=== PATIENT | female | born 1945 | race African-American/Black ===

== ENCOUNTER → 2016-03-05 | Outpatient (CLI) | payer OTHER, MEDICAID ==
[~2016-03-05] MED LIST: ASPI81TA27 PO; CLOP75TA28 PO; GABA300C PO; GLIM4TAB42 PO; HYDR25TA4 PO; INSUINJ32 SC; LOS50T PO; MAGN400T5 PO; METF-316 PO; METO50TA7 PO; OMEP20CA5 PO; SIMV-8 PO; TRAM50TA2 PO
[2016-03-05 08:44] LABS: Urine Bilirubin Negative (Negative); Urine Blood TRACE /uL (Negative); Urine Color Yellow (Yellow); Urine Ketone Negative (Negative); Urine Nitrite Negative (Negative); Urine Urobilinogen Normal (Negative); Urine pH 5.5 (5.0-8.0)
[2016-03-05 08:45] LABS: Urine Glucose 3+ mg/dL (Normal)
[2016-03-05 08:53] LABS: INR 1.06 (0.9-1.15); Partial Thromboplastin Time 26.4 sec (22.64-33.71); Prothrombin Time 10.9 sec (9.37-12.3)
[2016-03-05 09:17] LABS: Albumin 3.5 g/dL (3.4-5.0); BUN/Creatinine Ratio 21.9; Bilirubin, Total 0.4 mg/dL (0.2-1.0); Calcium 9.5 mg/dL (8.5-10.1); Potassium 3.8 mmol/L (3.5-5.1); Total Protein 7.6 g/dL (6.4-8.2)
[2016-03-05 09:36] LABS: Basophils # (auto) 0.2 uL; Basophils % (auto) 3.9 % (0.0-2.0); DEFINITIVE VIEW TRANSMISSION; Eosinophils # (auto) 0.1 uL; Eosinophils % (auto) 1.5 % (0.0-7.0); Hematocrit 44.9 % (36.0-46.0); Hemoglobin 14.2 g/dL (12.2-16.2); Lymphocytes # (auto) 2.2 uL; Lymphocytes % (auto) 44.3 % (10.0-50.0); Mean Corpuscular Hgb Conc. 31.7 g/dL (32.0-36.0); Mean Corpuscular Volume 91.6 fL (80.0-100.0); Mean Platelet Volume 10.2 fL (7.4-10.4); Monocytes # (auto) 0.3 uL; Neutrophils # (auto) 2.1 uL; Neutrophils % (auto) 43.3 % (37.0-80.0); Platelet Count (auto) 294 10^3/uL (140-450); Red Cell Distribution Width 13.8 % (11.6-16.0); SUSPECT VIEW TRANSMISSION; White Blood Cell 4.9 10^3/uL (4.4-10.8)
== END | disposition home or self-care (01) ==
LOC: LAB 07:24
PROVIDERS: ATTEND Internal Medicine
DX: Z01.812 Encounter for preprocedural laboratory examination (principal)
CPT/HCPCS: 36415; 80053; 81003; 85025; 85610; 85730

== ENCOUNTER 2016-06-01 07:53 | Day surgery (SDC) | payer OTHER, MEDICAID ==
[2016-05-29 08:58] LABS: Basophils # (auto) 0 uL; Basophils % (auto) 0.4 % (0.0-2.0); Eosinophils # (auto) 0.1 uL; Eosinophils % (auto) 1.3 % (0.0-7.0); Hematocrit 43.7 % (36.0-46.0); Hemoglobin 14.2 g/dL (12.2-16.2); Lymphocytes # (auto) 2.2 uL; Lymphocytes % (auto) 38.3 % (10.0-50.0); Mean Corpuscular Hemoglobin 29.6 pg (28.0-32.0); Mean Corpuscular Hgb Conc. 32.5 g/dL (32.0-36.0); Mean Platelet Volume 10.6 fL (7.4-10.4); Monocytes # (auto) 0.4 uL; Monocytes % (auto) 6.2 % (0.0-12.0); Neutrophils % (auto) 53.8 % (37.0-80.0); Platelet Count (auto) 320 10^3/uL (140-450); Red Cell Distribution Width 14.4 % (11.6-16.0); White Blood Cell 5.6 10^3/uL (4.4-10.8)
[2016-05-29 09:11] LABS: INR 0.99 (0.9-1.15); Partial Thromboplastin Time 27.5 sec (22.64-33.71); Prothrombin Time 10.7 sec (9.37-12.3)
[~2016-06-01] VITALS: Ht 170.2 cm; Wt 111.6 kg
[~2016-06-01 07:53] MED LIST changes: -GLIM4TAB42 PO; -MAGN400T5 PO; -METF-316 PO; +METF-372 PO; -OMEP20CA5 PO; +OMEP20CA74 PO
[2016-06-01] MEDS ORDERED: NALOXONE HCL 0.4 MG/ML VIAL ONE (08:12)
[2016-06-01] MEDS ORDERED: FLUMAZENIL 0.1 MG/ML INJ 10ML MDV IV ONE (08:12)
[2016-06-01] MEDS ORDERED: SODIUM CHLORIDE LOCK 10 ML ONE (08:12)
[2016-06-01] MEDS ORDERED: diphenhdrAMINE HCL 50 MG/1 ML VL ONE (08:13)
[2016-06-01] MEDS: fentaNYL CITRATE 100 MCG/2 ML VL ONE ×2 (08:58→09:02)
[2016-06-01] MEDS: MIDAZOLAM HCL 5 MG/ML-1ML VIAL ONE ×2 (08:58→09:02)
[2016-06-01] MEDS ORDERED: LABETALOL HCL 5 MG/ML 4ML SYRINGE IV ONE ×2 (09:48→10:00)
[2016-06-01 10:14] VITALS: BP 144/85
== END 2016-06-01 10:14 | disposition home or self-care (01) ==
LOC: GI 07:53
PROVIDERS: ATTEND Internal Medicine Gastroenterology
DX: Z12.11 Encounter for screening for malignant neoplasm of colon (principal); K64.8 Other hemorrhoids; K57.30 Diverticulosis of large intestine without perforation or abscess without bleeding; K63.89 Other specified diseases of intestine; Z86.010 Personal history of colon polyps; J44.9 Chronic obstructive pulmonary disease, unspecified; J43.9 Emphysema, unspecified; E66.9 Obesity, unspecified; Z98.51 Tubal ligation status; E11.9 Type 2 diabetes mellitus without complications; Z87.891 Personal history of nicotine dependence; Z90.49 Acquired absence of other specified parts of digestive tract
CPT/HCPCS: 36415; 45378; 82962; 85025; 85610; 85730; J1200; J2250; J3010; J3490; J7030

== ENCOUNTER → 2016-08-10 | Outpatient (CLI) | payer OTHER, MEDICAID ==
[2016-08-10 09:43] LABS: Urine Bilirubin Negative (Negative); Urine Blood TRACE /uL (Negative); Urine Color Yellow (Yellow); Urine Ketone Negative (Negative); Urine Nitrite Negative (Negative); Urine Urobilinogen Normal (Negative); Urine pH 5.5 (5.0-8.0)
[2016-08-10 09:47] LABS: Urine Glucose 4+ mg/dL (Normal)
[2016-08-10 09:53] LABS: Basophils # (auto) 0 uL; Basophils % (auto) 0.5 % (0.0-2.0); CONDITION Y; Eosinophils # (auto) 0.1 uL; Eosinophils % (auto) 1.2 % (0.0-7.0); Hematocrit 39.4 % (36.0-46.0); Hemoglobin 13.3 g/dL (12.2-16.2); Lymphocytes # (auto) 2.2 uL; Mean Corpuscular Hemoglobin 30.3 pg (28.0-32.0); Mean Corpuscular Hgb Conc. 33.7 g/dL (32.0-36.0); Mean Corpuscular Volume 89.8 fL (80.0-100.0); Mean Platelet Volume 10.7 fL (7.4-10.4); Monocytes # (auto) 0.3 uL; Monocytes % (auto) 4.8 % (0.0-12.0); Neutrophils # (auto) 3.1 uL; Neutrophils % (auto) 54.5 % (37.0-80.0); Platelet Count (auto) 333 10^3/uL (140-450); Red Cell Distribution Width 14.6 % (11.6-16.0); White Blood Cell 5.7 10^3/uL (4.4-10.8)
[2016-08-10 09:58] LABS: INR 0.99 (0.9-1.15); Partial Thromboplastin Time 26.9 sec (22.64-33.71); Prothrombin Time 10.8 sec (9.37-12.3)
[2016-08-10 10:07] LABS: Albumin 3.2 g/dL (3.4-5.0); BUN/Creatinine Ratio 21.2; Bilirubin, Total 0.3 mg/dL (0.2-1.0); Calcium 9.2 mg/dL (8.5-10.1); Potassium 3.8 mmol/L (3.5-5.1); Total Protein 7.1 g/dL (6.4-8.2)
== END | disposition home or self-care (01) ==
LOC: LAB 07:45
PROVIDERS: ATTEND Specialist
DX: H25.12 Age-related nuclear cataract, left eye (principal); Z01.812 Encounter for preprocedural laboratory examination; Z79.01 Long term (current) use of anticoagulants; D68.318 Other hemorrhagic disorder due to intrinsic circulating anticoagulants, antibodies, or inhibitors; E11.9 Type 2 diabetes mellitus without complications; E78.5 Hyperlipidemia, unspecified; E11.69 Type 2 diabetes mellitus with other specified complication
CPT/HCPCS: 36415; 80053; 80061; 81003; 82043; 82306; 83036; 84443; 85025; 85610; 85730

== ENCOUNTER → 2016-12-01 | Outpatient (CLI) | payer OTHER, MEDICAID | END | disposition home or self-care (01) | LOC: XYW 08:39 | PROVIDERS: ATTEND Internal Medicine Cardiovascular Disease | DX: I49.9 Cardiac arrhythmia, unspecified (principal); J44.9 Chronic obstructive pulmonary disease, unspecified | CPT/HCPCS: 93306 ==

== ENCOUNTER → 2017-03-08 | Outpatient (CLI) | payer OTHER, MEDICAID ==
[2017-03-08 08:54] LABS: Basophils # (auto) 0.1 uL; Basophils % (auto) 1.2 % (0.0-2.0); Eosinophils # (auto) 0 uL; Hematocrit 39.5 % (36.0-46.0); Lymphocytes # (auto) 1.9 uL; Lymphocytes % (auto) 40.5 % (10.0-50.0); Mean Corpuscular Hemoglobin 29.3 pg (28.0-32.0); Mean Corpuscular Hgb Conc. 32.9 g/dL (32.0-36.0); Monocytes # (auto) 0.5 uL; Monocytes % (auto) 10.3 % (0.0-12.0); Neutrophils # (auto) 2.3 uL; Nucleated Red Blood Cells % 0.1 %; Platelet Count (auto) 339 10^3/uL (140-450); Red Blood Cells 4.44 10^6/uL (4.0-5.20); Red Cell Distribution Width 14.3 % (11.8-14.3); White Blood Cell 4.8 10^3/uL (4.4-10.8)
[2017-03-08 09:00] LABS: Urine Bacteria MANY /hpf (None Seen); Urine Blood Negative /uL (Negative); Urine Mucus FEW (None Seen); Urine Specific Gravity 1.014 (1.001-1.035); Urine WBC 130 /hpf (0 - 5); Urine WBC Clumps PRESENT /hpf (None Seen)
[2017-03-08 09:22] LABS: Albumin 3.4 g/dL (3.4-5.0); BUN/Creatinine Ratio 18.1; Bilirubin, Total 0.3 mg/dL (0.2-1.0); Calcium 9.4 mg/dL (8.5-10.1); Potassium 3.8 mmol/L (3.5-5.1); Total Protein 7.6 g/dL (6.4-8.2)
== END | disposition home or self-care (01) ==
LOC: LAB 08:08
PROVIDERS: ATTEND Physician Assistant
DX: I10 Essential (primary) hypertension (principal); E78.2 Mixed hyperlipidemia; E11.40 Type 2 diabetes mellitus with diabetic neuropathy, unspecified; E88.9 Metabolic disorder, unspecified
CPT/HCPCS: 36415; 80053; 80061; 81001; 83036; 85025

== ENCOUNTER → 2017-04-13 | Outpatient (CLI) | payer OTHER, MEDICAID ==
[2017-04-13 10:43] LABS: Basophils # (auto) 0 uL; Basophils % (auto) 0.5 % (0.0-2.0); Eosinophils # (auto) 0 uL; Eosinophils % (auto) 0.7 % (0.0-7.0); Hemoglobin 13.4 g/dL (12.2-16.2); Lymphocytes # (auto) 1.8 uL; Lymphocytes % (auto) 31.4 % (10.0-50.0); Mean Corpuscular Hemoglobin 29.1 pg (28.0-32.0); Mean Corpuscular Hgb Conc. 32.6 g/dL (32.0-36.0); Mean Corpuscular Volume 89.4 fL (80.0-100.0); Monocytes # (auto) 0.5 uL; Monocytes % (auto) 9.6 % (0.0-12.0); Neutrophils # (auto) 3.3 uL; Neutrophils % (auto) 57.8 % (37.0-80.0); Nucleated Red Blood Cells % 0.1 %; Platelet Count (auto) 328 10^3/uL (140-450); Red Blood Cells 4.59 10^6/uL (4.0-5.20); Red Cell Distribution Width 14.2 % (11.8-14.3); White Blood Cell 5.7 10^3/uL (4.4-10.8)
[2017-04-13 11:08] LABS: Folate (Folic Acid) 16.15 ng/mL (5.38-24)
== END | disposition home or self-care (01) ==
LOC: LAB 10:23
DX: D64.9 Anemia, unspecified (principal); I10 Essential (primary) hypertension; E11.9 Type 2 diabetes mellitus without complications; J44.9 Chronic obstructive pulmonary disease, unspecified
CPT/HCPCS: 36415; 82607; 82746; 85025

== ENCOUNTER → 2017-06-01 | Outpatient (CLI) | payer OTHER, MEDICAID | END | disposition home or self-care (01) | LOC: LAB 12:49 | PROVIDERS: ATTEND Physician Assistant | DX: I12.9 Hypertensive chronic kidney disease with stage 1 through stage 4 chronic kidney disease, or unspecified chronic kidney disease (principal); E11.22 Type 2 diabetes mellitus with diabetic chronic kidney disease; E11.40 Type 2 diabetes mellitus with diabetic neuropathy, unspecified; N18.3 Chronic kidney disease, stage 3 (moderate); E53.8 Deficiency of other specified B group vitamins; E78.2 Mixed hyperlipidemia; R53.83 Other fatigue; R42 Dizziness and giddiness | CPT/HCPCS: 36415; 82607; 84443 ==

== ENCOUNTER → 2017-12-13 | Outpatient (CLI) | payer OTHER, MEDICARE, MEDICAID ==
[~2017-12-13] MED LIST changes: +MET5XLT PO; -METO50TA7 PO
[2017-12-13 08:51] LABS: Eosinophils # (auto) 0.1 uL; Hemoglobin 11.9 g/dL (12.2-16.2); Red Cell Distribution Width 15.8 % (11.8-14.3)
[2017-12-13 08:53] LABS: Basophils # (auto) 0 uL; Eosinophils % (auto) 1.6 % (0.0-7.0); Hematocrit 37.2 % (36.0-46.0); Lymphocytes # (auto) 1.7 uL; Mean Corpuscular Hemoglobin 25.9 pg (28.0-32.0); Monocytes # (auto) 0.5 uL; Monocytes % (auto) 10.4 % (0.0-12.0); Neutrophils # (auto) 2.5 uL; Platelet Count (auto) 398 10^3/uL (140-450); Red Blood Cells 4.59 10^6/uL (4.0-5.20); White Blood Cell 4.8 10^3/uL (4.4-10.8)
[2017-12-13 09:03] LABS: Urine Bacteria MANY /hpf (None Seen); Urine Blood TRACE /uL (Negative); Urine Mucus FEW (None Seen); Urine Specific Gravity 1.023 (1.001-1.035); Urine WBC 108 /hpf (0 - 5); Urine WBC Clumps PRESENT /hpf (None Seen)
[2017-12-13 09:15] LABS: Albumin 3.6 g/dL (3.4-5.0); BUN/Creatinine Ratio 16.6; Calcium 9.5 mg/dL (8.5-10.1); Potassium 3.9 mmol/L (3.5-5.1)
[2017-12-13 09:21] LABS: Bilirubin, Total 0.4 mg/dL (0.2-1.0); Total Protein 8.1 g/dL (6.4-8.2)
== END | disposition home or self-care (01) ==
LOC: LAB 08:28
PROVIDERS: ATTEND Physician Assistant
DX: I12.9 Hypertensive chronic kidney disease with stage 1 through stage 4 chronic kidney disease, or unspecified chronic kidney disease (principal); E10.22 Type 1 diabetes mellitus with diabetic chronic kidney disease; N18.3 Chronic kidney disease, stage 3 (moderate); E10.69 Type 1 diabetes mellitus with other specified complication; E78.2 Mixed hyperlipidemia
CPT/HCPCS: 36415; 80053; 80061; 81001; 83036; 85025

== ENCOUNTER 2017-12-24 22:09 | Emergency (ER) | payer OTHER, MEDICARE, MEDICAID ==
[~2017-12-24] VITALS: Ht 170.2 cm; Wt 104.8 kg
[2017-12-24 23:55] LABS: Basophils # (auto) 0.1 uL; Eosinophils # (auto) 0.3 uL; Hemoglobin 11.6 g/dL (12.2-16.2); Lymphocytes # (auto) 0.8 uL; Mean Corpuscular Volume 81.1 fL (80.0-100.0); White Blood Cell 7.2 10^3/uL (4.4-10.8)
[2017-12-24 23:57] LABS: Eosinophils % (auto) 4.2 % (0.0-7.0); Hematocrit 36.4 % (36.0-46.0); Lymphocytes % (auto) 11.3 % (10.0-50.0); Mean Corpuscular Hemoglobin 25.9 pg (28.0-32.0); Mean Corpuscular Hgb Conc. 31.9 g/dL (32.0-36.0); Monocytes # (auto) 0.4 uL; Monocytes % (auto) 6.1 % (0.0-12.0); Neutrophils # (auto) 5.5 uL; Neutrophils % (auto) 77.4 % (37.0-80.0); Nucleated Red Blood Cells % 0.2 %; Platelet Count (auto) 343 10^3/uL (140-450); Red Blood Cells 4.49 10^6/uL (4.0-5.20); Red Cell Distribution Width 15.7 % (11.8-14.3)
[2017-12-25 00:09] LABS: Albumin 3.5 g/dL (3.4-5.0); BUN/Creatinine Ratio 9.5; Calcium 8.8 mg/dL (8.5-10.1); Potassium 3.8 mmol/L (3.5-5.1)
[2017-12-25 00:11] LABS: Bilirubin, Total 0.5 mg/dL (0.2-1.0); Total Protein 7.8 g/dL (6.4-8.2)
[2017-12-25 03:39] VITALS: BP 118/69
[2017-12-25] MEDS ORDERED: KETOROLAC TROMETH 60MG/2ML VIAL IM ONE (05:00)
[2017-12-25] MEDS ORDERED: KETOROLAC TROMETH 30 MG/ML 1ML VIAL IV ONE (05:15)
== END 2017-12-25 05:27 | disposition home or self-care (01) ==
LOC: ER 22:25
DX: S70.02XA Contusion of left hip, initial encounter (principal); K59.00 Constipation, unspecified; M54.5 Low back pain; J44.9 Chronic obstructive pulmonary disease, unspecified; E11.9 Type 2 diabetes mellitus without complications; I10 Essential (primary) hypertension; I25.2 Old myocardial infarction; Z88.6 Allergy status to analgesic agent; W19.XXXA Unspecified fall, initial encounter; Y93.89 Activity, other specified; Y92.89 Other specified places as the place of occurrence of the external cause; Y99.8 Other external cause status
CPT/HCPCS: 36415; 73552; 74176; 80053; 85025; 93005; 96374; 99285; J1885

== ENCOUNTER → 2018-06-13 | Outpatient (CLI) | payer OTHER, MEDICARE, MEDICAID ==
[2018-06-13 12:01] LABS: Basophils # (auto) 0.1 uL; Eosinophils # (auto) 0.1 uL; Hematocrit 33.7 % (36.0-46.0); Hemoglobin 10.4 g/dL (12.2-16.2); Lymphocytes # (auto) 2.5 uL; Lymphocytes % (auto) 42.9 % (10.0-50.0); Mean Corpuscular Hemoglobin 23.4 pg (28.0-32.0); Mean Corpuscular Volume 75.5 fL (80.0-100.0); Monocytes # (auto) 0.5 uL; Monocytes % (auto) 8.3 % (0.0-12.0); Neutrophils # (auto) 2.7 uL; Neutrophils % (auto) 45.8 % (37.0-80.0); Nucleated Red Blood Cells % 0.1 %; Platelet Count (auto) 416 10^3/uL (140-450); Red Blood Cells 4.46 10^6/uL (4.0-5.20); Red Cell Distribution Width 16.7 % (11.8-14.3); White Blood Cell 5.9 10^3/uL (4.4-10.8)
[2018-06-13 12:43] LABS: Potassium 4.2 mmol/L (3.5-5.1)
[2018-06-13 12:58] LABS: Albumin 3.6 g/dL (3.4-5.0); BUN/Creatinine Ratio 17.4; Bilirubin, Total 0.4 mg/dL (0.2-1.0); Calcium 9.7 mg/dL (8.5-10.1); Total Protein 7.9 g/dL (6.4-8.2)
[2018-06-13 14:33] LABS: Free T4 (Free Thyroxine) 1.24 ng/dL (0.89-1.76); T3 Total 0.95 ng/mL (0.60-1.81)
== END | disposition home or self-care (01) ==
LOC: LAB 10:26
PROVIDERS: ATTEND Internal Medicine
DX: E11.9 Type 2 diabetes mellitus without complications (principal); I10 Essential (primary) hypertension; R06.00 Dyspnea, unspecified; R07.89 Other chest pain
CPT/HCPCS: 36415; 80053; 80061; 82306; 82607; 83036; 84439; 84443; 84480; 85025

== ENCOUNTER → 2018-06-27 | Outpatient (CLI) | payer OTHER, MEDICARE, MEDICAID ==
[~2018-06-27] VITALS: Ht 170.2 cm; Wt 108.9 kg
[~2018-06-27] MED LIST changes: +ADENOSINE 91 MG in GIVE UN-DILUTED 0 ML IV STA
[2018-06-27 09:21] VITALS: BP 133/82
== END | disposition home or self-care (01) ==
LOC: XY 08:11
PROVIDERS: ATTEND Internal Medicine
DX: I10 Essential (primary) hypertension (principal); R07.9 Chest pain, unspecified
CPT/HCPCS: 78452; 93017; A9500; J0153

== ENCOUNTER → 2018-06-29 | Outpatient (CLI) | payer OTHER, MEDICARE, MEDICAID ==
[~2018-06-29] MED LIST changes: -ADENOSINE 91 MG in GIVE UN-DILUTED 0 ML IV STA
== END | disposition home or self-care (01) ==
LOC: XYW 10:52
PROVIDERS: ATTEND Internal Medicine
DX: R07.9 Chest pain, unspecified (principal); I11.9 Hypertensive heart disease without heart failure
CPT/HCPCS: 93306

== ENCOUNTER 2018-10-27 09:37 | Emergency (ER) | payer OTHER, MEDICAID ==
[~2018-10-27] VITALS: Ht 170.2 cm; Wt 105.2 kg
[~2018-10-27 09:37] MED LIST changes: +ASPI-404 PO; -ASPI81TA27 PO; -MET5XLT PO; +METO-6 PO
[2018-10-27] MEDS ORDERED: GABA800T97 (09:48)
[2018-10-27] MEDS ORDERED: HYDR50TA69 (09:48)
[2018-10-27] MEDS ORDERED: FERR1TAB8 (09:48)
[2018-10-27] MEDS ORDERED: OMEPRAZOLE (09:48)
[2018-10-27] MEDS ORDERED: GLIM4TAB42 (09:48)
[2018-10-27] MEDS ORDERED: ZOLP5TAB5 (09:48)
[2018-10-27] MEDS ORDERED: METO-169 (09:48)
[2018-10-27] MEDS ORDERED: ROSU1TAB14 (09:48)
[2018-10-27] MEDS ORDERED: HCTZ25T (09:48)
[2018-10-27] MEDS ORDERED: ASPI1TAB19 (09:48)
[2018-10-27] MEDS ORDERED: LISI40TA (09:48)
[2018-10-27] MEDS ORDERED: AMLO10TA13 (09:48)
[2018-10-27] MEDS ORDERED: ERGO1CAP6 (09:48)
[2018-10-27] MEDS ORDERED: SODIUM CHLORIDE 0.9% 1,000 ML IV ONE (10:14)
[2018-10-27] MEDS ORDERED: InsuLIN REG 1unit/0.01ml Soln (100units/ml) IV ONE (10:15)
[2018-10-27 10:19] LABS: Eosinophils # (auto) 0.1 uL; Mean Corpuscular Volume 79.5 fL (80.0-100.0); Monocytes # (auto) 0.4 uL; Nucleated Red Blood Cells % 0.1 %; White Blood Cell 4.2 10^3/uL (4.4-10.8)
[2018-10-27 10:24] LABS: Basophils # (auto) 0 uL; Basophils % (auto) 1.2 % (0.0-2.0); Eosinophils % (auto) 1.7 % (0.0-7.0); Hematocrit 35.4 % (36.0-46.0); Lymphocytes # (auto) 1.5 uL; Mean Corpuscular Hemoglobin 24.7 pg (28.0-32.0); Mean Corpuscular Hgb Conc. 31.1 g/dL (32.0-36.0); Monocytes % (auto) 8.8 % (0.0-12.0); Neutrophils # (auto) 2.1 uL; Neutrophils % (auto) 51.3 % (37.0-80.0); Platelet Count (auto) 319 10^3/uL (140-450); Red Blood Cells 4.46 10^6/uL (4.0-5.20); Red Cell Distribution Width 18.4 % (11.8-14.3)
[2018-10-27 10:34] LABS: Albumin 3.5 g/dL (3.4-5.0); BUN/Creatinine Ratio 24.6; Calcium 9.2 mg/dL (8.5-10.1); Potassium 3.9 mmol/L (3.5-5.1)
[2018-10-27 10:37] LABS: Bilirubin, Total 0.3 mg/dL (0.2-1.0); Total Protein 7.8 g/dL (6.4-8.2)
[2018-10-27 12:52] VITALS: BP 172/87
[2018-10-27 13:51] LABS: Urine Bacteria FEW /hpf (None Seen); Urine Blood Negative /uL (Negative); Urine Specific Gravity 1.018 (1.001-1.035); Urine WBC 18 /hpf (0 - 5)
== END 2018-10-27 13:24 | disposition home or self-care (01) ==
LOC: ER 09:37
DX: E11.65 Type 2 diabetes mellitus with hyperglycemia (principal); J44.9 Chronic obstructive pulmonary disease, unspecified; I10 Essential (primary) hypertension; I25.2 Old myocardial infarction; Z88.6 Allergy status to analgesic agent; Z79.899 Other long term (current) drug therapy; Z79.4 Long term (current) use of insulin
CPT/HCPCS: 36415; 80053; 81001; 82962; 85025; 94761; 96361; 96374; 99283; J1815

== ENCOUNTER 2018-11-21 08:29 | Day surgery (SDC) | payer OTHER, MEDICAID ==
[2018-11-17 11:43] LABS: Basophils # (auto) 0.1 uL; Eosinophils # (auto) 0 uL; Hemoglobin 11.3 g/dL (12.2-16.2); Monocytes # (auto) 0.4 uL
[2018-11-17 11:45] LABS: Basophils % (auto) 1.3 % (0.0-2.0); Eosinophils % (auto) 0.8 % (0.0-7.0); Lymphocytes # (auto) 2.1 uL; Lymphocytes % (auto) 45.5 % (10.0-50.0); Mean Corpuscular Hemoglobin 25.9 pg (28.0-32.0); Mean Corpuscular Hgb Conc. 32.2 g/dL (32.0-36.0); Mean Corpuscular Volume 80.5 fL (80.0-100.0); Monocytes % (auto) 9.1 % (0.0-12.0); Neutrophils % (auto) 43.3 % (37.0-80.0); Platelet Count (auto) 421 10^3/uL (140-450); Red Blood Cells 4.35 10^6/uL (4.0-5.20); Red Cell Distribution Width 18.6 % (11.8-14.3); White Blood Cell 4.6 10^3/uL (4.4-10.8)
[2018-11-17 12:00] LABS: INR 0.99 (0.9-1.15); Partial Thromboplastin Time 29.6 sec (23.64-32.05)
[2018-11-17 13:30] LABS: Calcium 9.3 mg/dL (8.5-10.1)
[2018-11-17 13:31] LABS: Albumin 4.1 g/dL (3.4-5.0); Bilirubin, Total 0.3 mg/dL (0.2-1.0); Potassium 4.1 mmol/L (3.5-5.1); Total Protein 7.9 g/dL (6.4-8.2)
[~2018-11-21] VITALS: Ht 170.2 cm; Wt 106.6 kg
[~2018-11-21 08:29] MED LIST changes: +AMLO10TA13; +ERGO1CAP6; +FERR1TAB8; -GABA300C PO; +GABA800T97; +GLIM4TAB42; +HYDR50TA69; +INSUINJ18 SC; -INSUINJ32 SC; +LISI40TA; -LOS50T PO; +METO-169; -METO-6 PO; +ROSU1TAB14; -SIMV-8 PO; -TRAM50TA2 PO; +ZOLP5TAB5
[2018-11-21] MEDS ORDERED: MEPERIDINE HCL (25 MG/ML) 1ML VIAL ONE (09:42)
[2018-11-21] MEDS ORDERED: MIDAZOLAM HCL 1MG/1ML-2 ML VIAL ONE (09:42)
[2018-11-21] MEDS ORDERED: fentaNYL CITRATE 100 MCG/2 ML VL ONE (09:42)
[2018-11-21] MEDS ORDERED: ePHEDrine SULFATE 50 MG/ML AMP IV PRN (09:45)
[2018-11-21] MEDS ORDERED: ACCU-CHEK COMFORT CURVE STRIP VI ONE (09:45)
[2018-11-21] MEDS ORDERED: HYDROmorphone HCL 2 MG/ML VL IV PRN (09:45)
[2018-11-21] MEDS ORDERED: ONDANSETRON HCL 4 MG/2 ML VIAL IV PRN (09:45)
[2018-11-21] MEDS ORDERED: MIDAZOLAM HCL 1MG/1ML-2 ML VIAL IV PRN (09:45)
[2018-11-21] MEDS ORDERED: KETOROLAC TROMETH 30 MG/ML 1ML VIAL IV ONE (09:45)
[2018-11-21] MEDS ORDERED: LABETALOL HCL 5 MG/ML 4ML SYRINGE IV PRN (09:45)
[2018-11-21] MEDS ORDERED: DexAMETHasone SOD PHOS 10MG/1ML VIAL INJ ONE (10:21)
[2018-11-21] MEDS ORDERED: PROPOFOL 10 MG/ML 20 ML IV ONE (10:21)
[2018-11-21 11:22] VITALS: BP 146/84
== END 2018-11-21 11:24 | disposition home or self-care (01) ==
LOC: GI 08:29
PROVIDERS: ATTEND Internal Medicine Gastroenterology
DX: K59.00 Constipation, unspecified (principal); D12.3 Benign neoplasm of transverse colon; K63.89 Other specified diseases of intestine; K57.30 Diverticulosis of large intestine without perforation or abscess without bleeding; K64.8 Other hemorrhoids; E78.5 Hyperlipidemia, unspecified; E11.22 Type 2 diabetes mellitus with diabetic chronic kidney disease; I13.0 Hypertensive heart and chronic kidney disease with heart failure and stage 1 through stage 4 chronic kidney disease, or unspecified chronic kidney disease; N18.2 Chronic kidney disease, stage 2 (mild); I50.89 Other heart failure; E78.00 Pure hypercholesterolemia, unspecified; E66.01 Morbid (severe) obesity due to excess calories; G47.33 Obstructive sleep apnea (adult) (pediatric); I25.10 Atherosclerotic heart disease of native coronary artery without angina pectoris; I48.91 Unspecified atrial fibrillation; J43.9 Emphysema, unspecified; Z86.010 Personal history of colon polyps; Z88.5 Allergy status to narcotic agent; Z85.038 Personal history of other malignant neoplasm of large intestine; Z98.51 Tubal ligation status; Z78.0 Asymptomatic menopausal state; Z98.890 Other specified postprocedural states; Z79.899 Other long term (current) drug therapy; Z68.38 Body mass index [BMI] 38.0-38.9, adult; Z87.891 Personal history of nicotine dependence; Z79.84 Long term (current) use of oral hypoglycemic drugs; Z79.4 Long term (current) use of insulin
CPT/HCPCS: 36415; 45380; 80053; 82962; 85025; 85610; 85730; 88305; J1100; J2175; J2250; J2704; J3010; J7030

== ENCOUNTER 2019-03-11 08:10 | Emergency (ER) | payer OTHER, MEDICAID ==
[~2019-03-11] VITALS: Ht 170.2 cm; Wt 106.6 kg
[2019-03-11 09:19] LABS: Basophils # (auto) 0.1 uL; Eosinophils # (auto) 0.1 uL; Monocytes # (auto) 0.4 uL; Neutrophils # (auto) 2.7 uL
[2019-03-11 09:22] LABS: Basophils % (auto) 1.3 % (0.0-2.0); Eosinophils % (auto) 1.7 % (0.0-7.0); Hematocrit 36.7 % (36.0-46.0); Hemoglobin 11.8 g/dL (12.2-16.2); Lymphocytes % (auto) 37.3 % (10.0-50.0); Mean Corpuscular Hemoglobin 26.6 pg (28.0-32.0); Mean Corpuscular Hgb Conc. 32.1 g/dL (32.0-36.0); Mean Corpuscular Volume 82.8 fL (80.0-100.0); Monocytes % (auto) 8.4 % (0.0-12.0); Neutrophils % (auto) 51.3 % (37.0-80.0); Nucleated Red Blood Cells % 0.1 %; Platelet Count (auto) 402 10^3/uL (140-450); Red Blood Cells 4.43 10^6/uL (4.0-5.20); Red Cell Distribution Width 15.9 % (11.8-14.3); White Blood Cell 5.3 10^3/uL (4.4-10.8)
[2019-03-11 09:25] LABS: Urine Bacteria FEW /hpf (None Seen); Urine Blood Negative /uL (Negative); Urine Mucus FEW (None Seen); Urine Specific Gravity 1.021 (1.001-1.035); Urine WBC 32 /hpf (0 - 5)
[2019-03-11 09:43] LABS: Albumin 3.4 g/dL (3.4-5.0); Calcium 9.1 mg/dL (8.5-10.1); Potassium 3.7 mmol/L (3.5-5.1)
[2019-03-11 09:45] LABS: BUN/Creatinine Ratio 12.8
[2019-03-11 09:48] LABS: Bilirubin, Total 0.2 mg/dL (0.2-1.0); Total Protein 7.8 g/dL (6.4-8.2)
[2019-03-11] MEDS ORDERED: FLEET MINERAL OIL ENEMA 133 ML PR ONE (10:30)
[2019-03-11] MEDS ORDERED: cefTRIAXone 1GM/50ML D5W 50 ML IV ONE (10:30)
[2019-03-11 12:25] VITALS: BP 138/77
== END 2019-03-11 12:37 | disposition home or self-care (01) ==
LOC: ER 08:10
DX: N39.0 Urinary tract infection, site not specified (principal); E66.9 Obesity, unspecified; D35.02 Benign neoplasm of left adrenal gland; J44.9 Chronic obstructive pulmonary disease, unspecified; E11.9 Type 2 diabetes mellitus without complications; I10 Essential (primary) hypertension; I25.2 Old myocardial infarction; Z79.4 Long term (current) use of insulin; Z88.6 Allergy status to analgesic agent
CPT/HCPCS: 36415; 74176; 80053; 81001; 83690; 84443; 85025; 93005; 96365; 99284; J0696

== ENCOUNTER → 2019-10-25 | Outpatient (CLI) | payer OTHER, MEDICAID ==
[~2019-10-25] MED LIST changes: -ASPI-404 PO; +ASPI-543 PO; +ERGO1CAP12; -ERGO1CAP6; -LISI40TA; +LISI40TA11
[2019-10-25 08:29] LABS: Basophils # (auto) 0.1 10 ^3/uL (0-0.2); Basophils % (auto) 1.2 % (0.0-2.0); Eosinophils # (auto) 0.1 10 ^3/uL (0-0.8); Eosinophils % (auto) 2.3 % (0.0-7.0); Hematocrit 39.4 % (36.0-46.0); Hemoglobin 12.5 g/dL (12.2-16.2); Lymphocytes # (auto) 2.2 10 ^3/uL (0.4-5.4); Lymphocytes % (auto) 40.2 % (10.0-50.0); Mean Corpuscular Hgb Conc. 31.6 g/dL (32.0-36.0); Mean Corpuscular Volume 91.7 fL (80.0-100.0); Monocytes # (auto) 0.4 10 ^3/uL (0-1.3); Monocytes % (auto) 7.3 % (0.0-12.0); Neutrophils # (auto) 2.7 10 ^3/uL (1.6-8.6); Platelet Count (auto) 347 10^3/uL (140-450); Red Cell Distribution Width 14.6 % (11.8-14.3); White Blood Cell 5.6 10^3/uL (4.4-10.8)
[2019-10-25 08:51] LABS: Albumin 3.2 g/dL (3.4-5.0); Calcium 9.3 mg/dL (8.5-10.1); Potassium 4.3 mmol/L (3.5-5.1)
[2019-10-25 08:56] LABS: BUN/Creatinine Ratio 23.7; Bilirubin, Total 0.2 mg/dL (0.2-1.0); Total Protein 7.1 g/dL (6.4-8.2)
[2019-10-25 22:44] LABS: Protein, Urine 53.6 mg/dL (0.0-11.9)
== END | disposition home or self-care (01) ==
LOC: LAB 07:52
DX: E11.65 Type 2 diabetes mellitus with hyperglycemia (principal); D64.9 Anemia, unspecified
CPT/HCPCS: 36415; 80053; 80061; 82043; 82570; 82607; 83036; 84156; 85025

== ENCOUNTER 2019-12-14 15:24 | Observation (INO) | payer OTHER, MEDICAID ==
[~2019-12-14] VITALS: Ht 170.2 cm; Wt 108.7 kg
[2019-12-14 16:40] LABS: Basophils # (auto) 0.1 10 ^3/uL (0-0.2); Basophils % (auto) 1.4 % (0.0-2.0); Eosinophils # (auto) 0.1 10 ^3/uL (0-0.8); Eosinophils % (auto) 1.6 % (0.0-7.0); Hematocrit 38.6 % (36.0-46.0); Hemoglobin 12.6 g/dL (12.2-16.2); Lymphocytes # (auto) 1.9 10 ^3/uL (0.4-5.4); Lymphocytes % (auto) 33.6 % (10.0-50.0); Mean Corpuscular Hemoglobin 29.7 pg (28.0-32.0); Mean Corpuscular Hgb Conc. 32.6 g/dL (32.0-36.0); Mean Corpuscular Volume 91.1 fL (80.0-100.0); Monocytes # (auto) 0.4 10 ^3/uL (0-1.3); Monocytes % (auto) 7.8 % (0.0-12.0); Neutrophils # (auto) 3.1 10 ^3/uL (1.6-8.6); Neutrophils % (auto) 55.6 % (37.0-80.0); Nucleated Red Blood Cells % 0.1 %; Platelet Count (auto) 346 10^3/uL (140-450); Red Blood Cells 4.24 10^6/uL (4.0-5.20); Red Cell Distribution Width 14.4 % (11.8-14.3); White Blood Cell 5.6 10^3/uL (4.4-10.8)
[2019-12-14 16:56] LABS: Albumin 3.2 g/dL (3.4-5.0); Anion Gap 6 (5-15); Blood Urea Nitrogen 26 mg/dL (7-18); Calcium 9.1 mg/dL (8.5-10.1); Carbon Dioxide 25 mmol/L (21-32); Chloride 107 mmol/L (98-107); Glucose 236 mg/dL (74-106); Potassium 4.1 mmol/L (3.5-5.1); Sodium 138 mmol/L (136-145)
[2019-12-14 17:02] LABS: Alanine Aminotransferase 17 U/L (13-56); Alkaline Phosphatase 94 U/L (45-117); Aspartate Aminotransferase 18 U/L (15-37); Bilirubin, Total 0.3 mg/dL (0.2-1.0); GFR African American 57 mL/min; GFR Non-African American 47 mL/min; Total Protein 6.9 g/dL (6.4-8.2)
[2019-12-14] MEDS ORDERED: INSULIN LISPRO (HUMAN) 100 UNITS/ML ML SC ONE (20:30)
[2019-12-14] MEDS ORDERED: DOCUSATE SOD 100 MG CAP PO PRN (23:45)
[2019-12-14] MEDS ORDERED: HYDROcodone-ACET 5/325MG TAB PO PRN (23:45)
[2019-12-14] MEDS ORDERED: NITROGLYCERIN 0.4 MG SL TAB SL PRN (23:45)
[2019-12-14] MEDS ORDERED: MORPHINE SULF INJ 2 MG/ML SYRINGE 1ML IV PRN (23:45)
[2019-12-14] MEDS ORDERED: ONDANSETRON HCL 4 MG/2 ML VIAL IV PRN (23:45)
[2019-12-14] MEDS ORDERED: MORPHINE SULFATE 4 MG/ML SYR/VIAL IV PRN (23:45)
[2019-12-14] MEDS ORDERED: DEXTROSE (50%) 50ML SYRG IV PRN (23:45)
[2019-12-14] MEDS ORDERED: ACETAMINOPHEN 325 MG TAB PO PRN (23:45)
[2019-12-15] MEDS ORDERED: ERGOCALCIFEROL 50,000 UNIT(1.25MG) CAP PO SCH (00:30)
[2019-12-15] MEDS ORDERED: ZOLPIDEM TARTRATE 5 MG TAB PO PRN (00:45)
[2019-12-15] MEDS ORDERED: GABAPENTIN 300 MG CAP PO ONE (00:45)
[2019-12-15 01:11] VITALS: BP 143/87
--- NOTE | 2019-12-15 01:11 | NUR ---
Telemetry admit from ER [facility] admitted to Telemetry unit. Patient oriented to primary RN, unit, room, bed, and unit policies regarding patient care and visiting hours. Fall and safety precautions in place. Call light within reach and able to use. Patient now on continuous telemetry monitoring, tele box #[id number] and telemetry reading on arrival to unit is SR 73 BPM. Patient weighed by bedscale and encouraged to call if they need something. All questions and concerns addressed, patient verbalized understanding and in agreement. Will continue to monitor q1h and prn.
--- NOTE | 2019-12-15 02:52 | NUR ---
NOTIFIED PCP OF PATIENT'S ADMISSION PER PATIENT REQUEST, CALLED TO NOTIFY PATIENT'S PCP - DR. Omar BIGGS - OF PATIENT ADMISSION TO [facility]. NO ANSWER, LEFT VOICEMAIL WITH ELSA AND CALLBACK NUMBER.
[2019-12-15] MEDS ORDERED: PNEUMOCOCCAL VACC POLYS 25 MCG/0.5 ML VIAL IM ONE (03:15)
[2019-12-15 05:00] VITALS: BP 156/81
[2019-12-15] MEDS: ACCU-CHEK COMFORT CURVE STRIP VI SCH ×3 (06:09→17:00)
[2019-12-15] MEDS: SODIUM CHLOR 0.9% PF (SALINE LOCK) 10ML VIAL/SYR IV SCH ×2 (06:09→14:24)
[2019-12-15] MEDS: GABAPENTIN 300 MG CAP PO SCH ×2 (06:09→14:26)
[2019-12-15] MEDS: InsuLIN REG 1unit/0.01ml Soln (100units/ml) SC SCH ×3 (06:11→17:00)
[2019-12-15 07:59] LABS: Basophils # (auto) 0 10 ^3/uL (0-0.2); Basophils % (auto) 0.4 % (0.0-2.0); Eosinophils # (auto) 0.1 10 ^3/uL (0-0.8); Eosinophils % (auto) 2.2 % (0.0-7.0); Hemoglobin 12.7 g/dL (12.2-16.2); Lymphocytes % (auto) 42.5 % (10.0-50.0); Mean Corpuscular Hemoglobin 29.8 pg (28.0-32.0); Mean Corpuscular Hgb Conc. 32.5 g/dL (32.0-36.0); Mean Corpuscular Volume 91.8 fL (80.0-100.0); Monocytes # (auto) 0.4 10 ^3/uL (0-1.3); Monocytes % (auto) 7.5 % (0.0-12.0); Neutrophils # (auto) 2.3 10 ^3/uL (1.6-8.6); Neutrophils % (auto) 47.4 % (37.0-80.0); Nucleated Red Blood Cells % 0.1 %; Platelet Count (auto) 335 10^3/uL (140-450); Red Blood Cells 4.25 10^6/uL (4.0-5.20); Red Cell Distribution Width 14.4 % (11.8-14.3); White Blood Cell 4.8 10^3/uL (4.4-10.8)
[2019-12-15 08:35] LABS: Albumin 3.1 g/dL (3.4-5.0); BUN/Creatinine Ratio 21.9; Bilirubin, Total 0.3 mg/dL (0.2-1.0); Calcium 8.8 mg/dL (8.5-10.1); Total Protein 6.7 g/dL (6.4-8.2)
[2019-12-15 09:53] VITALS: BP 146/97
[2019-12-15] MEDS ORDERED: ASPirin-EC 81 mg tab PO SCH (10:00)
[2019-12-15] MEDS ORDERED: CLOPIDOGREL BISULFATE 75 MG TAB PO SCH (10:00)
[2019-12-15] MEDS ORDERED: ENOXAPARIN SOD 40 MG/0.4 ML SYRINGE SC SCH (10:00)
[2019-12-15 14:58] LABS: Free T4 (Free Thyroxine) 0.93 ng/dL (0.89-1.76)
--- NOTE | 2019-12-15 14:58 | NUR ---
12/15/2019 1453 Presented patient/member with [facility] letter, explained information about observation vs inpatient, patient/member had no questions, signed letter, left patient/member with her own copy of letter.
[2019-12-15 14:59] LABS: Free T3 2.69 pg/mL (2.3-4.2)
--- NOTE | 2019-12-15 16:23 | NUR ---
Assessment Patient is a 74-year-old female who is alert and oriented. Prior to admission patient lived home alone and functioned independently. Per patient she can care for her own ADL's. Per patient she will return home to her prior living arrangements post discharge and she will transport her self home. Patient states she drove her self to the hospital. Advised patient there is a social service consult for a walker. Patient refused the walker. Patient requested information for In home support services and private caregivers. Information was given to patient. Informed patient she has the right to participate in all discharge planning. Patient verbalized understanding and agreed to discharge plan. Addendum: 12/15/19 at 1626 by NIKKI CAO Amended: Links added.
--- NOTE | 2019-12-15 17:43 | NUR ---
Spoke with Dr. Morin regarding Thyroid Ultrasound results. Per Dr. Morin, continue with discharge pt to followup with testing as outpatient.
[2019-12-15 18:07] VITALS: BP 153/83
--- NOTE | 2019-12-15 19:02 | NUR ---
Discharge instructions given as ordered. Encourage to follow up with PMD as instructed. All questions and concerns addressed. Patient verbalized understanding. Medication reconciliation form completed and copy given to patient. Needed vaccines given. IV removed with catheter intact, pressure dressing applied. Telemetry unit returned to ICU. Patient taken to vehicle via wheelchair with all personal belongings, accompanied by staff. No distress noted at time of departure.
[2019-12-15] MEDS ORDERED: ATORVASTATIN 20 MG TAB PO SCH (22:00)
[2019-12-15] MEDS ORDERED: InsuLIN REG 1unit/0.01ml Soln (100units/ml) SC SCH (22:00)
== END 2019-12-15 19:02 | disposition home or self-care (01) ==
LOC: ER 15:24 → TELE 15:25 → INTOOBSV 15:25 → TELE-CENTR 12-15 01:07
PROVIDERS: ADMIT Nurse Practitioner Family; ATTEND Internal Medicine
DX: I12.9 Hypertensive chronic kidney disease with stage 1 through stage 4 chronic kidney disease, or unspecified chronic kidney disease (principal); E11.22 Type 2 diabetes mellitus with diabetic chronic kidney disease; E11.21 Type 2 diabetes mellitus with diabetic nephropathy; N18.30 Chronic kidney disease, stage 3 unspecified; E11.65 Type 2 diabetes mellitus with hyperglycemia; R42 Dizziness and giddiness; E66.01 Morbid (severe) obesity due to excess calories; E78.5 Hyperlipidemia, unspecified; J44.9 Chronic obstructive pulmonary disease, unspecified; I25.2 Old myocardial infarction; H05.20 Unspecified exophthalmos; I70.0 Atherosclerosis of aorta; Z23 Encounter for immunization; Z87.440 Personal history of urinary (tract) infections; Z85.038 Personal history of other malignant neoplasm of large intestine; Z98.41 Cataract extraction status, right eye; Z98.42 Cataract extraction status, left eye; Z90.49 Acquired absence of other specified parts of digestive tract; Z95.5 Presence of coronary angioplasty implant and graft; Z79.4 Long term (current) use of insulin; Z79.899 Other long term (current) drug therapy; Z88.5 Allergy status to narcotic agent
CPT/HCPCS: 36415; 70450; 71045; 76536; 80053; 80061; 82962; 83036; 83735; 84439; 84443; 84481; 84484; 85025; 90471; 90732; 93306; 93886; 96372; 99285; G0378; J1815; 93975

== ENCOUNTER → 2020-01-24 | Outpatient (CLI) | payer OTHER, MEDICAID ==
[2020-01-24 08:18] LABS: Urine WBC None Seen /hpf (0 - 5)
[2020-01-24 08:47] LABS: Urine Bacteria FEW /hpf (None Seen); Urine Blood Negative /uL (Negative); Urine Mucus FEW (None Seen); Urine Specific Gravity 1.019 (1.001-1.035)
[2020-01-24 09:34] LABS: Calcium 9.1 mg/dL (8.5-10.1); Potassium 4.4 mmol/L (3.5-5.1)
[2020-01-24 09:36] LABS: BUN/Creatinine Ratio 21.9
== END | disposition home or self-care (01) ==
LOC: LAB 08:03
PROVIDERS: ATTEND Internal Medicine Nephrology
DX: N18.30 Chronic kidney disease, stage 3 unspecified (principal); N39.0 Urinary tract infection, site not specified
CPT/HCPCS: 36415; 80048; 81001; 82306; 83970; 87086

== ENCOUNTER → 2020-01-24 | Outpatient (CLI) | payer OTHER, MEDICAID ==
--- NOTE | 2020-01-24 12:13 | NUR ---
PATIENT UNDERWENT SUCCESSFUL BILAT THYROID FNA PER DR MATHEWS UNDER LOCAL ANESTHETIC IN .S. DEPT. PATIENT ZOE. WELL. BANDAIDS APPLIED TO BILAT NECK INJECTION SITES. PATIENT ISNTRUCTED ON S/S INFECTION AND GIVEN THYROID BIOPSY AFTERCARE INFORMATION SHEET. PATIENT DISCHARGED HOME PER AMBULATORY IN STABLE CONDITION.
== END | disposition home or self-care (01) ==
LOC: US 09:41
PROVIDERS: ATTEND Radiology Diagnostic Radiology
DX: E04.1 Nontoxic single thyroid nodule (principal); J43.9 Emphysema, unspecified; I25.10 Atherosclerotic heart disease of native coronary artery without angina pectoris; Z88.5 Allergy status to narcotic agent; Z98.890 Other specified postprocedural states; Z79.899 Other long term (current) drug therapy; Z98.51 Tubal ligation status; Z87.891 Personal history of nicotine dependence; Z80.0 Family history of malignant neoplasm of digestive organs; Z80.41 Family history of malignant neoplasm of ovary; Z95.5 Presence of coronary angioplasty implant and graft
CPT/HCPCS: 10005; 10022; 76942

== ENCOUNTER 2020-02-06 17:19 | Inpatient (IN) | payer OTHER, MEDICAID ==
[~2020-02-06] VITALS: Ht 170.2 cm; Wt 102.0 kg
[~2020-02-06 17:19] MED LIST changes: -AMLO10TA13; +AMLO10TA13 PO; -ERGO1CAP12; +ERGO1CAP12 PO; -GABA800T97; +GABA800T97 PO; -GLIM4TAB42; +GLIM4TAB42 PO; -LISI40TA11; +LISI40TA11 PO; -METO-169; +METO-169 PO
[2020-02-06] MEDS ORDERED: methylPREDNISolone SOD SUCC 125 MG/2 ML VL IV ONE (18:30)
[2020-02-06 19:31] LABS: Basophils # (auto) 0 10 ^3/uL (0-0.2); Basophils % (auto) 0.4 % (0.0-2.0); Eosinophils # (auto) 0 10 ^3/uL (0-0.8); Hematocrit 41.8 % (36.0-46.0); Hemoglobin 14.2 g/dL (12.2-16.2); Lymphocytes # (auto) 0.7 10 ^3/uL (0.4-5.4); Lymphocytes % (auto) 14.2 % (10.0-50.0); Mean Corpuscular Hgb Conc. 33.9 g/dL (32.0-36.0); Mean Corpuscular Volume 88.4 fL (80.0-100.0); Monocytes # (auto) 0.3 10 ^3/uL (0-1.3); Monocytes % (auto) 6.4 % (0.0-12.0); Neutrophils # (auto) 3.7 10 ^3/uL (1.6-8.6); Nucleated Red Blood Cells % 0.1 %; Platelet Count (auto) 261 10^3/uL (140-450); Red Blood Cells 4.72 10^6/uL (4.0-5.20); Red Cell Distribution Width 14.4 % (11.8-14.3); White Blood Cell 4.7 10^3/uL (4.4-10.8)
[2020-02-06 19:42] LABS: BUN/Creatinine Ratio 19.2; Calcium 8.4 mg/dL (8.5-10.1); Potassium 4.3 mmol/L (3.5-5.1)
[2020-02-06 19:51] LABS: Bilirubin, Total 0.3 mg/dL (0.2-1.0); CRP High Sensitivity 9.56 mg/dL (< 0.3)
[2020-02-06] MEDS ORDERED: AZITHROMYCIN 500MG/ 250ML 250 ML IV ONE (20:00)
[2020-02-06 21:41] LABS: Lactic Acid w/Reflex 2.1 mmol/L (0.4-2.0)
[2020-02-07] MEDS ORDERED: DEXTROSE (50%) 50ML SYRG IV PRN ×3 (05:00→18:00)
[2020-02-07] MEDS ORDERED: ONDANSETRON HCL 4 MG/2 ML VIAL IV PRN (05:00)
[2020-02-07] MEDS ORDERED: MORPHINE SULF INJ 2 MG/ML SYRINGE 1ML IV PRN (05:00)
[2020-02-07] MEDS ORDERED: TEMAZEPAM 15 MG CAP PO PRN (05:00)
[2020-02-07] MEDS ORDERED: NITROGLYCERIN 0.4 MG SL TAB SL PRN (05:00)
[2020-02-07] MEDS ORDERED: ACCU-CHEK COMFORT CURVE STRIP VI SCH ×2 (06:00→11:30)
[2020-02-07] MEDS ORDERED: InsuLIN REG 1unit/0.01ml Soln (100units/ml) SC SCH ×3 (06:00→22:00)
[2020-02-07] MEDS ORDERED: OMEP-260 PO (09:47)
[2020-02-07] MEDS ORDERED: INSU100I51 SC (09:47)
[2020-02-07] MEDS ORDERED: AZIT250T8 PO (09:50)
[2020-02-07] MEDS ORDERED: ALBUAER3 IN (09:50)
[2020-02-07] MEDS ORDERED: AMOX-277 PO (09:50)
[2020-02-07] MEDS ORDERED: MECL25TA18 PO (09:50)
[2020-02-07] MEDS: AZITHROMYCIN 500MG/ 250ML 250 ML IV SCH (09:59)
[2020-02-07] MEDS ORDERED: ENOXAPARIN SOD 40 MG/0.4 ML SYRINGE SC SCH (10:00)
[2020-02-07] MEDS: ZINC SULFATE 220mg CAP or TAB PO SCH (10:10)
[2020-02-07] MEDS: DexAMETHasone SOD PHOS 10MG/1ML VIAL INJ IV SCH (10:10)
[2020-02-07] MEDS: GABAPENTIN 400 MG CAP PO SCH ×2 (10:11→22:47)
[2020-02-07] MEDS: CLOPIDOGREL BISULFATE 75 MG TAB PO SCH (10:11)
[2020-02-07] MEDS: HCTZ 25 MG TAB PO SCH (10:11)
[2020-02-07] MEDS: PANTOPRAZOLE 40 MG TAB PO SCH (10:12)
[2020-02-07] MEDS: METOPROLOL SUCCINATE XL 50 MG TAB PO SCH (10:12)
[2020-02-07] MEDS: LISINOPRIL 20 MG TAB PO SCH (10:13)
[2020-02-07] MEDS: CHOLECALCIFEROL (VITD3) 2,000 UNIT CAP PO SCH (10:13)
[2020-02-07] MEDS: ASCORBIC ACID 1,000 MG TAB PO SCH (10:13)
[2020-02-07] MEDS ORDERED: INSULIN LANTUS (GLARGINE) 1 /0.01ml (100units/ml) SC ONE (17:15)
[2020-02-07] MEDS: ACCU-CHEK COMFORT CURVE STRIP VI SCH (18:13)
[2020-02-07] MEDS: InsuLIN REG 1unit/0.01ml Soln (100units/ml) SC SCH (18:22)
[2020-02-07] MEDS: ATORVASTATIN 20 MG TAB PO SCH (22:46)
[2020-02-07] MEDS: INSULIN LANTUS (GLARGINE) 1 /0.01ml (100units/ml) SC SCH (22:47)
[2020-02-08] MEDS: InsuLIN REG 1unit/0.01ml Soln (100units/ml) SC SCH ×4 (02:35→17:52)
[2020-02-08 02:56] VITALS: BP 105/61
[2020-02-08] MEDS: ACCU-CHEK COMFORT CURVE STRIP VI SCH ×4 (06:00→17:51)
[2020-02-08] MEDS: ACETAMINOPHEN 325 MG TAB PO PRN ×2 (06:53→21:05)
[2020-02-08 07:53] LABS: Basophils # (auto) 0 10 ^3/uL (0-0.2); Basophils % (auto) 0.1 % (0.0-2.0); Eosinophils # (auto) 0 10 ^3/uL (0-0.8); Hematocrit 38.5 % (36.0-46.0); Lymphocytes # (auto) 0.5 10 ^3/uL (0.4-5.4); Lymphocytes % (auto) 6.8 % (10.0-50.0); Mean Corpuscular Hgb Conc. 33.8 g/dL (32.0-36.0); Mean Corpuscular Volume 88.7 fL (80.0-100.0); Monocytes # (auto) 0.3 10 ^3/uL (0-1.3); Monocytes % (auto) 4.3 % (0.0-12.0); Neutrophils # (auto) 6.1 10 ^3/uL (1.6-8.6); Neutrophils % (auto) 88.8 % (37.0-80.0); Nucleated Red Blood Cells % 0.1 %; Platelet Count (auto) 265 10^3/uL (140-450); Red Blood Cells 4.34 10^6/uL (4.0-5.20); Red Cell Distribution Width 14.4 % (11.8-14.3); White Blood Cell 6.9 10^3/uL (4.4-10.8)
[2020-02-08 08:00] VITALS: BP 104/62
[2020-02-08 08:27] LABS: Albumin 2.6 g/dL (3.4-5.0); Bilirubin, Total 0.4 mg/dL (0.2-1.0); Total Protein 7.1 g/dL (6.4-8.2)
[2020-02-08] MEDS: AZITHROMYCIN 500MG/ 250ML 250 ML IV SCH (10:22)
[2020-02-08] MEDS: LISINOPRIL 20 MG TAB PO SCH (10:23)
[2020-02-08] MEDS: GABAPENTIN 400 MG CAP PO SCH ×2 (10:23→22:21)
[2020-02-08] MEDS: ZINC SULFATE 220mg CAP or TAB PO SCH (10:23)
[2020-02-08] MEDS: PANTOPRAZOLE 40 MG TAB PO SCH (10:23)
[2020-02-08] MEDS: CLOPIDOGREL BISULFATE 75 MG TAB PO SCH (10:24)
[2020-02-08] MEDS: ASCORBIC ACID 1,000 MG TAB PO SCH (10:24)
[2020-02-08] MEDS: METOPROLOL SUCCINATE XL 50 MG TAB PO SCH (10:24)
[2020-02-08] MEDS: HCTZ 25 MG TAB PO SCH (10:24)
[2020-02-08] MEDS: DexAMETHasone SOD PHOS 10MG/1ML VIAL INJ IV SCH (10:25)
[2020-02-08] MEDS: ENOXAPARIN SOD 40 MG/0.4 ML SYRINGE SC SCH ×2 (10:26→22:21)
[2020-02-08] MEDS: CHOLECALCIFEROL (VITD3) 2,000 UNIT CAP PO SCH (10:27)
[2020-02-08] MEDS ORDERED: cefTRIAXone 1GM/50ML D5W 50 ML IV ONE (12:45)
[2020-02-08] MEDS ORDERED: FUROSEMIDE 20 MG/2 ML VIAL IV ONE (12:45)
[2020-02-08] MEDS ORDERED: diphenhdrAMINE HCL 50 MG/1 ML VL IV PRN (12:45)
[2020-02-08] MEDS ORDERED: REMDESIVIR PER PHARMACY 0 ML IV SCH (12:45)
[2020-02-08] MEDS: guaiFENesin-DM 100/10mg/5ml SYR PO PRN ×2 (15:00→21:05)
[2020-02-08] MEDS ORDERED: REMDESIVIR 200 MG in NS 210ml LOADING DOSE ADULT IV ONE (15:00)
[2020-02-08 16:00] VITALS: BP 99/55
[2020-02-08] MEDS: INSULIN LANTUS (GLARGINE) 1 /0.01ml (100units/ml) SC SCH ×2 (22:00→22:20)
[2020-02-08] MEDS: ATORVASTATIN 20 MG TAB PO SCH (22:21)
[2020-02-08] MEDS: FAMOTIDINE (10MG/ML) 2ML VL IV SCH (22:21)
[2020-02-09] VITALS: BP 100/63
[2020-02-09] MEDS: ACCU-CHEK COMFORT CURVE STRIP VI SCH ×5 (00:08→23:13)
[2020-02-09] MEDS: InsuLIN REG 1unit/0.01ml Soln (100units/ml) SC SCH ×5 (00:18→23:13)
[2020-02-09 06:43] LABS: Potassium 3.8 mmol/L (3.5-5.1)
[2020-02-09 06:51] LABS: Albumin 2.3 g/dL (3.4-5.0); BUN/Creatinine Ratio 31.2; Bilirubin, Total 0.2 mg/dL (0.2-1.0); Calcium 8.3 mg/dL (8.5-10.1)
[2020-02-09 08:00] VITALS: BP 124/91
[2020-02-09] MEDS: AZITHROMYCIN 500MG/ 250ML 250 ML IV SCH (09:17)
[2020-02-09] MEDS: cefTRIAXone 1GM/50ML D5W 50 ML IV SCH (09:17)
[2020-02-09] MEDS: GABAPENTIN 400 MG CAP PO SCH ×2 (09:18→22:43)
[2020-02-09] MEDS: CLOPIDOGREL BISULFATE 75 MG TAB PO SCH (09:18)
[2020-02-09] MEDS: ZINC SULFATE 220mg CAP or TAB PO SCH (09:18)
[2020-02-09] MEDS: METOPROLOL SUCCINATE XL 50 MG TAB PO SCH (09:18)
[2020-02-09] MEDS: PANTOPRAZOLE 40 MG TAB PO SCH (09:18)
[2020-02-09] MEDS: CHOLECALCIFEROL (VITD3) 2,000 UNIT CAP PO SCH (09:19)
[2020-02-09] MEDS: ASCORBIC ACID 1,000 MG TAB PO SCH (09:19)
[2020-02-09] MEDS: FUROSEMIDE 20 MG/2 ML VIAL IV SCH (09:19)
[2020-02-09] MEDS: FAMOTIDINE (10MG/ML) 2ML VL IV SCH ×2 (09:19→22:42)
[2020-02-09] MEDS: DexAMETHasone SOD PHOS 10MG/1ML VIAL INJ IV SCH (09:19)
[2020-02-09] MEDS: ENOXAPARIN SOD 40 MG/0.4 ML SYRINGE SC SCH ×2 (09:20→22:44)
[2020-02-09 12:36] LABS: Urine Bacteria MANY /hpf (None Seen); Urine Blood Negative /uL (Negative); Urine Specific Gravity 1.014 (1.001-1.035); Urine WBC 3 /hpf (0 - 5)
[2020-02-09] MEDS: guaiFENesin-DM 100/10mg/5ml SYR PO PRN (14:21)
[2020-02-09] MEDS: REMDESIVIR 100 MG in SODIUM CHL 0.9% 250 ML IV SCH (15:00)
[2020-02-09] MEDS: ALBUTEROL SULF HFA 90MCG INH 200DOSE IN PRN ×2 (15:47→19:49)
[2020-02-09 16:00] VITALS: BP 107/66
[2020-02-09] MEDS ORDERED: SODIUM CHLORIDE 0.9% 1,000 ML IV SCH (16:30)
[2020-02-09] MEDS: INSULIN LANTUS (GLARGINE) 1 /0.01ml (100units/ml) SC SCH ×2 (22:00→23:11)
[2020-02-09] MEDS: ATORVASTATIN 20 MG TAB PO SCH (22:43)
[2020-02-09] MEDS: ACETAMINOPHEN 325 MG TAB PO PRN (22:44)
[2020-02-10] VITALS: BP 114/72
[2020-02-10] MEDS: guaiFENesin-DM 100/10mg/5ml SYR PO PRN (00:21)
[2020-02-10] MEDS: ACCU-CHEK COMFORT CURVE STRIP VI SCH ×4 (06:00→22:07)
[2020-02-10] MEDS: ALBUTEROL SULF HFA 90MCG INH 200DOSE IN PRN ×2 (06:15→20:55)
[2020-02-10] MEDS: InsuLIN REG 1unit/0.01ml Soln (100units/ml) SC SCH ×4 (06:54→22:09)
[2020-02-10 08:00] VITALS: BP 112/71
[2020-02-10] MEDS: cefTRIAXone 1GM/50ML D5W 50 ML IV SCH (09:54)
[2020-02-10] MEDS: AZITHROMYCIN 500MG/ 250ML 250 ML IV SCH (09:54)
[2020-02-10] MEDS: FUROSEMIDE 20 MG/2 ML VIAL IV SCH (09:55)
[2020-02-10] MEDS: ENOXAPARIN SOD 40 MG/0.4 ML SYRINGE SC SCH ×2 (09:55→22:07)
[2020-02-10] MEDS: DexAMETHasone SOD PHOS 10MG/1ML VIAL INJ IV SCH (09:55)
[2020-02-10] MEDS: ASCORBIC ACID 1,000 MG TAB PO SCH (09:55)
[2020-02-10] MEDS: ASPirin 81 mg TAB PO SCH (09:55)
[2020-02-10] MEDS: ZINC SULFATE 220mg CAP or TAB PO SCH (09:56)
[2020-02-10] MEDS: GABAPENTIN 400 MG CAP PO SCH ×2 (09:56→22:05)
[2020-02-10] MEDS: CLOPIDOGREL BISULFATE 75 MG TAB PO SCH (09:56)
[2020-02-10] MEDS: PANTOPRAZOLE 40 MG TAB PO SCH (09:56)
[2020-02-10] MEDS: CHOLECALCIFEROL (VITD3) 2,000 UNIT CAP PO SCH (09:57)
[2020-02-10] MEDS: METOPROLOL SUCCINATE XL 50 MG TAB PO SCH (09:58)
[2020-02-10] MEDS: FAMOTIDINE (10MG/ML) 2ML VL IV SCH ×2 (10:20→22:05)
[2020-02-10] MEDS: ACETAMINOPHEN 325 MG TAB PO PRN (11:49)
[2020-02-10 12:03] LABS: Potassium 3.5 mmol/L (3.5-5.1)
[2020-02-10 12:11] LABS: Albumin 2.5 g/dL (3.4-5.0); Bilirubin, Total 0.3 mg/dL (0.2-1.0); Calcium 8.4 mg/dL (8.5-10.1); Total Protein 7.5 g/dL (6.4-8.2)
[2020-02-10] MEDS: REMDESIVIR 100 MG in SODIUM CHL 0.9% 250 ML IV SCH (15:19)
[2020-02-10 15:59] VITALS: BP 101/63
[2020-02-10] MEDS ORDERED: InsuLIN REG 1unit/0.01ml Soln (100units/ml) IV ONE (19:00)
[2020-02-10] MEDS: ATORVASTATIN 20 MG TAB PO SCH (22:05)
[2020-02-10] MEDS: INSULIN LANTUS (GLARGINE) 1 /0.01ml (100units/ml) SC SCH (22:07)
[2020-02-10 22:11] VITALS: BP 109/60
[2020-02-11] VITALS: BP 109/60
[2020-02-11] MEDS: guaiFENesin-DM 100/10mg/5ml SYR PO PRN ×2 (01:22→22:36)
[2020-02-11] MEDS: ACETAMINOPHEN 325 MG TAB PO PRN (01:22)
[2020-02-11] MEDS: ACCU-CHEK COMFORT CURVE STRIP VI SCH ×5 (01:30→22:00)
[2020-02-11] MEDS: InsuLIN REG 1unit/0.01ml Soln (100units/ml) SC SCH ×6 (01:32→22:40)
[2020-02-11] MEDS: ALBUTEROL SULF HFA 90MCG INH 200DOSE IN PRN ×2 (06:53→20:00)
[2020-02-11 07:14] LABS: Basophils # (auto) 0 10 ^3/uL (0-0.2); Basophils % (auto) 0.1 % (0.0-2.0); Eosinophils # (auto) 0 10 ^3/uL (0-0.8); Hematocrit 38.3 % (36.0-46.0); Hemoglobin 12.9 g/dL (12.2-16.2); Lymphocytes # (auto) 0.9 10 ^3/uL (0.4-5.4); Lymphocytes % (auto) 20.5 % (10.0-50.0); Mean Corpuscular Hemoglobin 29.5 pg (28.0-32.0); Mean Corpuscular Hgb Conc. 33.6 g/dL (32.0-36.0); Mean Corpuscular Volume 87.7 fL (80.0-100.0); Monocytes # (auto) 0.3 10 ^3/uL (0-1.3); Monocytes % (auto) 7.9 % (0.0-12.0); Neutrophils % (auto) 71.5 % (37.0-80.0); Nucleated Red Blood Cells % 0.2 %; Platelet Count (auto) 425 10^3/uL (140-450); Red Blood Cells 4.37 10^6/uL (4.0-5.20); Red Cell Distribution Width 14.7 % (11.8-14.3); White Blood Cell 4.2 10^3/uL (4.4-10.8)
[2020-02-11 07:59] LABS: Potassium 3.5 mmol/L (3.5-5.1)
[2020-02-11 08:00] VITALS: BP 123/73
[2020-02-11 08:12] LABS: Albumin 2.3 g/dL (3.4-5.0); BUN/Creatinine Ratio 35.2; Bilirubin, Total 0.2 mg/dL (0.2-1.0); Calcium 8.7 mg/dL (8.5-10.1); Total Protein 6.6 g/dL (6.4-8.2)
[2020-02-11] MEDS: DexAMETHasone SOD PHOS 10MG/1ML VIAL INJ IV SCH (09:39)
[2020-02-11] MEDS: cefTRIAXone 1GM/50ML D5W 50 ML IV SCH (09:39)
[2020-02-11] MEDS: FAMOTIDINE (10MG/ML) 2ML VL IV SCH ×2 (09:40→22:36)
[2020-02-11] MEDS: ASPirin 81 mg TAB PO SCH (09:40)
[2020-02-11] MEDS: ZINC SULFATE 220mg CAP or TAB PO SCH (09:40)
[2020-02-11] MEDS: FUROSEMIDE 20 MG/2 ML VIAL IV SCH (09:40)
[2020-02-11] MEDS: GABAPENTIN 400 MG CAP PO SCH ×2 (09:41→22:37)
[2020-02-11] MEDS: CLOPIDOGREL BISULFATE 75 MG TAB PO SCH (09:41)
[2020-02-11] MEDS: PANTOPRAZOLE 40 MG TAB PO SCH (09:41)
[2020-02-11] MEDS: METOPROLOL SUCCINATE XL 50 MG TAB PO SCH (09:42)
[2020-02-11] MEDS: CHOLECALCIFEROL (VITD3) 2,000 UNIT CAP PO SCH (09:42)
[2020-02-11] MEDS: ASCORBIC ACID 1,000 MG TAB PO SCH (09:42)
[2020-02-11] MEDS: ENOXAPARIN SOD 40 MG/0.4 ML SYRINGE SC SCH ×2 (09:43→22:36)
[2020-02-11] MEDS: INSULIN LANTUS (GLARGINE) 1 /0.01ml (100units/ml) SC SCH ×2 (11:32→22:38)
[2020-02-11] MEDS: AZITHROMYCIN 500MG/ 250ML 250 ML IV SCH (11:34)
[2020-02-11 12:01] LABS: Urine Bacteria NONE SEEN /hpf (None Seen); Urine Blood Negative /uL (Negative); Urine Specific Gravity 1.021 (1.001-1.035); Urine WBC <1 /hpf (0 - 5)
[2020-02-11] MEDS: REMDESIVIR 100 MG in SODIUM CHL 0.9% 250 ML IV SCH (15:20)
[2020-02-11] MEDS: ATORVASTATIN 20 MG TAB PO SCH (22:37)
[2020-02-12] VITALS: BP 122/65
[2020-02-12] MEDS: InsuLIN REG 1unit/0.01ml Soln (100units/ml) SC SCH ×6 (02:32→22:42)
[2020-02-12] MEDS: ACCU-CHEK COMFORT CURVE STRIP VI SCH ×4 (06:33→22:00)
[2020-02-12] MEDS: ACETAMINOPHEN 325 MG TAB PO PRN ×2 (07:05→22:38)
[2020-02-12] MEDS: ALBUTEROL SULF HFA 90MCG INH 200DOSE IN PRN (07:06)
[2020-02-12 07:53] LABS: Potassium 3.4 mmol/L (3.5-5.1)
[2020-02-12 07:58] LABS: Albumin 2.5 g/dL (3.4-5.0); BUN/Creatinine Ratio 26.7; Calcium 8.8 mg/dL (8.5-10.1)
[2020-02-12 08:00] VITALS: BP 117/70
[2020-02-12 08:01] LABS: Bilirubin, Total 0.2 mg/dL (0.2-1.0); Total Protein 7.3 g/dL (6.4-8.2)
[2020-02-12] MEDS: CHOLECALCIFEROL (VITD3) 2,000 UNIT CAP PO SCH (10:00)
[2020-02-12] MEDS: ENOXAPARIN SOD 40 MG/0.4 ML SYRINGE SC SCH ×2 (10:00→22:37)
[2020-02-12] MEDS: PANTOPRAZOLE 40 MG TAB PO SCH (10:00)
[2020-02-12] MEDS: INSULIN LANTUS (GLARGINE) 1 /0.01ml (100units/ml) SC SCH ×2 (10:00→22:40)
[2020-02-12] MEDS ORDERED: ZINC220T6 PO (10:43)
[2020-02-12] MEDS ORDERED: DOXY-286 PO (10:43)
[2020-02-12] MEDS ORDERED: ASCO10003 PO (10:43)
[2020-02-12] MEDS ORDERED: BUDE2SUS3 IN (10:43)
[2020-02-12] MEDS ORDERED: METH4PAK PO (10:43)
[2020-02-12] MEDS: ZINC SULFATE 220mg CAP or TAB PO SCH (10:49)
[2020-02-12] MEDS: cefTRIAXone 1GM/50ML D5W 50 ML IV SCH (10:49)
[2020-02-12] MEDS: CLOPIDOGREL BISULFATE 75 MG TAB PO SCH (10:50)
[2020-02-12] MEDS: DexAMETHasone SOD PHOS 10MG/1ML VIAL INJ IV SCH (10:50)
[2020-02-12] MEDS: FAMOTIDINE (10MG/ML) 2ML VL IV SCH ×2 (10:50→22:43)
[2020-02-12] MEDS: ASCORBIC ACID 1,000 MG TAB PO SCH (10:50)
[2020-02-12] MEDS: METOPROLOL SUCCINATE XL 50 MG TAB PO SCH (10:50)
[2020-02-12] MEDS: GABAPENTIN 400 MG CAP PO SCH ×2 (10:50→22:38)
[2020-02-12] MEDS: FUROSEMIDE 20 MG/2 ML VIAL IV SCH (10:51)
[2020-02-12] MEDS: ASPirin 81 mg TAB PO SCH (10:53)
[2020-02-12] MEDS ORDERED: POTASSIUM CHL 20 Meq TABLET PO ONE (13:30)
[2020-02-12 16:00] VITALS: BP 116/68
[2020-02-12] MEDS: REMDESIVIR 100 MG in SODIUM CHL 0.9% 250 ML IV SCH (16:40)
[2020-02-12] MEDS: guaiFENesin-DM 100/10mg/5ml SYR PO PRN (22:37)
[2020-02-12] MEDS: ATORVASTATIN 20 MG TAB PO SCH (22:38)
[2020-02-13] VITALS: BP_SYST 149; BP_DIAS 68; BP_DIAS 95
[2020-02-13] MEDS: InsuLIN REG 1unit/0.01ml Soln (100units/ml) SC SCH ×6 (02:33→21:36)
[2020-02-13] MEDS: ACCU-CHEK COMFORT CURVE STRIP VI SCH ×5 (06:11→21:15)
[2020-02-13 08:00] VITALS: BP 146/81
[2020-02-13] MEDS: FUROSEMIDE 20 MG/2 ML VIAL IV SCH (10:31)
[2020-02-13] MEDS: ZINC SULFATE 220mg CAP or TAB PO SCH (10:31)
[2020-02-13] MEDS: ASPirin 81 mg TAB PO SCH (10:31)
[2020-02-13] MEDS: DexAMETHasone SOD PHOS 10MG/1ML VIAL INJ IV SCH (10:31)
[2020-02-13] MEDS: cefTRIAXone 1GM/50ML D5W 50 ML IV SCH (10:31)
[2020-02-13] MEDS: CHOLECALCIFEROL (VITD3) 2,000 UNIT CAP PO SCH (10:32)
[2020-02-13] MEDS: PANTOPRAZOLE 40 MG TAB PO SCH (10:32)
[2020-02-13] MEDS: GABAPENTIN 400 MG CAP PO SCH ×2 (10:32→21:14)
[2020-02-13] MEDS: ASCORBIC ACID 1,000 MG TAB PO SCH (10:32)
[2020-02-13] MEDS: CLOPIDOGREL BISULFATE 75 MG TAB PO SCH (10:32)
[2020-02-13] MEDS: METOPROLOL SUCCINATE XL 50 MG TAB PO SCH (10:32)
[2020-02-13] MEDS: INSULIN LANTUS (GLARGINE) 1 /0.01ml (100units/ml) SC SCH ×2 (10:34→21:38)
[2020-02-13] MEDS: ENOXAPARIN SOD 40 MG/0.4 ML SYRINGE SC SCH ×2 (10:35→21:15)
[2020-02-13] MEDS: FAMOTIDINE (10MG/ML) 2ML VL IV SCH ×2 (10:37→21:14)
[2020-02-13] MEDS ORDERED: POTASSIUM CHL 20 Meq TABLET PO ONE (11:15)
[2020-02-13] MEDS ORDERED: DEXTROSE (50%) 50ML SYRG IV PRN (11:15)
[2020-02-13 15:29] VITALS: BP 126/57
[2020-02-13 16:00] VITALS: BP 126/57
[2020-02-13] MEDS: ACETAMINOPHEN 325 MG TAB PO PRN (18:14)
[2020-02-13] MEDS: ALBUTEROL SULF HFA 90MCG INH 200DOSE IN PRN (19:55)
[2020-02-13] MEDS: ATORVASTATIN 20 MG TAB PO SCH (21:15)
[2020-02-14] VITALS: BP 152/85
[2020-02-14] MEDS: InsuLIN REG 1unit/0.01ml Soln (100units/ml) SC SCH ×2 (06:35→10:48)
[2020-02-14] MEDS: ACCU-CHEK COMFORT CURVE STRIP VI SCH ×2 (06:35→10:40)
[2020-02-14 08:00] VITALS: BP 123/81
[2020-02-14] MEDS: ALBUTEROL SULF HFA 90MCG INH 200DOSE IN PRN (08:05)
[2020-02-14] MEDS: ENOXAPARIN SOD 40 MG/0.4 ML SYRINGE SC SCH (10:38)
[2020-02-14] MEDS: FAMOTIDINE (10MG/ML) 2ML VL IV SCH (10:38)
[2020-02-14] MEDS: ASCORBIC ACID 1,000 MG TAB PO SCH (10:39)
[2020-02-14] MEDS: GABAPENTIN 400 MG CAP PO SCH (10:39)
[2020-02-14] MEDS: CLOPIDOGREL BISULFATE 75 MG TAB PO SCH (10:39)
[2020-02-14] MEDS: PANTOPRAZOLE 40 MG TAB PO SCH (10:39)
[2020-02-14] MEDS: ASPirin 81 mg TAB PO SCH (10:39)
[2020-02-14] MEDS: ZINC SULFATE 220mg CAP or TAB PO SCH (10:39)
[2020-02-14] MEDS: METOPROLOL SUCCINATE XL 50 MG TAB PO SCH (10:39)
[2020-02-14] MEDS: CHOLECALCIFEROL (VITD3) 2,000 UNIT CAP PO SCH (10:40)
[2020-02-14] MEDS: INSULIN LANTUS (GLARGINE) 1 /0.01ml (100units/ml) SC SCH (10:48)
== END 2020-02-14 13:00 | disposition home health service (06) | DRG 871 ==
LOC: ER 17:19 → EDBD 17:19 → TELE 02-07 05:08 → TELE-WESTW 02-07 23:16
PROVIDERS: ADMIT Nurse Practitioner; ATTEND Internal Medicine
PROC: XW033E5 Introduction of Remdesivir Anti-infective into Peripheral Vein, Percutaneous Approach, New Technology Group 5 (ICD-10-PCS; principal; 2020-02-08)
DX: A41.89 Other specified sepsis (principal); U07.1 COVID-19; N17.0 Acute kidney failure with tubular necrosis; J96.01 Acute respiratory failure with hypoxia; J12.82 Pneumonia due to coronavirus disease 2019; E87.1 Hypo-osmolality and hyponatremia; I13.0 Hypertensive heart and chronic kidney disease with heart failure and stage 1 through stage 4 chronic kidney disease, or unspecified chronic kidney disease; N39.0 Urinary tract infection, site not specified; D68.59 Other primary thrombophilia; J44.0 Chronic obstructive pulmonary disease with (acute) lower respiratory infection; R65.20 Severe sepsis without septic shock; E87.8 Other disorders of electrolyte and fluid balance, not elsewhere classified; E11.65 Type 2 diabetes mellitus with hyperglycemia; R79.82 Elevated C-reactive protein (CRP); N18.30 Chronic kidney disease, stage 3 unspecified; E78.5 Hyperlipidemia, unspecified; E11.22 Type 2 diabetes mellitus with diabetic chronic kidney disease; E87.6 Hypokalemia; I25.10 Atherosclerotic heart disease of native coronary artery without angina pectoris; I50.9 Heart failure, unspecified; I25.5 Ischemic cardiomyopathy; E66.01 Morbid (severe) obesity due to excess calories; G47.33 Obstructive sleep apnea (adult) (pediatric); Z68.35 Body mass index [BMI] 35.0-35.9, adult; Z90.710 Acquired absence of both cervix and uterus; Z83.3 Family history of diabetes mellitus; Z82.49 Family history of ischemic heart disease and other diseases of the circulatory system; Z86.73 Personal history of transient ischemic attack (TIA), and cerebral infarction without residual deficits; Z95.5 Presence of coronary angioplasty implant and graft; Z88.5 Allergy status to narcotic agent
CPT/HCPCS: 36415; 71045; 80053; 81001; 82728; 82962; 83036; 83605; 83615; 83735; 83880; 84484; 85025; 85379; 86141; 86850; 86900; 86901; 87040; 87086; 94640; 97110; 97530; G0378; J0696; J1100; J1815; J3490

== ENCOUNTER → 2020-09-18 | Day surgery (SDC) | payer OTHER, MEDICAID ==
[2020-09-13 11:15] LABS: Basophils # (auto) 0.1 10 ^3/uL (0-0.2); Hemoglobin 11.9 g/dL (12.2-16.2); Lymphocytes # (auto) 2.3 10 ^3/uL (0.4-5.4); Nucleated Red Blood Cells % 0.1 %; Red Cell Distribution Width 17.9 % (11.8-14.3)
[2020-09-13 11:16] LABS: Basophils % (auto) 1.4 % (0.0-2.0); Eosinophils # (auto) 0.4 10 ^3/uL (0-0.8); Eosinophils % (auto) 5.9 % (0.0-7.0); Lymphocytes % (auto) 38.8 % (10.0-50.0); Mean Corpuscular Hemoglobin 26.6 pg (28.0-32.0); Mean Corpuscular Hgb Conc. 32.1 g/dL (32.0-36.0); Monocytes # (auto) 0.5 10 ^3/uL (0-1.3); Monocytes % (auto) 7.9 % (0.0-12.0); Neutrophils # (auto) 2.8 10 ^3/uL (1.6-8.6); Red Blood Cells 4.47 10^6/uL (4.0-5.20); White Blood Cell 6.1 10^3/uL (4.4-10.8)
[2020-09-13 11:20] LABS: Urine Bacteria FEW /hpf (None Seen); Urine Blood Negative /uL (Negative); Urine Specific Gravity 1.018 (1.001-1.035); Urine WBC 4 /hpf (0 - 5)
[2020-09-13 11:50] LABS: Albumin 3.2 g/dL (3.4-5.0); Calcium 9.1 mg/dL (8.5-10.1); Potassium 4.1 mmol/L (3.5-5.1)
[2020-09-13 11:56] LABS: Bilirubin, Total 0.2 mg/dL (0.2-1.0); Total Protein 7.5 g/dL (6.4-8.2)
[~2020-09-18] VITALS: Ht 170.2 cm; Wt 104.3 kg
[~2020-09-18] MED LIST changes: +ALBUAER3 IN; +AMLO-496 PO; -AMLO10TA13 PO; +ASCO10003 PO; +BUDE2SUS3 IN; +DOXY-286 PO; +EMPA1TAB3 PO; +INSU100I51 SC; -INSUINJ18 SC; +LIDOCAINE VISCOUS 2% 15ML UD ONE; +MECL25TA18 PO; +METH4PAK PO; -METO-169 PO; +METO-289 PO; +MIDAZOLAM HCL 5 MG/ML-1ML VIAL ONE; +OMEP-260 PO; -OMEP20CA74 PO; -ROSU1TAB14; +ZINC220T6 PO; +diphenhdrAMINE HCL 50 MG/1 ML VL ONE; +fentaNYL CITRATE 100 MCG/2 ML VL ONE
[2020-09-18 14:00] VITALS: BP 131/71
== END | disposition home or self-care (01) ==
LOC: GI 12:47
PROVIDERS: ATTEND Internal Medicine Gastroenterology
DX: R10.12 Left upper quadrant pain (principal); K44.9 Diaphragmatic hernia without obstruction or gangrene; K29.50 Unspecified chronic gastritis without bleeding; J43.9 Emphysema, unspecified; Z98.51 Tubal ligation status; Z98.890 Other specified postprocedural states; Z79.899 Other long term (current) drug therapy; Z79.82 Long term (current) use of aspirin; Z88.5 Allergy status to narcotic agent; Z87.891 Personal history of nicotine dependence; Z68.36 Body mass index [BMI] 36.0-36.9, adult; Z80.0 Family history of malignant neoplasm of digestive organs; Z80.41 Family history of malignant neoplasm of ovary
CPT/HCPCS: 36415; 43239; 80053; 81001; 82962; 85025; J1200; J2250; J3010; J7030; U0003

== ENCOUNTER → 2021-03-12 | Day surgery (SDC) | payer OTHER, MEDICAID ==
[2021-03-10 09:43] LABS: Basophils # (auto) 0 10 ^3/uL (0-0.2); Basophils % (auto) 0.6 % (0.0-2.0); Eosinophils # (auto) 0.1 10 ^3/uL (0-0.8); Eosinophils % (auto) 2.1 % (0.0-7.0); Hematocrit 39.4 % (36.0-46.0); Hemoglobin 12.8 g/dL (12.2-16.2); Lymphocytes # (auto) 1.4 10 ^3/uL (0.4-5.4); Lymphocytes % (auto) 30.1 % (10.0-50.0); Mean Corpuscular Hemoglobin 27.6 pg (28.0-32.0); Mean Corpuscular Hgb Conc. 32.4 g/dL (32.0-36.0); Mean Corpuscular Volume 85.3 fL (80.0-100.0); Monocytes # (auto) 0.3 10 ^3/uL (0-1.3); Monocytes % (auto) 7.2 % (0.0-12.0); Neutrophils # (auto) 2.9 10 ^3/uL (1.6-8.6); Nucleated Red Blood Cells % 0.2 %; Red Blood Cells 4.63 10^6/uL (4.0-5.20); Red Cell Distribution Width 17.2 % (11.8-14.3); White Blood Cell 4.8 10^3/uL (4.4-10.8)
[2021-03-10 10:19] LABS: Potassium 4.2 mmol/L (3.5-5.1)
[2021-03-10 10:30] LABS: Albumin 3.2 g/dL (3.4-5.0); Bilirubin, Total 0.2 mg/dL (0.2-1.0); Calcium 9.1 mg/dL (8.5-10.1); Total Protein 7.2 g/dL (6.4-8.2)
[~2021-03-12] VITALS: Ht 170.2 cm; Wt 97.1 kg
[~2021-03-12] MED LIST changes: -LIDOCAINE VISCOUS 2% 15ML UD ONE; -MIDAZOLAM HCL 5 MG/ML-1ML VIAL ONE; -fentaNYL CITRATE 100 MCG/2 ML VL ONE
[2021-03-12] MEDS: MIDAZOLAM HCL 5 MG/ML-1ML VIAL ONE ×2 (14:10→14:14)
[2021-03-12] MEDS: fentaNYL CITRATE 100 MCG/2 ML VL ONE ×2 (14:10→14:14)
[2021-03-12 14:53] VITALS: BP 149/73
== END | disposition home or self-care (01) ==
LOC: GI 12:34
PROVIDERS: ATTEND Internal Medicine Gastroenterology
DX: K62.5 Hemorrhage of anus and rectum (principal); D12.5 Benign neoplasm of sigmoid colon; K57.30 Diverticulosis of large intestine without perforation or abscess without bleeding; K64.8 Other hemorrhoids; K63.89 Other specified diseases of intestine; I10 Essential (primary) hypertension; E11.40 Type 2 diabetes mellitus with diabetic neuropathy, unspecified; J43.9 Emphysema, unspecified; Z98.51 Tubal ligation status; Z95.5 Presence of coronary angioplasty implant and graft; Z86.010 Personal history of colon polyps; Z87.891 Personal history of nicotine dependence; Z82.49 Family history of ischemic heart disease and other diseases of the circulatory system; Z83.42 Family history of familial hypercholesterolemia; Z82.5 Family history of asthma and other chronic lower respiratory diseases; Z82.61 Family history of arthritis; Z80.3 Family history of malignant neoplasm of breast; Z80.41 Family history of malignant neoplasm of ovary; Z83.3 Family history of diabetes mellitus; Z20.822 Contact with and (suspected) exposure to COVID-19; Z88.6 Allergy status to analgesic agent; K21.9 Gastro-esophageal reflux disease without esophagitis
CPT/HCPCS: 36415; 45380; 80053; 82962; 85025; 88305; J1200; J2250; J3010; J7030; U0003; 99152

== ENCOUNTER → 2021-03-27 | Outpatient (CLI) | payer OTHER, MEDICAID ==
[~2021-03-27] VITALS: Ht 170.2 cm; Wt 97.1 kg
[~2021-03-27] MED LIST changes: +ADENOSINE 82 MG in GIVE UN-DILUTED 0 ML IV STA; +ATOR40TA52 PO; +HYDR25TA5 PO; +NITR0.4S29 SL; +PANT40T PO; -diphenhdrAMINE HCL 50 MG/1 ML VL ONE
== END | disposition home or self-care (01) ==
LOC: XY 09:16
PROVIDERS: ATTEND Internal Medicine
DX: I13.0 Hypertensive heart and chronic kidney disease with heart failure and stage 1 through stage 4 chronic kidney disease, or unspecified chronic kidney disease (principal); I50.9 Heart failure, unspecified; I48.0 Paroxysmal atrial fibrillation; I70.0 Atherosclerosis of aorta; I42.9 Cardiomyopathy, unspecified; E11.42 Type 2 diabetes mellitus with diabetic polyneuropathy; N18.9 Chronic kidney disease, unspecified; E11.22 Type 2 diabetes mellitus with diabetic chronic kidney disease; R42 Dizziness and giddiness; R09.89 Other specified symptoms and signs involving the circulatory and respiratory systems
CPT/HCPCS: 78452; 93017; A9500; J0153

== ENCOUNTER 2021-04-07 17:36 | Inpatient (IN) | payer OTHER, MEDICAID ==
[~2021-04-07] VITALS: Ht 170.2 cm; Wt 99.8 kg
[2021-04-07] MEDS: GABAPENTIN 400 MG CAP PO SCH (00:45)
[~2021-04-07 17:36] MED LIST changes: -ADENOSINE 82 MG in GIVE UN-DILUTED 0 ML IV STA; -ATOR40TA52 PO; -HYDR25TA5 PO; -NITR0.4S29 SL; -PANT40T PO
[2021-04-07] MEDS ORDERED: ASPirin 81 mg TAB PO ONE (18:00)
[2021-04-07 18:55] LABS: Basophils # (auto) 0.1 10 ^3/uL (0-0.2); Eosinophils # (auto) 0.2 10 ^3/uL (0-0.8); Eosinophils % (auto) 3.1 % (0.0-7.0); Hematocrit 41.5 % (36.0-46.0); Hemoglobin 13.5 g/dL (12.2-16.2); Lymphocytes # (auto) 1.4 10 ^3/uL (0.4-5.4); Lymphocytes % (auto) 21.3 % (10.0-50.0); Mean Corpuscular Hemoglobin 27.8 pg (28.0-32.0); Mean Corpuscular Hgb Conc. 32.5 g/dL (32.0-36.0); Mean Corpuscular Volume 85.6 fL (80.0-100.0); Monocytes # (auto) 0.5 10 ^3/uL (0-1.3); Neutrophils # (auto) 4.4 10 ^3/uL (1.6-8.6); Neutrophils % (auto) 66.6 % (37.0-80.0); Nucleated Red Blood Cells % 0.1 %; Red Blood Cells 4.84 10^6/uL (4.0-5.20); Red Cell Distribution Width 16.7 % (11.8-14.3); White Blood Cell 6.6 10^3/uL (4.4-10.8)
[2021-04-07 19:07] LABS: Albumin 3.1 g/dL (3.4-5.0); BUN/Creatinine Ratio 18.3; Calcium 9.3 mg/dL (8.5-10.1); Potassium 4.5 mmol/L (3.5-5.1)
[2021-04-07 19:10] LABS: INR 1.05 (0.9-1.15); Partial Thromboplastin Time 30.5 sec (23.6-33.0)
[2021-04-07 19:12] LABS: Bilirubin, Total 0.2 mg/dL (0.2-1.0); Total Protein 7.2 g/dL (6.4-8.2)
[2021-04-07] MEDS ORDERED: METOPROLOL TARTRATE 1MG/1ML-5ML VIAL IV ONE (19:45)
[2021-04-07] MEDS ORDERED: ENOXAPARIN SOD 100 MG/1 ML SYRINGE SC ONE (19:45)
[2021-04-07] MEDS ORDERED: MORPHINE SULFATE INJECTION 2 MG/ML SYRG IV PRN (20:45)
[2021-04-07] MEDS ORDERED: DEXTROSE (50%) 50ML SYRG IV PRN (20:45)
[2021-04-07] MEDS ORDERED: ONDANSETRON HCL 4 MG/2 ML VIAL IV PRN (20:45)
[2021-04-07] MEDS: ACCU-CHEK COMFORT CURVE STRIP VI SCH (22:00)
[2021-04-08] MEDS: NITROGLYCERIN 0.4 MG SL TAB SL PRN ×2 (00:05→07:43)
[2021-04-08] MEDS: InsuLIN REG 1unit/0.01ml Soln (100units/ml) SC SCH ×5 (00:45→22:18)
[2021-04-08 01:54] VITALS: BP 147/80
[2021-04-08] MEDS ORDERED: HYDR25TA5 PO (03:53)
[2021-04-08] MEDS ORDERED: PANT40T PO (03:53)
[2021-04-08 05:00] VITALS: BP 149/74
[2021-04-08] MEDS: GABAPENTIN 400 MG CAP PO SCH ×3 (06:00→22:18)
[2021-04-08 06:14] LABS: Basophils # (auto) 0.1 10 ^3/uL (0-0.2); Basophils % (auto) 1.6 % (0.0-2.0); Eosinophils # (auto) 0.1 10 ^3/uL (0-0.8); Eosinophils % (auto) 1.7 % (0.0-7.0); Hematocrit 40.3 % (36.0-46.0); Hemoglobin 13.2 g/dL (12.2-16.2); Lymphocytes # (auto) 1.2 10 ^3/uL (0.4-5.4); Lymphocytes % (auto) 18.5 % (10.0-50.0); Mean Corpuscular Hgb Conc. 32.7 g/dL (32.0-36.0); Mean Corpuscular Volume 85.6 fL (80.0-100.0); Monocytes # (auto) 0.7 10 ^3/uL (0-1.3); Monocytes % (auto) 11.2 % (0.0-12.0); Neutrophils # (auto) 4.3 10 ^3/uL (1.6-8.6); Nucleated Red Blood Cells % 0.1 %; Red Blood Cells 4.71 10^6/uL (4.0-5.20); Red Cell Distribution Width 16.4 % (11.8-14.3); White Blood Cell 6.4 10^3/uL (4.4-10.8)
[2021-04-08 06:30] LABS: Calcium 9.3 mg/dL (8.5-10.1); Potassium 4.1 mmol/L (3.5-5.1)
[2021-04-08 06:34] LABS: BUN/Creatinine Ratio 18.2; Bilirubin, Total 0.3 mg/dL (0.2-1.0)
[2021-04-08] MEDS: ACCU-CHEK COMFORT CURVE STRIP VI SCH ×4 (07:00→22:18)
[2021-04-08 08:00] VITALS: BP 103/65
[2021-04-08] MEDS: HYDROcodone-ACET 5/325MG TAB PO PRN (09:19)
[2021-04-08] MEDS: METOPROLOL SUCCINATE XL 50 MG TAB PO SCH (10:00)
[2021-04-08] MEDS: HCTZ 25 MG TAB PO SCH (10:00)
[2021-04-08] MEDS: LISINOPRIL 20 MG TAB PO SCH (10:00)
[2021-04-08] MEDS ORDERED: PANTOPRAZOLE 40 MG TAB PO ONE (10:30)
[2021-04-08] MEDS ORDERED: ENOXAPARIN SOD 100 MG/1 ML SYRINGE SC ONE (10:30)
[2021-04-08] MEDS ORDERED: HYDROmorphone HCL 2 MG/ML VL IV PRN (11:00)
[2021-04-08] MEDS: CLOPIDOGREL BISULFATE 75 MG TAB PO SCH (11:14)
[2021-04-08] MEDS: ASPirin 81 mg TAB PO SCH (11:14)
[2021-04-08 12:00] VITALS: BP 112/67
[2021-04-08] MEDS: ACETAMINOPHEN 325 MG TAB PO PRN (21:20)
[2021-04-08 22:00] VITALS: BP 121/77
[2021-04-08] MEDS: ENOXAPARIN SOD 100 MG/1 ML SYRINGE SC SCH (22:18)
[2021-04-09] VITALS (9 sets, daily range): BP systolic 96–153; BP diastolic 58–95
[2021-04-09] MEDS: GABAPENTIN 400 MG CAP PO SCH ×3 (06:00→22:00)
[2021-04-09] MEDS: ACCU-CHEK COMFORT CURVE STRIP VI SCH ×4 (07:08→22:00)
[2021-04-09] MEDS: InsuLIN REG 1unit/0.01ml Soln (100units/ml) SC SCH ×4 (07:12→22:00)
[2021-04-09 07:15] LABS: Hematocrit 42.5 % (36.0-46.0); Mean Corpuscular Hemoglobin 28.4 pg (28.0-32.0); Mean Corpuscular Volume 86.1 fL (80.0-100.0); Red Blood Cells 4.93 10^6/uL (4.0-5.20); Red Cell Distribution Width 16.6 % (11.8-14.3); White Blood Cell 4.3 10^3/uL (4.4-10.8)
[2021-04-09 07:25] LABS: Basophils % (manual) 0 (0.0-2.0); Blast Cells 0; Metamyelocytes % 0; Myelocytes % 0; Promyelocytes % 0
[2021-04-09 07:32] LABS: BUN/Creatinine Ratio 21.9; Calcium 9.4 mg/dL (8.5-10.1); Potassium 4.3 mmol/L (3.5-5.1)
[2021-04-09 07:39] LABS: INR 1.05 (0.9-1.15); Partial Thromboplastin Time 35.3 sec (23.6-33.0)
[2021-04-09 09:03] LABS: Band Neutrophils % (manual) 3; Eosinophils % (manual) 1 (0-7); Lymphocytes % (manual) 41 (10.0-50.0); Monocytes % (manual) 8 (0-12); Reactive Lymphocytes 4
[2021-04-09] MEDS: ENOXAPARIN SOD 100 MG/1 ML SYRINGE SC SCH ×2 (10:00→22:00)
[2021-04-09] MEDS: HCTZ 25 MG TAB PO SCH (10:00)
[2021-04-09] MEDS: ASPirin 81 mg TAB PO SCH (10:13)
[2021-04-09] MEDS: CLOPIDOGREL BISULFATE 75 MG TAB PO SCH (10:14)
[2021-04-09] MEDS: METOPROLOL SUCCINATE XL 50 MG TAB PO SCH (10:14)
[2021-04-09] MEDS: PANTOPRAZOLE 40 MG TAB PO SCH (10:14)
[2021-04-09] MEDS: LISINOPRIL 20 MG TAB PO SCH (10:15)
[2021-04-09] MEDS ORDERED: ANGIOMAX 250 MG VIAL IV ONE ×2 (12:13→13:45)
[2021-04-09] MEDS ORDERED: SODIUM CHL 0.9% 50 ML ONE ×2 (12:14→13:46)
[2021-04-09] MEDS ORDERED: fentaNYL CITRATE 100 MCG/2 ML VL ONE (12:14)
[2021-04-09] MEDS ORDERED: IODIXANOL 320MG/ML 100ML BTL IV ONE ×4 (12:14→13:39)
[2021-04-09] MEDS ORDERED: MIDAZOLAM HCL 2MG/2ML 2ml VIAL (1mg/ml) ONE (12:14)
[2021-04-09] MEDS ORDERED: LIDOCAINE 2%HCL (LOCAL ANESTH.) INJ 10ml MDV ONE (12:15)
[2021-04-09] MEDS ORDERED: VERAPAMIL 2.5MG/ML INJ 2ML VIAL IV ONE (12:15)
[2021-04-09] MEDS ORDERED: HEPARIN 1,000 UNITS/ml 1ML VIAL ONE (12:17)
[2021-04-09] MEDS: HYDROcodone-ACET 5/325MG TAB PO PRN (20:12)
[2021-04-09] MEDS ORDERED: DOCUSATE SOD 100 MG CAP PO PRN (21:30)
[2021-04-09] MEDS: SODIUM CHLOR 0.9% PF (SALINE LOCK) 10ML VIAL/SYR IV SCH (21:31)
[2021-04-09 23:56] LABS: Urine Bacteria FEW /hpf (None Seen); Urine Blood Negative /uL (Negative); Urine Sperm PRESENT /hpf (None Seen); Urine WBC 31 /hpf (0 - 5); Urine WBC Clumps PRESENT /hpf (None Seen)
[2021-04-09 23:57] LABS: Urine Specific Gravity > 1.050 (1.001-1.035)
[2021-04-10] MEDS: NITROGLYCERIN 0.4 MG SL TAB SL PRN ×3 (04:14→04:31)
[2021-04-10 05:00] VITALS: BP 101/65
[2021-04-10 06:00] LABS: Basophils # (auto) 0 10 ^3/uL (0-0.2); Basophils % (auto) 1.1 % (0.0-2.0); Eosinophils # (auto) 0.2 10 ^3/uL (0-0.8); Eosinophils % (auto) 3.7 % (0.0-7.0); Hematocrit 36.6 % (36.0-46.0); Hemoglobin 11.9 g/dL (12.2-16.2); Lymphocytes # (auto) 1.4 10 ^3/uL (0.4-5.4); Mean Corpuscular Hemoglobin 28.1 pg (28.0-32.0); Mean Corpuscular Hgb Conc. 32.5 g/dL (32.0-36.0); Mean Corpuscular Volume 86.4 fL (80.0-100.0); Monocytes # (auto) 0.8 10 ^3/uL (0-1.3); Neutrophils % (auto) 45.1 % (37.0-80.0); Nucleated Red Blood Cells % 0.1 %; Red Blood Cells 4.24 10^6/uL (4.0-5.20); Red Cell Distribution Width 16.6 % (11.8-14.3); White Blood Cell 4.5 10^3/uL (4.4-10.8)
[2021-04-10] MEDS: ACCU-CHEK COMFORT CURVE STRIP VI SCH ×2 (06:12→12:31)
[2021-04-10] MEDS: SODIUM CHLOR 0.9% PF (SALINE LOCK) 10ML VIAL/SYR IV SCH ×2 (06:12→14:00)
[2021-04-10] MEDS: InsuLIN REG 1unit/0.01ml Soln (100units/ml) SC SCH ×2 (06:12→12:31)
[2021-04-10 06:13] LABS: Monocytes % (auto) 18.1 % (0.0-12.0)
[2021-04-10] MEDS: GABAPENTIN 400 MG CAP PO SCH ×2 (06:17→15:51)
[2021-04-10] MEDS: ACETAMINOPHEN 325 MG TAB PO PRN (06:19)
[2021-04-10 06:27] LABS: BUN/Creatinine Ratio 24.3; Calcium 8.6 mg/dL (8.5-10.1); Potassium 4.6 mmol/L (3.5-5.1)
[2021-04-10 08:00] VITALS: BP 123/65
[2021-04-10 08:38] VITALS: BP 123/65
[2021-04-10] MEDS: ASPirin 81 mg TAB PO SCH (09:21)
[2021-04-10] MEDS: HCTZ 25 MG TAB PO SCH (09:22)
[2021-04-10] MEDS: PANTOPRAZOLE 40 MG TAB PO SCH (09:22)
[2021-04-10] MEDS: CLOPIDOGREL BISULFATE 75 MG TAB PO SCH (09:22)
[2021-04-10] MEDS: ENOXAPARIN SOD 100 MG/1 ML SYRINGE SC SCH (09:23)
[2021-04-10] MEDS: LISINOPRIL 20 MG TAB PO SCH (09:23)
[2021-04-10] MEDS: METOPROLOL SUCCINATE XL 50 MG TAB PO SCH (09:23)
[2021-04-10] MEDS ORDERED: ATOR40TA52 PO (10:19)
[2021-04-10] MEDS ORDERED: NITR0.4S29 SL (12:50)
[2021-04-10 13:00] VITALS: BP 109/61
[2021-04-10 13:39] VITALS: BP 123/65
== END 2021-04-10 16:20 | disposition home or self-care (01) | DRG 246 ==
LOC: ER 17:36 → TELE 20:40 → TELE-WESTW 22:22
PROVIDERS: ADMIT Nurse Practitioner; ATTEND Internal Medicine Pulmonary Disease
PROC: 027137Z Dilation of Coronary Artery, Two Arteries with Four or More Drug-eluting Intraluminal Devices, Percutaneous Approach (ICD-10-PCS; principal; 2021-04-09)
PROC: 02C13Z7 Extirpation of Matter from Coronary Artery, Two Arteries, Orbital Atherectomy Technique, Percutaneous Approach (ICD-10-PCS; 2021-04-09)
PROC: 4A023N7 Measurement of Cardiac Sampling and Pressure, Left Heart, Percutaneous Approach (ICD-10-PCS; 2021-04-09)
PROC: B211YZZ Fluoroscopy of Multiple Coronary Arteries using Other Contrast (ICD-10-PCS; 2021-04-09)
PROC: B215YZZ Fluoroscopy of Left Heart using Other Contrast (ICD-10-PCS; 2021-04-09)
PROC: 4A033BC Measurement of Arterial Pressure, Coronary, Percutaneous Approach (ICD-10-PCS; 2021-04-09)
PROC: B241ZZ3 Ultrasonography of Multiple Coronary Arteries, Intravascular (ICD-10-PCS; 2021-04-09)
DX: I21.4 Non-ST elevation (NSTEMI) myocardial infarction (principal); E44.0 Moderate protein-calorie malnutrition; I13.0 Hypertensive heart and chronic kidney disease with heart failure and stage 1 through stage 4 chronic kidney disease, or unspecified chronic kidney disease; N18.30 Chronic kidney disease, stage 3 unspecified; I25.10 Atherosclerotic heart disease of native coronary artery without angina pectoris; E78.5 Hyperlipidemia, unspecified; E11.22 Type 2 diabetes mellitus with diabetic chronic kidney disease; E66.9 Obesity, unspecified; K21.9 Gastro-esophageal reflux disease without esophagitis; I50.9 Heart failure, unspecified; Z20.822 Contact with and (suspected) exposure to COVID-19; I95.9 Hypotension, unspecified; J44.9 Chronic obstructive pulmonary disease, unspecified; I25.2 Old myocardial infarction; Z79.84 Long term (current) use of oral hypoglycemic drugs; Z68.34 Body mass index [BMI] 34.0-34.9, adult; Z88.5 Allergy status to narcotic agent; Z80.0 Family history of malignant neoplasm of digestive organs; Z83.3 Family history of diabetes mellitus; Z82.49 Family history of ischemic heart disease and other diseases of the circulatory system; Z80.41 Family history of malignant neoplasm of ovary; Z86.73 Personal history of transient ischemic attack (TIA), and cerebral infarction without residual deficits; Z90.710 Acquired absence of both cervix and uterus
CPT/HCPCS: 36415; 71045; 80048; 80053; 81001; 82962; 83735; 83880; 84484; 85007; 85025; 85027; 85610; 85730; 87426; 92929; 92933; 92978; 93005; 93306; 93458; 93571; 96372; 96374; 99152; 99153; C1724; C1769; C1874; G0378; J1815; J2001; J2250; J2405; Q9967

== ENCOUNTER → 2021-05-05 | Outpatient (CLI) | payer OTHER, MEDICAID ==
[~2021-05-05] MED LIST changes: +ATOR40TA52 PO; -DOXY-286 PO; +HYDR25TA5 PO; -METH4PAK PO; +NITR0.4S29 SL; +PANT40T PO
[2021-05-05 08:25] LABS: Urine Bacteria FEW /hpf (None Seen); Urine Blood Negative /uL (Negative); Urine Specific Gravity 1.022 (1.001-1.035); Urine WBC 9 /hpf (0 - 5)
[2021-05-05 08:53] LABS: BUN/Creatinine Ratio 25.5; Potassium 4.5 mmol/L (3.5-5.1)
[2021-05-05 09:05] LABS: Protein, Urine 10.3 mg/dL (0.0-11.9)
[2021-05-05 09:16] LABS: Micro Albumin 13.7 mg/L (0-30.0)
== END | disposition home or self-care (01) ==
LOC: LAB 07:05
PROVIDERS: ATTEND Internal Medicine Nephrology
DX: E11.9 Type 2 diabetes mellitus without complications (principal); I10 Essential (primary) hypertension
CPT/HCPCS: 36415; 80048; 81001; 82043; 82570; 84156

== ENCOUNTER 2021-09-18 16:06 | Emergency (ER) | payer OTHER, MEDICAID ==
[~2021-09-18] VITALS: Ht 170.2 cm; Wt 95.0 kg
[2021-09-18 16:36] VITALS: BP 121/75
== END 2021-09-19 00:53 | disposition home or self-care (01) ==
LOC: ER 16:06
DX: I96 Gangrene, not elsewhere classified (principal); J44.9 Chronic obstructive pulmonary disease, unspecified; I25.2 Old myocardial infarction; I13.0 Hypertensive heart and chronic kidney disease with heart failure and stage 1 through stage 4 chronic kidney disease, or unspecified chronic kidney disease; E11.22 Type 2 diabetes mellitus with diabetic chronic kidney disease; N18.9 Chronic kidney disease, unspecified; I50.9 Heart failure, unspecified; Z90.710 Acquired absence of both cervix and uterus; Z98.61 Coronary angioplasty status; Z79.899 Other long term (current) drug therapy; Z88.6 Allergy status to analgesic agent
CPT/HCPCS: 73630

== ENCOUNTER → 2021-10-03 | Outpatient (CLI) | payer OTHER, MEDICAID ==
[~2021-10-03] MED LIST changes: +LISI20TA28 PO
[2021-10-03 09:23] LABS: Calcium 9.5 mg/dL (8.5-10.1); Potassium 4.9 mmol/L (3.5-5.1)
[2021-10-03 09:30] LABS: Albumin 2.8 g/dL (3.4-5.0); BUN/Creatinine Ratio 18.6; Bilirubin, Total 0.4 mg/dL (0.2-1.0); Total Protein 7.6 g/dL (6.4-8.2)
== END | disposition home or self-care (01) ==
LOC: LAB 08:44
PROVIDERS: ATTEND Internal Medicine
DX: I10 Essential (primary) hypertension (principal)
CPT/HCPCS: 36415; 80053; 80061

== ENCOUNTER 2021-10-06 20:56 | Inpatient (IN) | payer OTHER, MEDICAID ==
[~2021-10-06] VITALS: Ht 170.2 cm; Wt 95.9 kg
[~2021-10-06 20:56] MED LIST changes: -LISI20TA28 PO
[2021-10-06] MEDS ORDERED: MORPHINE SULFATE INJ 2 MG/ml SYRG IV PRN (23:15)
[2021-10-06] MEDS ORDERED: NITROGLYCERIN 0.4 MG SL TAB SL PRN (23:15)
[2021-10-06 23:54] LABS: Basophils # (auto) 0.1 10 ^3/uL (0-0.2); Nucleated Red Blood Cells % 0.1 %
[2021-10-06 23:55] LABS: Basophils % (auto) 0.6 % (0.0-2.0); Eosinophils # (auto) 0.1 10 ^3/uL (0-0.8); Eosinophils % (auto) 0.5 % (0.0-7.0); Hematocrit 34.1 % (36.0-46.0); Hemoglobin 11.2 g/dL (12.2-16.2); Lymphocytes # (auto) 1.6 10 ^3/uL (0.4-5.4); Lymphocytes % (auto) 12.7 % (10.0-50.0); Mean Corpuscular Hemoglobin 28.5 pg (28.0-32.0); Mean Corpuscular Hgb Conc. 32.8 g/dL (32.0-36.0); Monocytes # (auto) 1.1 10 ^3/uL (0-1.3); Monocytes % (auto) 8.8 % (0.0-12.0); Neutrophils % (auto) 77.4 % (37.0-80.0); Red Blood Cells 3.92 10^6/uL (4.0-5.20); Red Cell Distribution Width 14.9 % (11.8-14.3); White Blood Cell 12.9 10^3/uL (4.4-10.8)
[2021-10-07 00:03] LABS: Albumin 2.7 g/dL (3.4-5.0); BUN/Creatinine Ratio 22.2; Calcium 9.3 mg/dL (8.5-10.1); Potassium 4.2 mmol/L (3.5-5.1)
[2021-10-07 00:05] LABS: Bilirubin, Total 0.3 mg/dL (0.2-1.0); Total Protein 7.5 g/dL (6.4-8.2)
[2021-10-07] MEDS ORDERED: ACCU-CHEK COMFORT CURVE STRIP VI ONE (00:45)
[2021-10-07] MEDS ORDERED: DEXTROSE (50%) 50ML SYRG IV PRN ×2 (00:45→15:00)
[2021-10-07] MEDS: HYDROcodone-ACET 5/325MG TAB PO PRN ×4 (01:33→20:10)
[2021-10-07] MEDS ORDERED: InsuLIN REG 1unit/0.01ml Soln (100units/ml) SC SCH ×4 (04:00→22:00)
[2021-10-07 05:00] VITALS: BP 104/97
[2021-10-07] MEDS ORDERED: LISI20TA28 PO (05:08)
[2021-10-07] MEDS: InsuLIN REG 1unit/0.01ml Soln (100units/ml) SC SCH ×3 (06:25→18:16)
[2021-10-07] MEDS ORDERED: ACCU-CHEK COMFORT CURVE STRIP VI SCH (07:00)
[2021-10-07 08:00] VITALS: BP 117/76
[2021-10-07] MEDS ORDERED: ENOXAPARIN SOD 40 MG/0.4 ML SYRINGE SC SCH (10:00)
[2021-10-07] MEDS: ASPirin 81 mg TAB PO SCH (11:02)
[2021-10-07] MEDS: CLOPIDOGREL BISULFATE 75 MG TAB PO SCH (11:02)
[2021-10-07 11:48] LABS: Urine Bacteria FEW /hpf (None Seen); Urine Blood Negative /uL (Negative); Urine Budding Yeast MANY /hpf (None Seen); Urine Specific Gravity 1.025 (1.001-1.035); Urine WBC <1 /hpf (0 - 5)
[2021-10-07] MEDS: SODIUM CHLORIDE 0.9% 1,000 ML IV SCH ×2 (12:59→22:45)
[2021-10-07 13:00] VITALS: BP 141/90
[2021-10-07] MEDS ORDERED: ONDANSETRON HCL 4 MG/2 ML VIAL IV PRN (15:00)
[2021-10-07] MEDS ORDERED: ACETAMINOPHEN 500 MG TAB PO PRN ×2 (15:00→15:15)
[2021-10-07] MEDS ORDERED: PIPERACILLIN-TAZOB 3.375GM 100 ML IV ONE (15:00)
[2021-10-07] MEDS ORDERED: MORPHINE SULFATE INJ 2 MG/ml SYRG IV PRN (15:00)
[2021-10-07] MEDS: DOXYCYCLINE 100MG/250ML 250 ML IV SCH (16:16)
[2021-10-07] MEDS: HYDROmorphone HCL 2 MG/ML VL/or syr IV PRN ×2 (16:53→22:47)
[2021-10-07 17:00] VITALS: BP 156/90
[2021-10-07] MEDS: ACCU-CHEK COMFORT CURVE STRIP VI SCH (18:23)
[2021-10-07 20:00] VITALS: BP 133/86
[2021-10-07 22:00] VITALS: BP 133/86
[2021-10-07] MEDS: ATORVASTATIN 20 MG TAB PO SCH (22:41)
[2021-10-07] MEDS: GABAPENTIN 300 MG CAP PO SCH (22:41)
[2021-10-07] MEDS: PIPERACILLIN-TAZOB 3.375GM 100 ML IV SCH (22:42)
[2021-10-08] VITALS (13 sets, daily range): BP systolic 113–157; BP diastolic 57–105
[2021-10-08] MEDS: ACCU-CHEK COMFORT CURVE STRIP VI SCH ×4 (00:19→18:40)
[2021-10-08] MEDS: InsuLIN REG 1unit/0.01ml Soln (100units/ml) SC SCH ×4 (00:20→18:44)
[2021-10-08] MEDS: DOXYCYCLINE 100MG/250ML 250 ML IV SCH ×2 (03:20→15:00)
[2021-10-08 03:29] LABS: INR 1.07 (0.9-1.15); Partial Thromboplastin Time 39.6 sec (24.6-33.4)
[2021-10-08] MEDS: PIPERACILLIN-TAZOB 3.375GM 100 ML IV SCH ×3 (06:01→22:59)
[2021-10-08] MEDS: HYDROmorphone HCL 2 MG/ML VL/or syr IV PRN ×4 (06:02→20:53)
[2021-10-08 06:42] LABS: Eosinophils # (auto) 0.1 10 ^3/uL (0-0.8); Monocytes # (auto) 0.8 10 ^3/uL (0-1.3); Red Cell Distribution Width 14.5 % (11.8-14.3)
[2021-10-08 06:44] LABS: Basophils # (auto) 0.1 10 ^3/uL (0-0.2); Basophils % (auto) 0.7 % (0.0-2.0); Eosinophils % (auto) 1.6 % (0.0-7.0); Hematocrit 36.3 % (36.0-46.0); Hemoglobin 11.6 g/dL (12.2-16.2); Lymphocytes # (auto) 1.4 10 ^3/uL (0.4-5.4); Lymphocytes % (auto) 16.1 % (10.0-50.0); Mean Corpuscular Hemoglobin 28.1 pg (28.0-32.0); Mean Corpuscular Volume 87.7 fL (80.0-100.0); Monocytes % (auto) 9.2 % (0.0-12.0); Neutrophils # (auto) 6.2 10 ^3/uL (1.6-8.6); Neutrophils % (auto) 72.4 % (37.0-80.0); Red Blood Cells 4.14 10^6/uL (4.0-5.20); White Blood Cell 8.6 10^3/uL (4.4-10.8)
[2021-10-08 06:59] LABS: Potassium 3.7 mmol/L (3.5-5.1)
[2021-10-08 07:06] LABS: Albumin 2.6 g/dL (3.4-5.0); BUN/Creatinine Ratio 22.3; Calcium 9.2 mg/dL (8.5-10.1)
[2021-10-08 07:09] LABS: Bilirubin, Total 0.5 mg/dL (0.2-1.0); Total Protein 7.3 g/dL (6.4-8.2)
[2021-10-08 07:27] LABS: INR 1.09 (0.9-1.15); Partial Thromboplastin Time 39.9 sec (24.6-33.4)
[2021-10-08] MEDS: GABAPENTIN 300 MG CAP PO SCH ×2 (10:00→22:58)
[2021-10-08] MEDS: CLOPIDOGREL BISULFATE 75 MG TAB PO SCH ×2 (10:00→15:42)
[2021-10-08] MEDS: ASPirin 81 mg TAB PO SCH (10:00)
[2021-10-08] MEDS: SODIUM CHLORIDE 0.9% 1,000 ML IV SCH (10:55)
[2021-10-08] MEDS ORDERED: fentaNYL CITRATE 100 MCG/2 ML VL ONE (12:31)
[2021-10-08] MEDS ORDERED: ANGIOMAX 250 MG VIAL IV ONE ×2 (12:31→13:47)
[2021-10-08] MEDS ORDERED: MIDAZOLAM HCL 2MG/2ML 2ml VIAL (1mg/ml) ONE (12:32)
[2021-10-08] MEDS ORDERED: IOHEXOL 350 MG/ML 100ML IJ ONE ×4 (12:32→14:26)
[2021-10-08] MEDS ORDERED: LIDOCAINE 2%HCL (LOCAL ANESTH.) INJ 20ML MDV ONE (12:32)
[2021-10-08] MEDS ORDERED: SODIUM CHL 0.9% 50 ML ONE ×2 (12:32→13:47)
[2021-10-08] MEDS ORDERED: diphenhdrAMINE HCL 50 MG/1 ML VL ONE (13:54)
[2021-10-08] MEDS ORDERED: CLOPIDOGREL BISULFATE 75 MG TAB PO ONE (15:45)
[2021-10-08] MEDS: RIVAROXABAN 10 MG TAB PO SCH (22:58)
[2021-10-08] MEDS: ATORVASTATIN 20 MG TAB PO SCH (22:59)
[2021-10-09] MEDS: ACCU-CHEK COMFORT CURVE STRIP VI SCH ×5 (00:12→23:47)
[2021-10-09] MEDS: SODIUM CHLORIDE 0.9% 1,000 ML IV SCH ×2 (00:12→13:35)
[2021-10-09] MEDS: InsuLIN REG 1unit/0.01ml Soln (100units/ml) SC SCH ×5 (00:13→23:48)
[2021-10-09] MEDS: HYDROcodone-ACET 5/325MG TAB PO PRN ×4 (00:28→22:19)
[2021-10-09] MEDS: DOXYCYCLINE 100MG/250ML 250 ML IV SCH ×2 (02:36→12:50)
[2021-10-09 05:05] VITALS: BP 141/76
[2021-10-09] MEDS: PIPERACILLIN-TAZOB 3.375GM 100 ML IV SCH ×3 (05:45→21:52)
[2021-10-09 06:32] LABS: Basophils # (auto) 0.1 10 ^3/uL (0-0.2); Eosinophils # (auto) 0 10 ^3/uL (0-0.8); Hemoglobin 11.9 g/dL (12.2-16.2); Lymphocytes # (auto) 1.7 10 ^3/uL (0.4-5.4); Mean Corpuscular Hemoglobin 28.4 pg (28.0-32.0)
[2021-10-09 06:33] LABS: Basophils % (auto) 0.5 % (0.0-2.0); Eosinophils % (auto) 0.3 % (0.0-7.0); Hematocrit 37.3 % (36.0-46.0); Mean Corpuscular Volume 88.8 fL (80.0-100.0); Monocytes % (auto) 8.6 % (0.0-12.0); Neutrophils # (auto) 8.6 10 ^3/uL (1.6-8.6); Neutrophils % (auto) 75.6 % (37.0-80.0); Nucleated Red Blood Cells % 0.1 %; White Blood Cell 11.3 10^3/uL (4.4-10.8)
[2021-10-09 06:49] LABS: BUN/Creatinine Ratio 20.6; Calcium 9.3 mg/dL (8.5-10.1); Potassium 4.5 mmol/L (3.5-5.1)
[2021-10-09] MEDS: CLOPIDOGREL BISULFATE 75 MG TAB PO SCH (08:46)
[2021-10-09] MEDS: RIVAROXABAN 10 MG TAB PO SCH (08:46)
[2021-10-09] MEDS: GABAPENTIN 300 MG CAP PO SCH ×2 (08:47→21:48)
[2021-10-09] MEDS: ASPirin 81 mg TAB PO SCH (08:48)
[2021-10-09 09:00] VITALS: BP 148/86
[2021-10-09 13:00] VITALS: BP_SYST 131; BP_SYST 149; BP_DIAS 104; BP_DIAS 64
[2021-10-09 17:00] VITALS: BP 121/78
[2021-10-09] MEDS: ATORVASTATIN 20 MG TAB PO SCH (21:48)
[2021-10-09 22:00] VITALS: BP 133/70
[2021-10-10] MEDS: SODIUM CHLORIDE 0.9% 1,000 ML IV SCH ×2 (02:55→16:15)
[2021-10-10] MEDS: DOXYCYCLINE 100MG/250ML 250 ML IV SCH ×2 (03:06→15:00)
[2021-10-10 05:02] VITALS: BP 146/91
[2021-10-10] MEDS: InsuLIN REG 1unit/0.01ml Soln (100units/ml) SC SCH ×4 (06:00→23:42)
[2021-10-10] MEDS: ACCU-CHEK COMFORT CURVE STRIP VI SCH ×3 (06:30→18:00)
[2021-10-10] MEDS: PIPERACILLIN-TAZOB 3.375GM 100 ML IV SCH ×3 (06:40→21:57)
[2021-10-10] MEDS ORDERED: ROPIVACAINE 0.5% (5MG/ML) 20ML AMPULE IJ ONE (07:13)
[2021-10-10] MEDS ORDERED: fentaNYL CITRATE 100 MCG/2 ML VL ONE (07:23)
[2021-10-10] MEDS ORDERED: MIDAZOLAM HCL 2MG/2ML 2ml VIAL (1mg/ml) ONE (07:23)
[2021-10-10] MEDS ORDERED: KETAMINE HCL 10 ML ONE (07:23)
[2021-10-10] MEDS ORDERED: PROPOFOL 10 MG/ML 20 ML IV ONE (07:24)
[2021-10-10] MEDS ORDERED: GLYCOPYRROLATE 0.2 MG/ML 1ML VIAL ONE (07:24)
[2021-10-10] MEDS ORDERED: ONDANSETRON HCL 4 MG/2 ML VIAL ONE (07:24)
[2021-10-10] MEDS ORDERED: LIDOCAINE 2% (LOCAL ANESTH.) PF 5ml SDV ONE (08:12)
[2021-10-10] MEDS: HYDROmorphone HCL 2 MG/ML VL/or syr IV PRN ×6 (08:55→22:02)
[2021-10-10] MEDS ORDERED: ACCU-CHEK COMFORT CURVE STRIP VI ONE (09:00)
[2021-10-10] MEDS ORDERED: ONDANSETRON HCL 4 MG/2 ML VIAL IV PRN (09:00)
[2021-10-10] MEDS: CLOPIDOGREL BISULFATE 75 MG TAB PO SCH (10:48)
[2021-10-10] MEDS: ASPirin 81 mg TAB PO SCH (10:49)
[2021-10-10] MEDS: GABAPENTIN 300 MG CAP PO SCH ×2 (10:49→21:58)
[2021-10-10 12:58] VITALS: BP 112/81
[2021-10-10] MEDS: HYDROcodone-ACET 5/325MG TAB PO PRN ×2 (13:30→20:32)
[2021-10-10 16:31] VITALS: BP 121/68
[2021-10-10] MEDS: RIVAROXABAN 10 MG TAB PO SCH (21:58)
[2021-10-10] MEDS: ATORVASTATIN 20 MG TAB PO SCH (21:58)
[2021-10-10 22:00] VITALS: BP 150/77
[2021-10-11] MEDS: ACCU-CHEK COMFORT CURVE STRIP VI SCH ×5 (00:34→23:30)
[2021-10-11] MEDS: DOXYCYCLINE 100MG/250ML 250 ML IV SCH ×2 (02:40→15:00)
[2021-10-11] MEDS: HYDROmorphone HCL 2 MG/ML VL/or syr IV PRN ×2 (02:40→15:23)
[2021-10-11 05:00] VITALS: BP 138/78
[2021-10-11] MEDS: SODIUM CHLORIDE 0.9% 1,000 ML IV SCH (05:35)
[2021-10-11] MEDS: PIPERACILLIN-TAZOB 3.375GM 100 ML IV SCH ×3 (06:11→21:37)
[2021-10-11] MEDS: InsuLIN REG 1unit/0.01ml Soln (100units/ml) SC SCH ×4 (06:13→23:34)
[2021-10-11 07:33] LABS: Basophils # (auto) 0.1 10 ^3/uL (0-0.2); Eosinophils # (auto) 0 10 ^3/uL (0-0.8); Eosinophils % (auto) 0.3 % (0.0-7.0); Hematocrit 36.2 % (36.0-46.0); Lymphocytes # (auto) 1.9 10 ^3/uL (0.4-5.4); Neutrophils # (auto) 9.8 10 ^3/uL (1.6-8.6); Neutrophils % (auto) 74.9 % (37.0-80.0); White Blood Cell 13.1 10^3/uL (4.4-10.8)
[2021-10-11 07:37] LABS: Basophils % (auto) 0.9 % (0.0-2.0); Hemoglobin 11.3 g/dL (12.2-16.2); Lymphocytes % (auto) 14.6 % (10.0-50.0); Mean Corpuscular Hemoglobin 27.4 pg (28.0-32.0); Mean Corpuscular Hgb Conc. 31.1 g/dL (32.0-36.0); Mean Corpuscular Volume 88.2 fL (80.0-100.0); Monocytes # (auto) 1.2 10 ^3/uL (0-1.3); Monocytes % (auto) 9.3 % (0.0-12.0); Red Cell Distribution Width 14.8 % (11.8-14.3)
[2021-10-11 07:48] LABS: Albumin 2.3 g/dL (3.4-5.0); Potassium 4.2 mmol/L (3.5-5.1)
[2021-10-11 07:53] LABS: Bilirubin, Total 0.5 mg/dL (0.2-1.0); Total Protein 7.4 g/dL (6.4-8.2)
[2021-10-11 08:39] VITALS: BP 130/75
[2021-10-11] MEDS: GABAPENTIN 300 MG CAP PO SCH ×2 (10:54→21:37)
[2021-10-11] MEDS: CLOPIDOGREL BISULFATE 75 MG TAB PO SCH (10:56)
[2021-10-11] MEDS: RIVAROXABAN 10 MG TAB PO SCH ×2 (10:56→21:38)
[2021-10-11] MEDS: HYDROcodone-ACET 5/325MG TAB PO PRN ×2 (10:57→17:05)
[2021-10-11 12:29] VITALS: BP 142/85
[2021-10-11 17:00] VITALS: BP 117/84
[2021-10-11] MEDS ORDERED: LACTULOSE 20Gm/30ML SOLN PO ONE (19:00)
[2021-10-11] MEDS ORDERED: DOCUSATE SOD 100 MG CAP PO ONE (19:00)
[2021-10-11] MEDS: ATORVASTATIN 20 MG TAB PO SCH (21:37)
[2021-10-11 22:00] VITALS: BP 110/60
[2021-10-12] MEDS: HYDROcodone-ACET 5/325MG TAB PO PRN ×5 (00:42→21:47)
[2021-10-12] MEDS: DOXYCYCLINE 100MG/250ML 250 ML IV SCH ×2 (03:11→15:00)
[2021-10-12 05:00] VITALS: BP_SYST 113; BP_SYST 114; BP_DIAS 56; BP_DIAS 70
[2021-10-12] MEDS: ACCU-CHEK COMFORT CURVE STRIP VI SCH ×3 (07:02→17:41)
[2021-10-12] MEDS: InsuLIN REG 1unit/0.01ml Soln (100units/ml) SC SCH ×3 (07:06→17:39)
[2021-10-12 09:00] VITALS: BP 135/86
[2021-10-12] MEDS: PIPERACILLIN-TAZOB 3.375GM 100 ML IV SCH ×3 (09:54→22:33)
[2021-10-12] MEDS: RIVAROXABAN 10 MG TAB PO SCH ×2 (10:12→21:47)
[2021-10-12] MEDS: LACTULOSE 20Gm/30ML SOLN PO SCH ×2 (10:12→21:51)
[2021-10-12] MEDS: GABAPENTIN 300 MG CAP PO SCH ×2 (10:32→21:47)
[2021-10-12] MEDS: DOCUSATE SOD 100 MG CAP PO SCH ×2 (10:32→21:51)
[2021-10-12] MEDS: CLOPIDOGREL BISULFATE 75 MG TAB PO SCH (10:33)
[2021-10-12 13:00] VITALS: BP 105/59
[2021-10-12 16:54] VITALS: BP 137/69
[2021-10-12 22:00] VITALS: BP 95/57
[2021-10-12] MEDS: ATORVASTATIN 20 MG TAB PO SCH (22:47)
[2021-10-13] MEDS: ACCU-CHEK COMFORT CURVE STRIP VI SCH ×4 (00:59→18:00)
[2021-10-13] MEDS: InsuLIN REG 1unit/0.01ml Soln (100units/ml) SC SCH ×4 (01:23→18:00)
[2021-10-13] MEDS: DOXYCYCLINE 100MG/250ML 250 ML IV SCH ×2 (02:58→15:00)
[2021-10-13 05:00] VITALS: BP 119/61
[2021-10-13] MEDS: PIPERACILLIN-TAZOB 3.375GM 100 ML IV SCH ×3 (05:29→22:16)
[2021-10-13] MEDS: HYDROcodone-ACET 5/325MG TAB PO PRN ×2 (07:14→18:45)
[2021-10-13 08:39] VITALS: BP 117/63
[2021-10-13] MEDS: LACTULOSE 20Gm/30ML SOLN PO SCH ×2 (10:00→22:00)
[2021-10-13] MEDS: GABAPENTIN 300 MG CAP PO SCH ×2 (10:08→22:16)
[2021-10-13] MEDS: DOCUSATE SOD 100 MG CAP PO SCH ×2 (10:08→22:00)
[2021-10-13] MEDS: RIVAROXABAN 10 MG TAB PO SCH ×2 (10:08→22:16)
[2021-10-13] MEDS: CLOPIDOGREL BISULFATE 75 MG TAB PO SCH (10:09)
[2021-10-13 13:31] VITALS: BP 115/72
[2021-10-13 16:28] VITALS: BP 122/87
[2021-10-13] MEDS ORDERED: PANTOPRAZOLE 40 MG TAB PO ONE (18:00)
[2021-10-13 21:54] VITALS: BP 122/75
[2021-10-13] MEDS: ATORVASTATIN 20 MG TAB PO SCH (22:00)
[2021-10-14] MEDS: ACCU-CHEK COMFORT CURVE STRIP VI SCH ×4 (01:09→17:54)
[2021-10-14] MEDS: InsuLIN REG 1unit/0.01ml Soln (100units/ml) SC SCH ×4 (01:09→17:56)
[2021-10-14] MEDS: DOXYCYCLINE 100MG/250ML 250 ML IV SCH ×2 (02:29→15:47)
[2021-10-14 05:08] VITALS: BP 135/76
[2021-10-14] MEDS: PIPERACILLIN-TAZOB 3.375GM 100 ML IV SCH ×2 (05:39→13:57)
[2021-10-14 08:43] LABS: Basophils # (auto) 0.1 10 ^3/uL (0-0.2); Eosinophils # (auto) 0.1 10 ^3/uL (0-0.8); Hemoglobin 10.7 g/dL (12.2-16.2); Monocytes # (auto) 0.7 10 ^3/uL (0-1.3); Nucleated Red Blood Cells % 0.1 %; Red Cell Distribution Width 14.5 % (11.8-14.3)
[2021-10-14 08:44] LABS: Eosinophils % (auto) 0.9 % (0.0-7.0); Hematocrit 33.3 % (36.0-46.0); Lymphocytes # (auto) 1.7 10 ^3/uL (0.4-5.4); Lymphocytes % (auto) 17.6 % (10.0-50.0); Mean Corpuscular Hemoglobin 27.7 pg (28.0-32.0); Mean Corpuscular Hgb Conc. 32.1 g/dL (32.0-36.0); Mean Corpuscular Volume 86.3 fL (80.0-100.0); Monocytes % (auto) 7.5 % (0.0-12.0); Neutrophils # (auto) 6.9 10 ^3/uL (1.6-8.6); Red Blood Cells 3.86 10^6/uL (4.0-5.20); White Blood Cell 9.4 10^3/uL (4.4-10.8)
[2021-10-14 09:00] VITALS: BP 119/65
[2021-10-14] MEDS: LACTULOSE 20Gm/30ML SOLN PO SCH ×2 (09:05→21:47)
[2021-10-14] MEDS: CLOPIDOGREL BISULFATE 75 MG TAB PO SCH (09:06)
[2021-10-14] MEDS: GABAPENTIN 300 MG CAP PO SCH ×2 (09:06→21:46)
[2021-10-14] MEDS: DOCUSATE SOD 100 MG CAP PO SCH ×2 (09:06→21:47)
[2021-10-14] MEDS: PANTOPRAZOLE 40 MG TAB PO SCH (09:06)
[2021-10-14] MEDS: RIVAROXABAN 10 MG TAB PO SCH ×2 (09:07→21:46)
[2021-10-14] MEDS: HYDROcodone-ACET 10/325MG TAB PO PRN ×3 (09:08→21:46)
[2021-10-14 12:00] VITALS: BP 123/76
[2021-10-14] MEDS ORDERED: VANCOMYCIN PER PHARMACY 0 MG IV SCH (14:45)
[2021-10-14 16:00] VITALS: BP 136/68
[2021-10-14] MEDS ORDERED: VANCOMYCIN 1GM/250ML 250 ML IV ONE (16:00)
[2021-10-14 17:10] LABS: INR 1.52 (0.9-1.15); Partial Thromboplastin Time 54.9 sec (24.6-33.4)
[2021-10-14] MEDS: ATORVASTATIN 20 MG TAB PO SCH (21:43)
[2021-10-14 22:06] VITALS: BP 115/70
[2021-10-15] MEDS: ACCU-CHEK COMFORT CURVE STRIP VI SCH ×4 (00:04→17:10)
[2021-10-15] MEDS: InsuLIN REG 1unit/0.01ml Soln (100units/ml) SC SCH ×4 (00:05→17:08)
[2021-10-15] MEDS: DOXYCYCLINE 100MG/250ML 250 ML IV SCH ×2 (03:20→14:50)
[2021-10-15 05:11] VITALS: BP 110/53
[2021-10-15 06:34] LABS: Anion Gap 9 (5-15); BUN/Creatinine Ratio 22.6; Blood Urea Nitrogen 19 mg/dL (7-18); Calcium 8.3 mg/dL (8.5-10.1); Carbon Dioxide 24 mmol/L (21-32); Chloride 102 mmol/L (98-107); GFR African American 84 mL/min; GFR Non-African American 70 mL/min; Glucose 134 mg/dL (74-106); Potassium 3.9 mmol/L (3.5-5.1); Sodium 135 mmol/L (136-145)
[2021-10-15] MEDS: HYDROcodone-ACET 10/325MG TAB PO PRN ×3 (06:39→18:36)
[2021-10-15] MEDS ORDERED: VANCOMYCIN 1GM/250ML 250 ML IV SCH (08:00)
[2021-10-15 09:00] VITALS: BP 124/60
[2021-10-15] MEDS: GABAPENTIN 300 MG CAP PO SCH (10:17)
[2021-10-15] MEDS: LACTULOSE 20Gm/30ML SOLN PO SCH (10:17)
[2021-10-15] MEDS: PANTOPRAZOLE 40 MG TAB PO SCH (10:17)
[2021-10-15] MEDS: CLOPIDOGREL BISULFATE 75 MG TAB PO SCH (10:17)
[2021-10-15] MEDS: DOCUSATE SOD 100 MG CAP PO SCH (10:17)
[2021-10-15] MEDS: RIVAROXABAN 10 MG TAB PO SCH (10:18)
[2021-10-15] MEDS ORDERED: LIDOCAINE 1% (LOCAL ANESTH.) PF 5ml SDV ID ONE (10:45)
[2021-10-15 13:00] VITALS: BP 134/79
[2021-10-15 17:00] VITALS: BP 127/73
[2021-10-15 17:26] VITALS: BP 127/73
[2021-10-15] MEDS ORDERED: SODIUM CHLOR 0.9% PF (SALINE LOCK) 10ML VIAL/SYR IV SCH (22:00)
== END 2021-10-15 20:15 | DRG 853 ==
LOC: TELE-WESTW 21:16 → UNDOADMIN 21:16 → TELE-WESTW 23:15 → WEST WING 10-14 23:27
PROVIDERS: ADMIT Internal Medicine; ATTEND Internal Medicine
PROC: B41G1ZZ Fluoroscopy of Left Lower Extremity Arteries using Low Osmolar Contrast (ICD-10-PCS; principal; 2021-10-08)
PROC: 047L3EZ Dilation of Left Femoral Artery with Two Intraluminal Devices, Percutaneous Approach (ICD-10-PCS; 2021-10-08)
PROC: B41F1ZZ Fluoroscopy of Right Lower Extremity Arteries using Low Osmolar Contrast (ICD-10-PCS; 2021-10-08)
PROC: 0Y6N0Z9 Detachment at Left Foot, Partial 1st Ray, Open Approach (ICD-10-PCS; 2021-10-10)
PROC: 0Y6N0ZB Detachment at Left Foot, Partial 2nd Ray, Open Approach (ICD-10-PCS; 2021-10-10)
PROC: 02HV33Z Insertion of Infusion Device into Superior Vena Cava, Percutaneous Approach (ICD-10-PCS; 2021-10-15)
PROC: B548ZZA Ultrasonography of Superior Vena Cava, Guidance (ICD-10-PCS; 2021-10-15)
DX: A41.81 Sepsis due to Enterococcus (principal); N17.0 Acute kidney failure with tubular necrosis; I70.262 Atherosclerosis of native arteries of extremities with gangrene, left leg; E11.52 Type 2 diabetes mellitus with diabetic peripheral angiopathy with gangrene; Z20.822 Contact with and (suspected) exposure to COVID-19; I25.10 Atherosclerotic heart disease of native coronary artery without angina pectoris; J44.9 Chronic obstructive pulmonary disease, unspecified; I10 Essential (primary) hypertension; K21.9 Gastro-esophageal reflux disease without esophagitis; K59.00 Constipation, unspecified; E78.5 Hyperlipidemia, unspecified; E66.9 Obesity, unspecified; Z79.4 Long term (current) use of insulin; Z80.0 Family history of malignant neoplasm of digestive organs; Z80.41 Family history of malignant neoplasm of ovary; Z82.49 Family history of ischemic heart disease and other diseases of the circulatory system; Z83.3 Family history of diabetes mellitus; Z86.73 Personal history of transient ischemic attack (TIA), and cerebral infarction without residual deficits; Z95.5 Presence of coronary angioplasty implant and graft; Z68.33 Body mass index [BMI] 33.0-33.9, adult
CPT/HCPCS: 36415; 36569; 37226; 71045; 73630; 73700; 80048; 80053; 81001; 82565; 82962; 83036; 83735; 83880; 84132; 84484; 85025; 85610; 85730; 86850; 86900; 86901; 87040; 87070; 87075; 87076; 87077; 87186; 87205; 93005; 93886; 93925; 97110; 97163; 97530; 99152; 99153; G0378; J1815; J2001; J2250; J2405; J2543; J2704; J3490

== ENCOUNTER → 2021-10-30 | Outpatient (CLI) | payer OTHER, MEDICAID ==
[~2021-10-30] MED LIST changes: -AMLO-496 PO; +LISI20TA28 PO; -LISI40TA11 PO
== END | disposition home or self-care (01) ==
LOC: LAB 07:06
PROVIDERS: ATTEND Podiatrist
DX: E11.641 Type 2 diabetes mellitus with hypoglycemia with coma (principal)
CPT/HCPCS: 87075; 87205

== ENCOUNTER → 2021-11-05 | Day surgery (SDC) | payer OTHER, MEDICAID ==
[2021-11-04 14:18] LABS: Basophils # (auto) 0.1 10 ^3/uL (0-0.2); Basophils % (auto) 1.5 % (0.0-2.0); Eosinophils # (auto) 0.2 10 ^3/uL (0-0.8); Eosinophils % (auto) 3.8 % (0.0-7.0); Hematocrit 31.1 % (36.0-46.0); Hemoglobin 9.7 g/dL (12.2-16.2); Lymphocytes # (auto) 1.6 10 ^3/uL (0.4-5.4); Lymphocytes % (auto) 33.4 % (10.0-50.0); Mean Corpuscular Hemoglobin 26.8 pg (28.0-32.0); Mean Corpuscular Hgb Conc. 31.3 g/dL (32.0-36.0); Mean Corpuscular Volume 85.4 fL (80.0-100.0); Monocytes # (auto) 0.5 10 ^3/uL (0-1.3); Monocytes % (auto) 10.9 % (0.0-12.0); Neutrophils # (auto) 2.5 10 ^3/uL (1.6-8.6); Neutrophils % (auto) 50.4 % (37.0-80.0); Nucleated Red Blood Cells % 0.1 %; Red Blood Cells 3.63 10^6/uL (4.0-5.20); Red Cell Distribution Width 15.2 % (11.8-14.3); White Blood Cell 4.9 10^3/uL (4.4-10.8)
[2021-11-04 14:39] LABS: INR 1.2 (0.9-1.15); Partial Thromboplastin Time 40.2 sec (24.6-33.4)
[2021-11-04 14:42] LABS: Albumin 2.3 g/dL (3.4-5.0); Calcium 7.9 mg/dL (8.5-10.1); Potassium 3.5 mmol/L (3.5-5.1)
[2021-11-04 14:46] LABS: BUN/Creatinine Ratio 10.7; Bilirubin, Total 0.4 mg/dL (0.2-1.0); Total Protein 5.9 g/dL (6.4-8.2)
[~2021-11-05] VITALS: Ht 170.2 cm; Wt 95.3 kg
[~2021-11-05] MED LIST changes: +DAKINS QUARTER STR 0.125% (NaHypochlorite) 473 ML TOPICAL SOL TOP ONE; +DexAMETHasone SOD PHOS 10MG/1ML VIAL INJ ONE; -HYDR25TA5 PO; +HYDROmorphone HCL 2 MG/ML VL/or syr IV PRN; +LIDOCAINE 1%HCL (LOCAL ANESTH) 10 ML MDV ONE; +MEPERIDINE HCL (25 MG/ML) 1ML VIAL ONE; +MIDAZOLAM HCL 2MG/2ML 2ml VIAL (1mg/ml) IV PRN; +MIDAZOLAM HCL 2MG/2ML 2ml VIAL (1mg/ml) ONE; +ONDANSETRON HCL 4 MG/2 ML VIAL IV ONE; +ONDANSETRON HCL 4 MG/2 ML VIAL IV PRN; +PROPOFOL 10 MG/ML 20 ML IV ONE; +ROPIVACAINE 0.5% (5MG/ML) 20ML AMPULE IJ ONE; -ZOLP5TAB5; +ceFAZolin 1GM/50ML 50 ML IV ONE; +ePHEDrine SULFATE 50 MG/ML AMP IV PRN; +fentaNYL CITRATE 100 MCG/2 ML VL ONE
[2021-11-05] MEDS: LABETALOL HCL 5 MG/ML 4ML SYRINGE IV PRN ×3 (13:50→14:20)
[2021-11-05 14:55] VITALS: BP 150/90
== END | disposition home or self-care (01) ==
LOC: SUR 10:38
PROVIDERS: ATTEND Podiatrist
DX: S98.222A Partial traumatic amputation of two or more left lesser toes, initial encounter (principal); M86.172 Other acute osteomyelitis, left ankle and foot; I13.0 Hypertensive heart and chronic kidney disease with heart failure and stage 1 through stage 4 chronic kidney disease, or unspecified chronic kidney disease; I50.30 Unspecified diastolic (congestive) heart failure; I25.119 Atherosclerotic heart disease of native coronary artery with unspecified angina pectoris; I25.2 Old myocardial infarction; K21.9 Gastro-esophageal reflux disease without esophagitis; E11.22 Type 2 diabetes mellitus with diabetic chronic kidney disease; E11.42 Type 2 diabetes mellitus with diabetic polyneuropathy; F41.9 Anxiety disorder, unspecified; E66.9 Obesity, unspecified; Z68.34 Body mass index [BMI] 34.0-34.9, adult; Z95.5 Presence of coronary angioplasty implant and graft; Z20.822 Contact with and (suspected) exposure to COVID-19; Z86.73 Personal history of transient ischemic attack (TIA), and cerebral infarction without residual deficits; Z98.41 Cataract extraction status, right eye; Z98.42 Cataract extraction status, left eye; Z98.890 Other specified postprocedural states; Z79.899 Other long term (current) drug therapy; Z88.6 Allergy status to analgesic agent; Z98.51 Tubal ligation status; Z90.710 Acquired absence of both cervix and uterus; Z82.49 Family history of ischemic heart disease and other diseases of the circulatory system; Z82.5 Family history of asthma and other chronic lower respiratory diseases; Z83.42 Family history of familial hypercholesterolemia; Z82.61 Family history of arthritis; Z83.3 Family history of diabetes mellitus; Z80.41 Family history of malignant neoplasm of ovary; X58.XXXA Exposure to other specified factors, initial encounter; Y92.89 Other specified places as the place of occurrence of the external cause; Y93.89 Activity, other specified; Y99.8 Other external cause status
CPT/HCPCS: 28810; 36415; 80053; 82962; 85025; 85610; 85730; 87070; 87075; 87076; 87205; J0690; J1100; J2001; J2175; J2250; J2405; J2704; J2795; J3010; J3490; U0003

== ENCOUNTER 2021-11-27 18:50 | Inpatient (IN) | payer OTHER, MEDICAID ==
[~2021-11-27] VITALS: Ht 170.2 cm; Wt 99.6 kg
[~2021-11-27 18:50] MED LIST changes: -DAKINS QUARTER STR 0.125% (NaHypochlorite) 473 ML TOPICAL SOL TOP ONE; -DexAMETHasone SOD PHOS 10MG/1ML VIAL INJ ONE; -HYDROmorphone HCL 2 MG/ML VL/or syr IV PRN; -LIDOCAINE 1%HCL (LOCAL ANESTH) 10 ML MDV ONE; -MEPERIDINE HCL (25 MG/ML) 1ML VIAL ONE; -MIDAZOLAM HCL 2MG/2ML 2ml VIAL (1mg/ml) IV PRN; -MIDAZOLAM HCL 2MG/2ML 2ml VIAL (1mg/ml) ONE; -ONDANSETRON HCL 4 MG/2 ML VIAL IV ONE; -ONDANSETRON HCL 4 MG/2 ML VIAL IV PRN; -PROPOFOL 10 MG/ML 20 ML IV ONE; -ROPIVACAINE 0.5% (5MG/ML) 20ML AMPULE IJ ONE; -ceFAZolin 1GM/50ML 50 ML IV ONE; -ePHEDrine SULFATE 50 MG/ML AMP IV PRN; -fentaNYL CITRATE 100 MCG/2 ML VL ONE
[2021-11-27 19:31] VITALS: BP 145/83
[2021-11-27 19:32] VITALS: BP 142/110
[2021-11-27 20:00] VITALS: BP 145/83
[2021-11-27] MEDS ORDERED: NITROGLYCERIN 0.4 MG SL TAB SL PRN ×2 (20:00→20:15)
[2021-11-27] MEDS ORDERED: ASPirin 81 mg TAB PO ONE (20:00)
[2021-11-27] MEDS ORDERED: ACETAMINOPHEN 325 MG TAB PO PRN (20:15)
[2021-11-27] MEDS: HYDROcodone-ACET 5/325MG TAB PO PRN (21:54)
[2021-11-27 21:57] LABS: Basophils # (auto) 0.1 10 ^3/uL (0-0.2); Basophils % (auto) 1.9 % (0.0-2.0); Eosinophils # (auto) 0.2 10 ^3/uL (0-0.8); Eosinophils % (auto) 3.9 % (0.0-7.0); Hematocrit 26.5 % (36.0-46.0); Hemoglobin 8.3 g/dL (12.2-16.2); Lymphocytes # (auto) 1.1 10 ^3/uL (0.4-5.4); Lymphocytes % (auto) 24.7 % (10.0-50.0); Mean Corpuscular Hemoglobin 25.9 pg (28.0-32.0); Mean Corpuscular Hgb Conc. 31.4 g/dL (32.0-36.0); Mean Corpuscular Volume 82.4 fL (80.0-100.0); Monocytes # (auto) 0.5 10 ^3/uL (0-1.3); Monocytes % (auto) 10.7 % (0.0-12.0); Neutrophils # (auto) 2.7 10 ^3/uL (1.6-8.6); Neutrophils % (auto) 58.8 % (37.0-80.0); Red Blood Cells 3.22 10^6/uL (4.0-5.20); Red Cell Distribution Width 15.7 % (11.8-14.3); White Blood Cell 4.5 10^3/uL (4.4-10.8)
[2021-11-27 22:00] VITALS: BP 145/83
[2021-11-27 22:16] LABS: BUN/Creatinine Ratio 11.4; Calcium 8.5 mg/dL (8.5-10.1); Potassium 3.3 mmol/L (3.5-5.1)
[2021-11-28] MEDS ORDERED: ONDANSETRON HCL 4 MG/2 ML VIAL IV PRN (01:00)
[2021-11-28 05:00] VITALS: BP 139/70
[2021-11-28 05:53] LABS: Eosinophils # (auto) 0.3 10 ^3/uL (0-0.8); Eosinophils % (auto) 6.4 % (0.0-7.0); Lymphocytes # (auto) 1.4 10 ^3/uL (0.4-5.4); Monocytes # (auto) 0.6 10 ^3/uL (0-1.3); Neutrophils # (auto) 2.2 10 ^3/uL (1.6-8.6)
[2021-11-28 05:59] LABS: Basophils # (auto) 0 10 ^3/uL (0-0.2); Basophils % (auto) 0.8 % (0.0-2.0); Hematocrit 25.6 % (36.0-46.0); Hemoglobin 8.2 g/dL (12.2-16.2); Lymphocytes % (auto) 30.5 % (10.0-50.0); Mean Corpuscular Hemoglobin 26.4 pg (28.0-32.0); Mean Corpuscular Hgb Conc. 31.9 g/dL (32.0-36.0); Mean Corpuscular Volume 82.6 fL (80.0-100.0); Monocytes % (auto) 13.7 % (0.0-12.0); Neutrophils % (auto) 48.6 % (37.0-80.0); Red Cell Distribution Width 14.9 % (11.8-14.3); White Blood Cell 4.5 10^3/uL (4.4-10.8)
[2021-11-28 06:10] LABS: Albumin 2.5 g/dL (3.4-5.0); Calcium 8.5 mg/dL (8.5-10.1); Potassium 3.4 mmol/L (3.5-5.1)
[2021-11-28 06:13] LABS: BUN/Creatinine Ratio 14.1; Bilirubin, Total 0.3 mg/dL (0.2-1.0); Total Protein 5.5 g/dL (6.4-8.2)
[2021-11-28 08:49] VITALS: BP 138/80
[2021-11-28 12:38] VITALS: BP 163/86
[2021-11-28] MEDS ORDERED: FUROSEMIDE 40 MG/4 ML VIAL IV ONE (14:45)
[2021-11-28 15:13] VITALS: BP 163/86
[2021-11-28] MEDS ORDERED: ALBUTEROL SULF 2.5 MG/0.5ML(0.5%) NEB SOLN NEB PRN ×2 (15:15→18:00)
[2021-11-28] MEDS: HYDROcodone-ACET 5/325MG TAB PO PRN ×2 (15:20→19:41)
[2021-11-28] MEDS: CLOPIDOGREL BISULFATE 75 MG TAB PO SCH (17:06)
[2021-11-28] MEDS ORDERED: hydrALAZINE HCL 20 MG/ML VL IV PRN (17:45)
[2021-11-28] MEDS ORDERED: POTASSIUM CHL 20 Meq TABLET PO ONE (17:45)
[2021-11-28] MEDS: metFORMIN HYDROCHLORIDE 500 MG TAB PO SCH (18:04)
[2021-11-28] MEDS: FUROSEMIDE 20 MG/2 ML VIAL IV SCH (18:40)
[2021-11-28] MEDS: GABAPENTIN 400 MG CAP PO SCH (21:33)
[2021-11-28] MEDS: ATORVASTATIN 20 MG TAB PO SCH (21:33)
[2021-11-28 21:43] VITALS: BP 116/59
[2021-11-28] MEDS ORDERED: BUDESONIDE 360 MCG IN SCH (22:00)
[2021-11-29] MEDS: HYDROcodone-ACET 5/325MG TAB PO PRN ×3 (03:12→22:29)
[2021-11-29 05:00] VITALS: BP 140/60
[2021-11-29] MEDS: metFORMIN HYDROCHLORIDE 500 MG TAB PO SCH (06:44)
[2021-11-29] MEDS: FUROSEMIDE 20 MG/2 ML VIAL IV SCH ×2 (06:44→18:38)
[2021-11-29] MEDS: PANTOPRAZOLE 40 MG TAB PO SCH (06:44)
[2021-11-29 06:56] LABS: Albumin 2.6 g/dL (3.4-5.0); Calcium 8.5 mg/dL (8.5-10.1); Potassium 3.4 mmol/L (3.5-5.1)
[2021-11-29 07:00] LABS: BUN/Creatinine Ratio 14.3; Bilirubin, Total 0.4 mg/dL (0.2-1.0); Total Protein 5.7 g/dL (6.4-8.2)
[2021-11-29] MEDS ORDERED: GLIMEPIRIDE 2 MG TAB PO SCH (07:00)
[2021-11-29 07:03] LABS: % Iron Saturation 6.7 % (15-50)
[2021-11-29 09:00] VITALS: BP 145/68
[2021-11-29] MEDS: CLOPIDOGREL BISULFATE 75 MG TAB PO SCH (09:35)
[2021-11-29] MEDS: GABAPENTIN 400 MG CAP PO SCH ×2 (09:35→22:25)
[2021-11-29] MEDS: ASPirin-EC 81 mg tab PO SCH (09:35)
[2021-11-29] MEDS: METOPROLOL SUCCINATE XL 50 MG TAB PO SCH (09:36)
[2021-11-29] MEDS: LISINOPRIL 20 MG TAB PO SCH (09:36)
[2021-11-29 13:00] VITALS: BP 127/61
[2021-11-29] MEDS ORDERED: DEXTROSE (50%) 50ML SYRG IV PRN (14:30)
[2021-11-29] MEDS ORDERED: IOHEXOL 350 MG/ML 100ML IJ ONE (14:58)
[2021-11-29 17:00] VITALS: BP 117/61
[2021-11-29] MEDS: ACCU-CHEK COMFORT CURVE STRIP VI SCH ×2 (17:30→22:00)
[2021-11-29] MEDS: InsuLIN REG 1unit/0.01ml Soln (100units/ml) SC SCH ×2 (17:32→22:24)
[2021-11-29 21:50] VITALS: BP 106/65
[2021-11-29] MEDS: ATORVASTATIN 20 MG TAB PO SCH (22:25)
[2021-11-30 04:47] VITALS: BP 140/75
[2021-11-30 05:28] LABS: Basophils # (auto) 0.1 10 ^3/uL (0-0.2); Basophils % (auto) 1.1 % (0.0-2.0); Eosinophils # (auto) 0.2 10 ^3/uL (0-0.8); Eosinophils % (auto) 3.7 % (0.0-7.0); Hematocrit 25.5 % (36.0-46.0); Hemoglobin 8.3 g/dL (12.2-16.2); Lymphocytes # (auto) 1.9 10 ^3/uL (0.4-5.4); Lymphocytes % (auto) 30.4 % (10.0-50.0); Mean Corpuscular Hemoglobin 26.7 pg (28.0-32.0); Mean Corpuscular Hgb Conc. 32.7 g/dL (32.0-36.0); Mean Corpuscular Volume 81.6 fL (80.0-100.0); Monocytes # (auto) 1.1 10 ^3/uL (0-1.3); Monocytes % (auto) 16.9 % (0.0-12.0); Neutrophils % (auto) 47.9 % (37.0-80.0); Red Blood Cells 3.12 10^6/uL (4.0-5.20); Red Cell Distribution Width 15.4 % (11.8-14.3); White Blood Cell 6.3 10^3/uL (4.4-10.8)
[2021-11-30 05:49] LABS: Calcium 8.4 mg/dL (8.5-10.1); Potassium 3.6 mmol/L (3.5-5.1)
[2021-11-30 05:51] LABS: BUN/Creatinine Ratio 16.3
[2021-11-30] MEDS: InsuLIN REG 1unit/0.01ml Soln (100units/ml) SC SCH ×4 (06:00→23:11)
[2021-11-30] MEDS: PANTOPRAZOLE 40 MG TAB PO SCH (06:00)
[2021-11-30] MEDS: FUROSEMIDE 20 MG/2 ML VIAL IV SCH ×2 (06:00→18:24)
[2021-11-30] MEDS: ACCU-CHEK COMFORT CURVE STRIP VI SCH ×4 (06:01→23:12)
[2021-11-30 08:00] VITALS: BP 139/82
[2021-11-30 08:35] VITALS: BP 139/82
[2021-11-30] MEDS: LISINOPRIL 20 MG TAB PO SCH (10:05)
[2021-11-30] MEDS: GABAPENTIN 400 MG CAP PO SCH ×2 (10:05→23:03)
[2021-11-30] MEDS: ASPirin-EC 81 mg tab PO SCH (10:05)
[2021-11-30] MEDS: CLOPIDOGREL BISULFATE 75 MG TAB PO SCH (10:05)
[2021-11-30] MEDS: HYDROcodone-ACET 5/325MG TAB PO PRN ×2 (10:06→18:53)
[2021-11-30] MEDS: METOPROLOL SUCCINATE XL 50 MG TAB PO SCH (10:06)
[2021-11-30] MEDS: ENOXAPARIN SOD 40 MG/0.4 ML SYRINGE SC SCH (10:07)
[2021-11-30] MEDS ORDERED: DAKINS QUARTER STR 0.125% (NaHypochlorite) 473 ML TOPICAL SOL TOP ONE (10:45)
[2021-11-30] MEDS: IPRATROPIUM BROM 0.5 MG/2.5ML INH SOL NEB SCH ×2 (11:55→19:29)
[2021-11-30] MEDS: ALBUTEROL SULF 2.5 MG/0.5ML(0.5%) NEB SOLN NEB SCH ×2 (11:55→19:29)
[2021-11-30] MEDS: ACETYLCYSTEINE 10 %(100MG/ML) SOL 4ML NEB SCH ×2 (11:56→19:30)
[2021-11-30 12:43] VITALS: BP 143/69
[2021-11-30 17:00] VITALS: BP 106/59
[2021-11-30 21:42] VITALS: BP 152/62
[2021-11-30] MEDS: ATORVASTATIN 20 MG TAB PO SCH (23:03)
[2021-12-01] VITALS (8 sets, daily range): BP systolic 118–138; BP diastolic 66–98
[2021-12-01 01:15] LABS: BUN/Creatinine Ratio 13.9; Calcium 7.6 mg/dL (8.5-10.1); Magnesium 1.5 mg/dL (1.6-2.6); Potassium 3.1 mmol/L (3.5-5.1)
[2021-12-01] MEDS: IPRATROPIUM BROM 0.5 MG/2.5ML INH SOL NEB SCH ×4 (01:20→19:21)
[2021-12-01] MEDS: ALBUTEROL SULF 2.5 MG/0.5ML(0.5%) NEB SOLN NEB SCH ×4 (01:20→19:23)
[2021-12-01] MEDS: ACETYLCYSTEINE 10 %(100MG/ML) SOL 4ML NEB SCH ×4 (01:21→19:21)
[2021-12-01 02:53] LABS: Basophils # (auto) 0.1 10 ^3/uL (0-0.2); Eosinophils # (auto) 0.1 10 ^3/uL (0-0.8); Eosinophils % (auto) 2.2 % (0.0-7.0); Hematocrit 26.6 % (36.0-46.0); Hemoglobin 8.2 g/dL (12.2-16.2); Lymphocytes # (auto) 2.6 10 ^3/uL (0.4-5.4); Lymphocytes % (auto) 39.6 % (10.0-50.0); Mean Corpuscular Hemoglobin 26.4 pg (28.0-32.0); Mean Corpuscular Hgb Conc. 30.9 g/dL (32.0-36.0); Mean Corpuscular Volume 85.4 fL (80.0-100.0); Monocytes % (auto) 14.6 % (0.0-12.0); Neutrophils # (auto) 2.8 10 ^3/uL (1.6-8.6); Neutrophils % (auto) 42.6 % (37.0-80.0); Nucleated Red Blood Cells % 0.1 %; Red Blood Cells 3.11 10^6/uL (4.0-5.20); White Blood Cell 6.5 10^3/uL (4.4-10.8)
[2021-12-01] MEDS ORDERED: POTASSIUM CHL 20 Meq TABLET PO ONE ×3 (05:45→14:45)
[2021-12-01] MEDS: HYDROcodone-ACET 5/325MG TAB PO PRN ×3 (05:54→21:44)
[2021-12-01] MEDS: FUROSEMIDE 20 MG/2 ML VIAL IV SCH (05:58)
[2021-12-01] MEDS: MAGNESIUM SULFATE 1GM/100ML 100 ML IV SCH ×2 (05:59→06:54)
[2021-12-01] MEDS: PANTOPRAZOLE 40 MG TAB PO SCH (06:07)
[2021-12-01] MEDS: InsuLIN REG 1unit/0.01ml Soln (100units/ml) SC SCH ×4 (06:34→21:47)
[2021-12-01] MEDS: ACCU-CHEK COMFORT CURVE STRIP VI SCH ×4 (06:35→21:44)
[2021-12-01] MEDS: GABAPENTIN 400 MG CAP PO SCH ×2 (09:16→21:44)
[2021-12-01] MEDS: CLOPIDOGREL BISULFATE 75 MG TAB PO SCH (09:16)
[2021-12-01] MEDS: METOPROLOL SUCCINATE XL 50 MG TAB PO SCH (09:16)
[2021-12-01] MEDS: ENOXAPARIN SOD 40 MG/0.4 ML SYRINGE SC SCH (09:17)
[2021-12-01] MEDS: ASPirin-EC 81 mg tab PO SCH (09:17)
[2021-12-01] MEDS: SODIUM CHLORIDE 0.9% 1,000 ML IV SCH (09:18)
[2021-12-01 14:30] LABS: Potassium 3.5 mmol/L (3.5-5.1)
[2021-12-01] MEDS ORDERED: MAGNESIUM OXIDE 400 MG TAB PO ONE (14:45)
[2021-12-01] MEDS: ATORVASTATIN 20 MG TAB PO SCH (21:44)
[2021-12-02] MEDS: IPRATROPIUM BROM 0.5 MG/2.5ML INH SOL NEB SCH ×4 (00:42→18:41)
[2021-12-02] MEDS: ACETYLCYSTEINE 10 %(100MG/ML) SOL 4ML NEB SCH ×4 (00:42→18:41)
[2021-12-02] MEDS: ALBUTEROL SULF 2.5 MG/0.5ML(0.5%) NEB SOLN NEB SCH ×4 (00:42→18:41)
[2021-12-02] MEDS: SODIUM CHLORIDE 0.9% 1,000 ML IV SCH (04:29)
[2021-12-02 05:00] VITALS: BP 125/65
[2021-12-02] MEDS: InsuLIN REG 1unit/0.01ml Soln (100units/ml) SC SCH ×4 (06:40→22:58)
[2021-12-02] MEDS: ACCU-CHEK COMFORT CURVE STRIP VI SCH ×4 (06:40→22:53)
[2021-12-02] MEDS: PANTOPRAZOLE 40 MG TAB PO SCH (06:40)
[2021-12-02 06:54] LABS: Albumin 2.7 g/dL (3.4-5.0); Calcium 7.9 mg/dL (8.5-10.1); Potassium 3.7 mmol/L (3.5-5.1)
[2021-12-02 06:57] LABS: BUN/Creatinine Ratio 17.8
[2021-12-02 07:00] LABS: Bilirubin, Total 0.3 mg/dL (0.2-1.0); Total Protein 6.3 g/dL (6.4-8.2)
[2021-12-02 09:07] VITALS: BP 148/79
[2021-12-02] MEDS: METOPROLOL SUCCINATE XL 50 MG TAB PO SCH (09:53)
[2021-12-02] MEDS: GABAPENTIN 400 MG CAP PO SCH ×2 (09:53→22:54)
[2021-12-02] MEDS: CLOPIDOGREL BISULFATE 75 MG TAB PO SCH (09:53)
[2021-12-02] MEDS: ASPirin-EC 81 mg tab PO SCH (09:53)
[2021-12-02] MEDS: ENOXAPARIN SOD 40 MG/0.4 ML SYRINGE SC SCH (09:53)
[2021-12-02] MEDS: HYDROcodone-ACET 5/325MG TAB PO PRN ×2 (12:04→20:12)
[2021-12-02 13:00] VITALS: BP 129/91
[2021-12-02] MEDS ORDERED: Juven Orange Powder PACKET 27.5gm PO SCH (18:00)
[2021-12-02 20:00] VITALS: BP 134/71
[2021-12-02 22:00] VITALS: BP 154/95
[2021-12-02 22:05] VITALS: BP 134/71
[2021-12-02] MEDS: ATORVASTATIN 20 MG TAB PO SCH (22:54)
[2021-12-03] MEDS: SODIUM CHLORIDE 0.9% 1,000 ML IV SCH (00:41)
[2021-12-03] MEDS: HYDROcodone-ACET 5/325MG TAB PO PRN (01:49)
[2021-12-03 05:00] VITALS: BP 109/69
[2021-12-03] MEDS: PANTOPRAZOLE 40 MG TAB PO SCH (06:58)
[2021-12-03] MEDS: IPRATROPIUM BROM 0.5 MG/2.5ML INH SOL NEB SCH ×2 (07:11)
[2021-12-03] MEDS: ALBUTEROL SULF 2.5 MG/0.5ML(0.5%) NEB SOLN NEB SCH ×2 (07:11)
[2021-12-03] MEDS: ACETYLCYSTEINE 10 %(100MG/ML) SOL 4ML NEB SCH ×2 (07:12)
[2021-12-03 09:21] VITALS: BP 145/68
== END 2021-12-03 10:19 | disposition home or self-care (01) | DRG 291 ==
LOC: UNDOADMIN 18:50 → TELE 18:50 → TELE-WESTW 19:09 → TELE 19:09 → TELE-WESTW 20:04
PROVIDERS: ADMIT Registered Nurse; ATTEND Internal Medicine
DX: I13.0 Hypertensive heart and chronic kidney disease with heart failure and stage 1 through stage 4 chronic kidney disease, or unspecified chronic kidney disease (principal); E43 Unspecified severe protein-calorie malnutrition; J96.01 Acute respiratory failure with hypoxia; I50.33 Acute on chronic diastolic (congestive) heart failure; I25.10 Atherosclerotic heart disease of native coronary artery without angina pectoris; E11.22 Type 2 diabetes mellitus with diabetic chronic kidney disease; E11.621 Type 2 diabetes mellitus with foot ulcer; E66.9 Obesity, unspecified; E11.51 Type 2 diabetes mellitus with diabetic peripheral angiopathy without gangrene; E78.5 Hyperlipidemia, unspecified; J44.9 Chronic obstructive pulmonary disease, unspecified; L97.529 Non-pressure chronic ulcer of other part of left foot with unspecified severity; Z20.822 Contact with and (suspected) exposure to COVID-19; N18.31 Chronic kidney disease, stage 3a; Z68.34 Body mass index [BMI] 34.0-34.9, adult; Z86.73 Personal history of transient ischemic attack (TIA), and cerebral infarction without residual deficits; Z95.5 Presence of coronary angioplasty implant and graft; Z80.41 Family history of malignant neoplasm of ovary; Z80.0 Family history of malignant neoplasm of digestive organs; Z82.49 Family history of ischemic heart disease and other diseases of the circulatory system; Z83.3 Family history of diabetes mellitus; Z88.5 Allergy status to narcotic agent; Z79.899 Other long term (current) drug therapy; Z79.82 Long term (current) use of aspirin; Z79.4 Long term (current) use of insulin; Z98.62 Peripheral vascular angioplasty status
CPT/HCPCS: 36415; 36600; 71045; 71275; 80048; 80053; 82607; 82805; 82962; 83540; 83550; 83735; 83880; 84132; 84484; 85025; 85379; 87077; 87081; 87186; 87205; 87426; 93970; 94640; G0378; J1815

== ENCOUNTER 2021-12-15 11:26 | Inpatient (IN) | payer OTHER, MEDICAID ==
[~2021-12-15] VITALS: Ht 167.6 cm; Wt 98.7 kg
[2021-12-15] MEDS ORDERED: PIPERACILLIN-TAZOB 3.375GM 100 ML IV ONE (12:00)
[2021-12-15] MEDS ORDERED: CLINDAMYCIN 300MG IV 50 ML IV ONE (12:00)
[2021-12-15] MEDS ORDERED: DEXTROSE (50%) 50ML SYRG IV ONE (12:00)
[2021-12-15 12:53] LABS: Basophils # (auto) 0.1 10 ^3/uL (0-0.2); Eosinophils # (auto) 0.1 10 ^3/uL (0-0.8); Monocytes # (auto) 0.6 10 ^3/uL (0-1.3); Neutrophils # (auto) 8.2 10 ^3/uL (1.6-8.6); White Blood Cell 9.8 10^3/uL (4.4-10.8)
[2021-12-15 12:56] LABS: Basophils % (auto) 0.6 % (0.0-2.0); Eosinophils % (auto) 0.7 % (0.0-7.0); Hematocrit 27.4 % (36.0-46.0); Hemoglobin 8.5 g/dL (12.2-16.2); Lymphocytes # (auto) 0.8 10 ^3/uL (0.4-5.4); Lymphocytes % (auto) 8.6 % (10.0-50.0); Mean Corpuscular Hemoglobin 24.7 pg (28.0-32.0); Mean Corpuscular Hgb Conc. 31.1 g/dL (32.0-36.0); Mean Corpuscular Volume 79.6 fL (80.0-100.0); Monocytes % (auto) 6.6 % (0.0-12.0); Neutrophils % (auto) 83.5 % (37.0-80.0); Red Blood Cells 3.44 10^6/uL (4.0-5.20); Red Cell Distribution Width 15.6 % (11.8-14.3)
[2021-12-15] MEDS ORDERED: ACETAMINOPHEN 325 MG TAB PO ONE (13:15)
[2021-12-15 13:18] LABS: Albumin 3.6 g/dL (3.4-5.0); BUN/Creatinine Ratio 13.3; Bilirubin, Total 0.5 mg/dL (0.2-1.0); Calcium 9.6 mg/dL (8.5-10.1); Total Protein 7.8 g/dL (6.4-8.2)
[2021-12-15 13:21] LABS: INR 1.18 (0.9-1.15); Partial Thromboplastin Time 30.5 sec (24.6-33.4)
[2021-12-15 13:52] LABS: Lactic Acid w/Reflex 3.6 mmol/L (0.4-2.0)
[2021-12-15] MEDS ORDERED: NITROGLYCERIN 0.4 MG SL TAB SL PRN (15:00)
[2021-12-15] MEDS ORDERED: VANCOMYCIN PER PHARMACY 0 MG IV SCH (15:00)
[2021-12-15] MEDS ORDERED: MORPHINE SULFATE INJ 2 MG/ml SYRG IV PRN ×2 (15:00)
[2021-12-15] MEDS ORDERED: D5W/SOD CHL 0.45%/KCL 20MEQ 1,000 ML IV ONE (15:00)
[2021-12-15] MEDS ORDERED: VANCOMYCIN 1GM/250ML 250 ML IV ONE (15:30)
[2021-12-15] MEDS: ACCU-CHEK COMFORT CURVE STRIP VI SCH ×9 (15:35→23:00)
[2021-12-15 16:26] LABS: Cholesterol 78 mg/dL (< 200); HDL Cholesterol 34 mg/dL (40-59); LDL Cholesterol 43 mg/dL (< 100); Triglycerides 75 mg/dL (< 150)
[2021-12-15] MEDS: DEXTROSE (50%) 50ML SYRG IV PRN (18:19)
[2021-12-15] MEDS: metroNIDAZOLE 500MG/100ML 100 ML IV SCH (22:00)
[2021-12-16] VITALS (9 sets, daily range): BP systolic 121–144; BP diastolic 51–73
[2021-12-16] MEDS: ACCU-CHEK COMFORT CURVE STRIP VI SCH ×18 (00:25→21:53)
[2021-12-16] MEDS: DEXTROSE (50%) 50ML SYRG IV PRN (00:34)
[2021-12-16 04:17] LABS: Urine Bacteria NONE SEEN /hpf (None Seen); Urine Blood Negative /uL (Negative); Urine Specific Gravity 1.007 (1.001-1.035); Urine WBC <1 /hpf (0 - 5)
[2021-12-16] MEDS: metroNIDAZOLE 500MG/100ML 100 ML IV SCH (05:41)
[2021-12-16] MEDS: HYDROcodone-ACET 5/325MG TAB PO PRN ×2 (08:47→14:21)
[2021-12-16 09:04] LABS: Basophils # (auto) 0.1 10 ^3/uL (0-0.2); Eosinophils # (auto) 0.2 10 ^3/uL (0-0.8); Eosinophils % (auto) 4.2 % (0.0-7.0); Lymphocytes # (auto) 1.3 10 ^3/uL (0.4-5.4); Monocytes # (auto) 0.6 10 ^3/uL (0-1.3)
[2021-12-16 09:06] LABS: Basophils % (auto) 1.6 % (0.0-2.0); Hematocrit 23.7 % (36.0-46.0); Hemoglobin 7.4 g/dL (12.2-16.2); Lymphocytes % (auto) 22.2 % (10.0-50.0); Mean Corpuscular Hemoglobin 24.9 pg (28.0-32.0); Mean Corpuscular Hgb Conc. 31.2 g/dL (32.0-36.0); Mean Corpuscular Volume 79.8 fL (80.0-100.0); Monocytes % (auto) 10.5 % (0.0-12.0); Neutrophils # (auto) 3.5 10 ^3/uL (1.6-8.6); Neutrophils % (auto) 61.5 % (37.0-80.0); Red Blood Cells 2.97 10^6/uL (4.0-5.20); Red Cell Distribution Width 15.4 % (11.8-14.3); White Blood Cell 5.7 10^3/uL (4.4-10.8)
[2021-12-16 09:30] LABS: Albumin 3.1 g/dL (3.4-5.0); BUN/Creatinine Ratio 15.4; Bilirubin, Total 0.6 mg/dL (0.2-1.0); Calcium 8.8 mg/dL (8.5-10.1); Potassium 3.1 mmol/L (3.5-5.1)
[2021-12-16] MEDS ORDERED: POTASSIUM CHL 20 Meq TABLET PO ONE (10:00)
[2021-12-16] MEDS ORDERED: MAGNESIUM OXIDE 400 MG TAB PO ONE (10:00)
[2021-12-16] MEDS: cefTRIAXone 1GM/50ML D5W 50 ML IV SCH (12:12)
[2021-12-16] MEDS: ENOXAPARIN SOD 40 MG/0.4 ML SYRINGE SC SCH (12:19)
[2021-12-16] MEDS: SODIUM FERR GLUC 62.5MG/5ML 125 MG in SODIUM CHL 0.9% 100 ML IV SCH (13:16)
[2021-12-16] MEDS: traMADol HCL 50 MG TAB PO PRN (16:03)
[2021-12-16] MEDS: VANCOMYCIN 1GM/250ML 250 ML IV SCH (17:37)
[2021-12-16 18:20] LABS: Magnesium 1.9 mg/dL (1.6-2.6); Potassium 3.1 mmol/L (3.5-5.1)
[2021-12-16] MEDS: ACETAMINOPHEN 325 MG TAB PO PRN (19:44)
[2021-12-16] MEDS ORDERED: ACCU-CHEK COMFORT CURVE STRIP VI SCH (20:00)
[2021-12-16] MEDS: ATORVASTATIN 20 MG TAB PO SCH (21:52)
[2021-12-17] VITALS (21 sets, daily range): BP systolic 94–163; BP diastolic 52–85
[2021-12-17] MEDS: ACCU-CHEK COMFORT CURVE STRIP VI SCH ×6 (02:30→22:14)
[2021-12-17] MEDS: traMADol HCL 50 MG TAB PO PRN ×2 (02:41→12:32)
[2021-12-17 05:39] LABS: BUN/Creatinine Ratio 16.3; Calcium 8.4 mg/dL (8.5-10.1); Magnesium 2.3 mg/dL (1.6-2.6); Potassium 3.8 mmol/L (3.5-5.1)
[2021-12-17 09:23] LABS: Hematocrit 20.6 % (36.0-46.0); Mean Corpuscular Hemoglobin 25.5 pg (28.0-32.0); Mean Corpuscular Hgb Conc. 31.5 g/dL (32.0-36.0); Mean Corpuscular Volume 80.9 fL (80.0-100.0); Red Blood Cells 2.55 10^6/uL (4.0-5.20); Red Cell Distribution Width 15.8 % (11.8-14.3); White Blood Cell 4.6 10^3/uL (4.4-10.8)
[2021-12-17 09:33] LABS: Hemoglobin 6.5 g/dL (12.2-16.2)
[2021-12-17 09:35] LABS: Band Neutrophils % (manual) 0; Basophils % (manual) 0 (0.0-2.0); Blast Cells 0; Metamyelocytes % 0; Myelocytes % 0; Promyelocytes % 0; Reactive Lymphocytes 0
[2021-12-17] MEDS: cefTRIAXone 1GM/50ML D5W 50 ML IV SCH (09:58)
[2021-12-17] MEDS: ENOXAPARIN SOD 40 MG/0.4 ML SYRINGE SC SCH (09:58)
[2021-12-17] MEDS ORDERED: POLYETHYLENE GLYCOL 17 GM PWDR PO ONE ×2 (10:15→16:45)
[2021-12-17 11:00] LABS: Eosinophils % (manual) 2 (0-7); Lymphocytes % (manual) 56 (10.0-50.0); Monocytes % (manual) 2 (0-12)
[2021-12-17] MEDS: SODIUM FERR GLUC 62.5MG/5ML 125 MG in SODIUM CHL 0.9% 100 ML IV SCH (13:09)
[2021-12-17] MEDS: HYDROmorphone HCL 2 MG/ML VL/or syr IV PRN ×2 (13:09→20:24)
[2021-12-17] MEDS: VANCOMYCIN 1GM/250ML 250 ML IV SCH (17:31)
[2021-12-17] MEDS: DAKINS QUARTER STR 0.125% (NaHypochlorite) 473 ML TOPICAL SOL TOP SCH (22:00)
[2021-12-17] MEDS: ATORVASTATIN 20 MG TAB PO SCH (22:13)
[2021-12-18] MEDS: ACCU-CHEK COMFORT CURVE STRIP VI SCH ×5 (02:36→17:30)
[2021-12-18 05:00] VITALS: BP 145/74
[2021-12-18] MEDS: HYDROmorphone HCL 2 MG/ML VL/or syr IV PRN (06:09)
[2021-12-18 06:43] LABS: Basophils # (auto) 0.1 10 ^3/uL (0-0.2); Eosinophils # (auto) 0.2 10 ^3/uL (0-0.8); Hemoglobin 8.3 g/dL (12.2-16.2); Monocytes # (auto) 0.8 10 ^3/uL (0-1.3); Neutrophils # (auto) 5.4 10 ^3/uL (1.6-8.6)
[2021-12-18 06:47] LABS: Basophils % (auto) 0.9 % (0.0-2.0); Eosinophils % (auto) 2.7 % (0.0-7.0); Hematocrit 25.6 % (36.0-46.0); Lymphocytes # (auto) 1.4 10 ^3/uL (0.4-5.4); Lymphocytes % (auto) 17.6 % (10.0-50.0); Mean Corpuscular Hemoglobin 26.5 pg (28.0-32.0); Mean Corpuscular Hgb Conc. 32.6 g/dL (32.0-36.0); Mean Corpuscular Volume 81.1 fL (80.0-100.0); Monocytes % (auto) 9.7 % (0.0-12.0); Neutrophils % (auto) 69.1 % (37.0-80.0); Nucleated Red Blood Cells % 0.1 %; Red Blood Cells 3.15 10^6/uL (4.0-5.20); White Blood Cell 7.9 10^3/uL (4.4-10.8)
[2021-12-18 07:09] LABS: Calcium 8.8 mg/dL (8.5-10.1)
[2021-12-18 09:00] VITALS: BP 153/69
[2021-12-18] MEDS: ENOXAPARIN SOD 40 MG/0.4 ML SYRINGE SC SCH (09:23)
[2021-12-18] MEDS: traMADol HCL 50 MG TAB PO PRN ×2 (09:23→18:25)
[2021-12-18] MEDS: DAKINS QUARTER STR 0.125% (NaHypochlorite) 473 ML TOPICAL SOL TOP SCH (09:23)
[2021-12-18] MEDS: cefTRIAXone 1GM/50ML D5W 50 ML IV SCH (09:23)
[2021-12-18] MEDS ORDERED: GABAPENTIN 400 MG CAP PO ONE (10:45)
[2021-12-18] MEDS: ACETAMINOPHEN 325 MG TAB PO PRN (12:34)
[2021-12-18 13:00] VITALS: BP 153/89
[2021-12-18] MEDS: SODIUM FERR GLUC 62.5MG/5ML 125 MG in SODIUM CHL 0.9% 100 ML IV SCH (13:26)
[2021-12-18 16:05] VITALS: BP 159/89
[2021-12-18] MEDS: VANCOMYCIN 1GM/250ML 250 ML IV SCH (16:08)
[2021-12-18 17:00] VITALS: BP 172/88
== END 2021-12-18 18:30 | disposition home health service (06) | DRG 872 ==
LOC: EDBD 11:26 → EDUNIT# 11:26 → ER 11:26 → TELE 14:55 → DOU IN ICU 12-16 16:36 → CENTRAL 12-17 18:34
PROVIDERS: ADMIT Registered Nurse; ATTEND Internal Medicine
PROC: 05HC33Z Insertion of Infusion Device into Left Basilic Vein, Percutaneous Approach (ICD-10-PCS; 2021-12-16)
PROC: B54NZZA Ultrasonography of Left Upper Extremity Veins, Guidance (ICD-10-PCS; 2021-12-16)
PROC: 30233N1 Transfusion of Nonautologous Red Blood Cells into Peripheral Vein, Percutaneous Approach (ICD-10-PCS; principal; 2021-12-17)
DX: A41.9 Sepsis, unspecified organism (principal); L03.116 Cellulitis of left lower limb; I50.32 Chronic diastolic (congestive) heart failure; D50.9 Iron deficiency anemia, unspecified; E11.51 Type 2 diabetes mellitus with diabetic peripheral angiopathy without gangrene; E78.5 Hyperlipidemia, unspecified; E87.6 Hypokalemia; I11.0 Hypertensive heart disease with heart failure; T81.89XA Other complications of procedures, not elsewhere classified, initial encounter; E11.649 Type 2 diabetes mellitus with hypoglycemia without coma; I25.10 Atherosclerotic heart disease of native coronary artery without angina pectoris; J44.9 Chronic obstructive pulmonary disease, unspecified; Z20.822 Contact with and (suspected) exposure to COVID-19; B96.5 Pseudomonas (aeruginosa) (mallei) (pseudomallei) as the cause of diseases classified elsewhere; R29.6 Repeated falls; E66.01 Morbid (severe) obesity due to excess calories; Y83.5 Amputation of limb(s) as the cause of abnormal reaction of the patient, or of later complication, without mention of misadventure at the time of the procedure; Z79.4 Long term (current) use of insulin; Z80.41 Family history of malignant neoplasm of ovary; Z88.5 Allergy status to narcotic agent; Z80.0 Family history of malignant neoplasm of digestive organs; Z82.49 Family history of ischemic heart disease and other diseases of the circulatory system; Z83.3 Family history of diabetes mellitus; Z86.73 Personal history of transient ischemic attack (TIA), and cerebral infarction without residual deficits; Z90.710 Acquired absence of both cervix and uterus; Z98.61 Coronary angioplasty status; Z98.62 Peripheral vascular angioplasty status; Z68.32 Body mass index [BMI] 32.0-32.9, adult; Y92.89 Other specified places as the place of occurrence of the external cause; Z89.422 Acquired absence of other left toe(s)
CPT/HCPCS: 36415; 71045; 73700; 80048; 80053; 80061; 81001; 82962; 83036; 83605; 83735; 83880; 84132; 84443; 84484; 85007; 85025; 85027; 85379; 85610; 85730; 86850; 86900; 86901; 86920; 87040; 87077; 87081; 87186; 87205; 87426; 93005; 93925; 96365; 96367; G0378; J0696; J2543; J3490

== ENCOUNTER → 2022-01-09 | Outpatient (CLI) | payer OTHER, MEDICAID ==
[2022-01-09 12:35] LABS: Eosinophils # (auto) 0.1 10 ^3/uL (0-0.8); Monocytes # (auto) 0.5 10 ^3/uL (0-1.3); Neutrophils # (auto) 3.7 10 ^3/uL (1.6-8.6); White Blood Cell 5.6 10^3/uL (4.4-10.8)
[2022-01-09 12:36] LABS: Basophils # (auto) 0 10 ^3/uL (0-0.2); Basophils % (auto) 0.8 % (0.0-2.0); Eosinophils % (auto) 1.5 % (0.0-7.0); Hematocrit 32.2 % (36.0-46.0); Hemoglobin 10.2 g/dL (12.2-16.2); Lymphocytes # (auto) 1.3 10 ^3/uL (0.4-5.4); Lymphocytes % (auto) 22.6 % (10.0-50.0); Mean Corpuscular Hemoglobin 27.7 pg (28.0-32.0); Mean Corpuscular Hgb Conc. 31.6 g/dL (32.0-36.0); Mean Corpuscular Volume 87.6 fL (80.0-100.0); Monocytes % (auto) 8.9 % (0.0-12.0); Neutrophils % (auto) 66.2 % (37.0-80.0); Red Blood Cells 3.67 10^6/uL (4.0-5.20)
[2022-01-09 12:55] LABS: Albumin 3.2 g/dL (3.4-5.0); BUN/Creatinine Ratio 17.9; Magnesium 2.1 mg/dL (1.6-2.6); Potassium 4.2 mmol/L (3.5-5.1)
[2022-01-09 13:04] LABS: Bilirubin, Total 0.4 mg/dL (0.2-1.0); Phosphorus 2.9 mg/dL (2.5-4.90); Total Protein 7.6 g/dL (6.4-8.2)
== END | disposition home or self-care (01) ==
LOC: LAB 12:09
PROVIDERS: ATTEND Internal Medicine Nephrology
DX: N18.31 Chronic kidney disease, stage 3a (principal); N17.9 Acute kidney failure, unspecified
CPT/HCPCS: 36415; 80053; 82306; 83735; 83970; 84100; 85025

== ENCOUNTER → 2022-02-18 | Outpatient (CLI) | payer OTHER, MEDICAID ==
[2022-02-18 14:01] LABS: Urine Bacteria FEW /hpf (None Seen); Urine Blood Negative /uL (Negative); Urine Budding Yeast MODERATE /hpf (None Seen); Urine Mucus FEW (None Seen); Urine Specific Gravity 1.013 (1.001-1.035); Urine WBC 6 /hpf (0 - 5)
== END | disposition home or self-care (01) ==
LOC: LAB 13:44
PROVIDERS: ATTEND Internal Medicine
DX: I25.10 Atherosclerotic heart disease of native coronary artery without angina pectoris (principal); E11.649 Type 2 diabetes mellitus with hypoglycemia without coma; J44.9 Chronic obstructive pulmonary disease, unspecified
CPT/HCPCS: 81001; 87086

== ENCOUNTER → 2022-03-12 | Outpatient (CLI) | payer OTHER, MEDICAID ==
[2022-03-12 13:39] LABS: Urine WBC None Seen /hpf (0 - 5)
[2022-03-12 14:05] LABS: Urine Bacteria FEW /hpf (None Seen); Urine Blood Negative /uL (Negative); Urine Hyaline Cast FEW /lpf (0 - 2); Urine Specific Gravity 1.011 (1.001-1.035)
== END | disposition home or self-care (01) ==
LOC: LAB 13:36
PROVIDERS: ATTEND Nurse Practitioner Family
DX: N39.0 Urinary tract infection, site not specified (principal)
CPT/HCPCS: 81001; 87086

== ENCOUNTER 2022-03-22 10:46 | Inpatient (IN) | payer OTHER ==
[~2022-03-22] VITALS: Ht 170.2 cm; Wt 98.9 kg
[2022-03-22 11:27] LABS: Basophils # (auto) 0 10 ^3/uL (0-0.2); Basophils % (auto) 0.8 % (0.0-2.0); Eosinophils # (auto) 0.1 10 ^3/uL (0-0.8); Eosinophils % (auto) 1.8 % (0.0-7.0); Hematocrit 45.2 % (36.0-46.0); Hemoglobin 14.6 g/dL (12.2-16.2); Lymphocytes # (auto) 1.3 10 ^3/uL (0.4-5.4); Lymphocytes % (auto) 30.3 % (10.0-50.0); Mean Corpuscular Hemoglobin 28.2 pg (28.0-32.0); Mean Corpuscular Hgb Conc. 32.2 g/dL (32.0-36.0); Mean Corpuscular Volume 87.4 fL (80.0-100.0); Monocytes # (auto) 0.5 10 ^3/uL (0-1.3); Monocytes % (auto) 12.2 % (0.0-12.0); Neutrophils # (auto) 2.3 10 ^3/uL (1.6-8.6); Neutrophils % (auto) 54.9 % (37.0-80.0); Red Blood Cells 5.17 10^6/uL (4.0-5.20); Red Cell Distribution Width 17.8 % (11.8-14.3); White Blood Cell 4.2 10^3/uL (4.4-10.8)
[2022-03-22 12:06] LABS: Albumin 2.8 g/dL (3.4-5.0); Calcium 8.7 mg/dL (8.5-10.1); Magnesium 2.2 mg/dL (1.6-2.6); Potassium 3.4 mmol/L (3.5-5.1)
[2022-03-22 12:09] LABS: BUN/Creatinine Ratio 13.4; Bilirubin, Total 0.7 mg/dL (0.2-1.0); Total Protein 6.7 g/dL (6.4-8.2)
[2022-03-22 13:07] LABS: INR 1.2 (0.9-1.15); Partial Thromboplastin Time 31.1 sec (24.6-33.4)
[2022-03-22] MEDS ORDERED: FUROSEMIDE 20 MG/2 ML VIAL IV ONE (15:30)
[2022-03-22] MEDS ORDERED: DEXTROSE (50%) 50ML SYRG IV PRN (16:30)
[2022-03-22] MEDS ORDERED: POTASSIUM CHL 20 Meq TABLET PO ONE (16:30)
[2022-03-22] MEDS ORDERED: NITROGLYCERIN 0.4 MG SL TAB SL PRN (16:30)
[2022-03-22] MEDS ORDERED: ALBUTEROL SULF 2.5 MG/0.5ML(0.5%) NEB SOLN NEB PRN (16:45)
[2022-03-22] MEDS ORDERED: IPRATROPIUM BROM 0.5 MG/2.5ML INH SOL NEB PRN (16:45)
[2022-03-22 16:52] LABS: Urine Bacteria NONE SEEN /hpf (None Seen); Urine Blood Negative /uL (Negative); Urine Specific Gravity 1.009 (1.001-1.035); Urine WBC 3 /hpf (0 - 5)
[2022-03-22] MEDS: ACCU-CHEK COMFORT CURVE STRIP VI SCH (17:00)
[2022-03-22] MEDS: InsuLIN REG 1unit/0.01ml Soln (100units/ml) SC SCH (17:00)
[2022-03-22 17:12] LABS: Cholesterol 105 mg/dL (< 200)
[2022-03-22 17:14] LABS: HDL Cholesterol 45 mg/dL (40-59); LDL Cholesterol 53 mg/dL (< 100); Triglycerides 96 mg/dL (< 150)
[2022-03-22 17:41] VITALS: BP 171/100
[2022-03-23] MEDS: ACCU-CHEK COMFORT CURVE STRIP VI SCH ×5 (00:48→22:20)
[2022-03-23] MEDS: InsuLIN REG 1unit/0.01ml Soln (100units/ml) SC SCH ×5 (00:48→22:00)
[2022-03-23] MEDS: GABAPENTIN 400 MG CAP PO SCH ×3 (00:59→22:00)
[2022-03-23] MEDS: ATORVASTATIN 20 MG TAB PO SCH ×2 (00:59→22:00)
[2022-03-23] MEDS: PANTOPRAZOLE 40 MG/10 ML VIAL INJ IV SCH (09:56)
[2022-03-23] MEDS: ENOXAPARIN SOD 30 MG/0.3 ML SYRINGE SC SCH (09:56)
[2022-03-23] MEDS: FUROSEMIDE 40 MG/4 ML VIAL IV SCH ×2 (09:56→22:34)
[2022-03-23] MEDS: POTASSIUM CHL 10 Meq TABLET PO SCH (09:57)
[2022-03-23] MEDS: METOPROLOL SUCCINATE XL 50 MG TAB PO SCH (09:57)
[2022-03-23] MEDS: LISINOPRIL 20 MG TAB PO SCH (09:57)
[2022-03-23] MEDS: HCTZ 25 MG TAB PO SCH (09:58)
[2022-03-23] MEDS: ASPirin-EC 81 mg tab PO SCH (09:58)
[2022-03-23] MEDS: INSULIN LANTUS (GLARGINE) 1 /0.01ml (100units/ml) SC SCH (09:59)
[2022-03-23] MEDS ORDERED: FUROSEMIDE 20 MG/2 ML VIAL IV SCH (10:00)
[2022-03-23] MEDS ORDERED: CLOPIDOGREL BISULFATE 75 MG TAB PO ONE (12:30)
[2022-03-23 12:34] LABS: Albumin 2.7 g/dL (3.4-5.0); Magnesium 2.2 mg/dL (1.6-2.6)
[2022-03-23 12:37] LABS: Basophils # (auto) 0 10 ^3/uL (0-0.2); Basophils % (auto) 0.7 % (0.0-2.0); Eosinophils # (auto) 0.1 10 ^3/uL (0-0.8); Eosinophils % (auto) 1.9 % (0.0-7.0); Hematocrit 49.8 % (36.0-46.0); Lymphocytes # (auto) 1.6 10 ^3/uL (0.4-5.4); Lymphocytes % (auto) 26.5 % (10.0-50.0); Mean Corpuscular Hgb Conc. 32.1 g/dL (32.0-36.0); Monocytes # (auto) 0.8 10 ^3/uL (0-1.3); Neutrophils # (auto) 3.6 10 ^3/uL (1.6-8.6); Neutrophils % (auto) 57.9 % (37.0-80.0); Nucleated Red Blood Cells % 0.2 %; Red Blood Cells 5.72 10^6/uL (4.0-5.20); Red Cell Distribution Width 17.7 % (11.8-14.3); White Blood Cell 6.2 10^3/uL (4.4-10.8)
[2022-03-23 12:39] LABS: BUN/Creatinine Ratio 13.5; Bilirubin, Total 0.8 mg/dL (0.2-1.0); Phosphorus 2.8 mg/dL (2.5-4.90); Total Protein 7.4 g/dL (6.4-8.2)
[2022-03-23] MEDS ORDERED: POTASSIUM CHL 20 Meq TABLET PO ONE (13:15)
[2022-03-23 22:36] VITALS: BP 175/96
[2022-03-23] MEDS: hydrALAZINE HCL 20 MG/ML VL IV PRN (23:39)
[2022-03-24 05:00] VITALS: BP 161/85
[2022-03-24] MEDS: ACCU-CHEK COMFORT CURVE STRIP VI SCH ×4 (06:22→22:24)
[2022-03-24 06:23] LABS: Potassium 3.5 mmol/L (3.5-5.1)
[2022-03-24 06:26] LABS: BUN/Creatinine Ratio 15.2; Calcium 8.5 mg/dL (8.5-10.1); Magnesium 1.5 mg/dL (1.6-2.6); Phosphorus 3.4 mg/dL (2.5-4.90)
[2022-03-24] MEDS: InsuLIN REG 1unit/0.01ml Soln (100units/ml) SC SCH ×4 (06:33→22:00)
[2022-03-24] MEDS: hydrALAZINE HCL 20 MG/ML VL IV PRN (07:03)
[2022-03-24 08:45] VITALS: BP 138/74
[2022-03-24] MEDS ORDERED: ALBUTEROL MEDNEB 2.5 mg/3ml NEB NEB PRN (10:00)
[2022-03-24] MEDS: PANTOPRAZOLE 40 MG/10 ML VIAL INJ IV SCH (10:03)
[2022-03-24] MEDS: HCTZ 25 MG TAB PO SCH (10:03)
[2022-03-24] MEDS: FUROSEMIDE 40 MG/4 ML VIAL IV SCH ×2 (10:03→22:24)
[2022-03-24] MEDS: ASPirin-EC 81 mg tab PO SCH (10:03)
[2022-03-24] MEDS: CLOPIDOGREL BISULFATE 75 MG TAB PO SCH (10:04)
[2022-03-24] MEDS: LISINOPRIL 20 MG TAB PO SCH (10:04)
[2022-03-24] MEDS: POTASSIUM CHL 10 Meq TABLET PO SCH (10:04)
[2022-03-24] MEDS: GABAPENTIN 400 MG CAP PO SCH ×2 (10:04→22:06)
[2022-03-24] MEDS: ENOXAPARIN SOD 30 MG/0.3 ML SYRINGE SC SCH (10:05)
[2022-03-24] MEDS: METOPROLOL SUCCINATE XL 50 MG TAB PO SCH (10:05)
[2022-03-24] MEDS: MAGNESIUM SULFATE 1GM/100ML 100 ML IV SCH ×2 (10:08→11:00)
[2022-03-24] MEDS ORDERED: POTASSIUM CHL 20 Meq TABLET PO ONE (10:15)
[2022-03-24] MEDS ORDERED: MAGNESIUM OXIDE 400 MG TAB PO ONE (10:15)
[2022-03-24] MEDS: INSULIN LANTUS (GLARGINE) 1 /0.01ml (100units/ml) SC SCH (10:33)
[2022-03-24 13:00] VITALS: BP 147/92
[2022-03-24 17:18] VITALS: BP 159/96
[2022-03-24 22:00] VITALS: BP 120/78
[2022-03-24] MEDS: DAKINS QUARTER STR 0.125% (NaHypochlorite) 473 ML TOPICAL SOL TOP SCH (22:00)
[2022-03-24] MEDS: ATORVASTATIN 20 MG TAB PO SCH (22:07)
[2022-03-25] VITALS (10 sets, daily range): BP systolic 120–164; BP diastolic 70–113
[2022-03-25 06:00] LABS: Basophils # (auto) 0 10 ^3/uL (0-0.2); Basophils % (auto) 0.7 % (0.0-2.0); Eosinophils # (auto) 0.1 10 ^3/uL (0-0.8); Eosinophils % (auto) 2.2 % (0.0-7.0); Hematocrit 44.5 % (36.0-46.0); Hemoglobin 14.3 g/dL (12.2-16.2); Lymphocytes # (auto) 1.9 10 ^3/uL (0.4-5.4); Lymphocytes % (auto) 33.4 % (10.0-50.0); Mean Corpuscular Hemoglobin 27.7 pg (28.0-32.0); Mean Corpuscular Hgb Conc. 32.1 g/dL (32.0-36.0); Mean Corpuscular Volume 86.4 fL (80.0-100.0); Monocytes % (auto) 16.9 % (0.0-12.0); Neutrophils # (auto) 2.6 10 ^3/uL (1.6-8.6); Neutrophils % (auto) 46.8 % (37.0-80.0); Nucleated Red Blood Cells % 0.1 %; Red Blood Cells 5.15 10^6/uL (4.0-5.20); Red Cell Distribution Width 17.6 % (11.8-14.3); White Blood Cell 5.6 10^3/uL (4.4-10.8)
[2022-03-25 06:13] LABS: BUN/Creatinine Ratio 17.3; Calcium 8.6 mg/dL (8.5-10.1); Magnesium 2.2 mg/dL (1.6-2.6); Phosphorus 3.5 mg/dL (2.5-4.90); Potassium 3.8 mmol/L (3.5-5.1)
[2022-03-25 06:26] LABS: INR 1.18 (0.9-1.15); Partial Thromboplastin Time 29.6 sec (24.6-33.4)
[2022-03-25] MEDS: ACCU-CHEK COMFORT CURVE STRIP VI SCH ×4 (06:32→23:08)
[2022-03-25] MEDS: InsuLIN REG 1unit/0.01ml Soln (100units/ml) SC SCH ×4 (06:32→23:10)
[2022-03-25 08:08] LABS: Protein, Urine 79.6 mg/dL (0.0-11.9)
[2022-03-25] MEDS: hydrALAZINE HCL 20 MG/ML VL IV PRN (08:15)
[2022-03-25] MEDS: FUROSEMIDE 40 MG/4 ML VIAL IV SCH ×2 (10:00→10:45)
[2022-03-25] MEDS: ENOXAPARIN SOD 30 MG/0.3 ML SYRINGE SC SCH (10:00)
[2022-03-25] MEDS: INSULIN LANTUS (GLARGINE) 1 /0.01ml (100units/ml) SC SCH (10:00)
[2022-03-25] MEDS: HCTZ 25 MG TAB PO SCH (10:18)
[2022-03-25] MEDS: PANTOPRAZOLE 40 MG/10 ML VIAL INJ IV SCH (10:18)
[2022-03-25] MEDS: ASPirin-EC 81 mg tab PO SCH (10:18)
[2022-03-25] MEDS: POTASSIUM CHL 10 Meq TABLET PO SCH (10:18)
[2022-03-25] MEDS: GABAPENTIN 400 MG CAP PO SCH ×2 (10:19→23:08)
[2022-03-25] MEDS: METOPROLOL SUCCINATE XL 50 MG TAB PO SCH (10:19)
[2022-03-25] MEDS: LISINOPRIL 20 MG TAB PO SCH (10:19)
[2022-03-25] MEDS: DAKINS QUARTER STR 0.125% (NaHypochlorite) 473 ML TOPICAL SOL TOP SCH ×2 (10:20→22:00)
[2022-03-25] MEDS: CLOPIDOGREL BISULFATE 75 MG TAB PO SCH (10:34)
[2022-03-25] MEDS ORDERED: IOHEXOL 350 MG/ML 100ML IJ ONE ×2 (11:33→13:16)
[2022-03-25] MEDS ORDERED: LIDOCAINE 2%HCL (LOCAL ANESTH.) INJ 20ML MDV ONE (11:33)
[2022-03-25] MEDS ORDERED: ANGIOMAX 250 MG VIAL IV ONE ×2 (11:43→12:33)
[2022-03-25] MEDS ORDERED: fentaNYL CITRATE 100 MCG/2 ML VL ONE (11:43)
[2022-03-25] MEDS ORDERED: SODIUM CHL 0.9% 50 ML ONE ×2 (11:43→12:33)
[2022-03-25] MEDS ORDERED: MIDAZOLAM HCL 2MG/2ML 2ml VIAL (1mg/ml) ONE (11:43)
[2022-03-25] MEDS ORDERED: traMADol HCL 50 MG TAB PO PRN (17:45)
[2022-03-25] MEDS: ATORVASTATIN 20 MG TAB PO SCH (23:08)
[2022-03-26 05:00] VITALS: BP 166/93
[2022-03-26 06:37] LABS: Potassium 3.8 mmol/L (3.5-5.1)
[2022-03-26 06:43] LABS: BUN/Creatinine Ratio 22.4; Calcium 8.6 mg/dL (8.5-10.1)
[2022-03-26] MEDS: InsuLIN REG 1unit/0.01ml Soln (100units/ml) SC SCH ×3 (07:00→16:47)
[2022-03-26] MEDS: ACCU-CHEK COMFORT CURVE STRIP VI SCH ×3 (07:28→16:45)
[2022-03-26 08:00] VITALS: BP 131/69
[2022-03-26 08:38] VITALS: BP 131/69
[2022-03-26] MEDS: GABAPENTIN 400 MG CAP PO SCH (10:37)
[2022-03-26] MEDS: POTASSIUM CHL 10 Meq TABLET PO SCH (10:37)
[2022-03-26] MEDS: HCTZ 25 MG TAB PO SCH (10:37)
[2022-03-26] MEDS: ASPirin-EC 81 mg tab PO SCH (10:37)
[2022-03-26] MEDS: LISINOPRIL 20 MG TAB PO SCH (10:38)
[2022-03-26] MEDS: ENOXAPARIN SOD 30 MG/0.3 ML SYRINGE SC SCH (10:38)
[2022-03-26] MEDS: CLOPIDOGREL BISULFATE 75 MG TAB PO SCH (10:38)
[2022-03-26] MEDS: METOPROLOL SUCCINATE XL 50 MG TAB PO SCH (10:38)
[2022-03-26] MEDS: INSULIN LANTUS (GLARGINE) 1 /0.01ml (100units/ml) SC SCH (10:39)
[2022-03-26] MEDS: DAKINS QUARTER STR 0.125% (NaHypochlorite) 473 ML TOPICAL SOL TOP SCH (10:40)
[2022-03-26] MEDS: FUROSEMIDE 40 MG/4 ML VIAL IV SCH (11:39)
[2022-03-26] MEDS: PANTOPRAZOLE 40 MG/10 ML VIAL INJ IV SCH (11:40)
[2022-03-26] MEDS ORDERED: ASPI-543 PO (12:02)
[2022-03-26] MEDS ORDERED: EMPA1TAB3 PO (12:02)
[2022-03-26] MEDS ORDERED: ATOR40TA52 PO (12:02)
[2022-03-26] MEDS ORDERED: CLOP75TA28 PO (12:02)
[2022-03-26 12:22] VITALS: BP 146/86
[2022-03-26 13:41] VITALS: BP 146/86
[2022-03-26 16:23] VITALS: BP 133/88
== END 2022-03-26 18:31 | disposition home or self-care (01) | DRG 252 ==
LOC: ER 10:46 → TELE 16:36 → TELE-EAST 03-23 23:06
PROVIDERS: ADMIT Registered Nurse; ATTEND Internal Medicine
PROC: B41G1ZZ Fluoroscopy of Left Lower Extremity Arteries using Low Osmolar Contrast (ICD-10-PCS; principal; 2022-03-25)
PROC: 047K3ZZ Dilation of Right Femoral Artery, Percutaneous Approach (ICD-10-PCS; 2022-03-25)
PROC: 047M3ZZ Dilation of Right Popliteal Artery, Percutaneous Approach (ICD-10-PCS; 2022-03-25)
PROC: 04FK3ZZ Fragmentation of Right Femoral Artery, Percutaneous Approach (ICD-10-PCS; 2022-03-25)
PROC: B41F1ZZ Fluoroscopy of Right Lower Extremity Arteries using Low Osmolar Contrast (ICD-10-PCS; 2022-03-25)
DX: E11.51 Type 2 diabetes mellitus with diabetic peripheral angiopathy without gangrene (principal); I50.33 Acute on chronic diastolic (congestive) heart failure; N17.0 Acute kidney failure with tubular necrosis; J96.10 Chronic respiratory failure, unspecified whether with hypoxia or hypercapnia; I13.0 Hypertensive heart and chronic kidney disease with heart failure and stage 1 through stage 4 chronic kidney disease, or unspecified chronic kidney disease; E78.5 Hyperlipidemia, unspecified; N18.32 Chronic kidney disease, stage 3b; E11.22 Type 2 diabetes mellitus with diabetic chronic kidney disease; E11.65 Type 2 diabetes mellitus with hyperglycemia; E88.09 Other disorders of plasma-protein metabolism, not elsewhere classified; J44.9 Chronic obstructive pulmonary disease, unspecified; E11.621 Type 2 diabetes mellitus with foot ulcer; E83.42 Hypomagnesemia; E66.9 Obesity, unspecified; E87.6 Hypokalemia; I25.10 Atherosclerotic heart disease of native coronary artery without angina pectoris; Z20.822 Contact with and (suspected) exposure to COVID-19; Z79.4 Long term (current) use of insulin; I25.2 Old myocardial infarction; Z80.0 Family history of malignant neoplasm of digestive organs; Z80.41 Family history of malignant neoplasm of ovary; Z82.49 Family history of ischemic heart disease and other diseases of the circulatory system; Z83.3 Family history of diabetes mellitus; Z86.73 Personal history of transient ischemic attack (TIA), and cerebral infarction without residual deficits; Z90.710 Acquired absence of both cervix and uterus; Z89.412 Acquired absence of left great toe; Z98.61 Coronary angioplasty status; Z68.33 Body mass index [BMI] 33.0-33.9, adult
CPT/HCPCS: 36415; 37224; 71045; 73630; 75716; 76775; 80048; 80053; 80061; 81001; 82306; 82570; 82962; 83036; 83735; 83880; 83970; 84100; 84156; 84300; 84443; 84484; 85025; 85379; 85610; 85730; 86850; 86900; 86901; 87426; 93005; 93306; 93970; 96372; 96374; 99152; 99153; C9113; G0378; J1815; J2250

== ENCOUNTER 2022-06-12 10:00 | Emergency (ER) | payer OTHER ==
[~2022-06-12] VITALS: Ht 170.2 cm; Wt 127.0 kg
[~2022-06-12 10:00] MED LIST changes: -LISI20TA28 PO; -OMEP-260 PO; -ZINC220T6 PO
[2022-06-12] MEDS ORDERED: fentaNYL CITRATE 100 MCG/2 ML VL IV ONE (10:30)
[2022-06-12] MEDS ORDERED: ONDANSETRON HCL 4 MG/2 ML VIAL IV ONE (10:30)
[2022-06-12 10:42] LABS: Basophils # (auto) 0 10 ^3/uL (0-0.2); Eosinophils # (auto) 0 10 ^3/uL (0-0.8); Hematocrit 29.4 % (36.0-46.0); Mean Corpuscular Volume 77.3 fL (80.0-100.0); Monocytes # (auto) 0.6 10 ^3/uL (0-1.3); Neutrophils # (auto) 3.1 10 ^3/uL (1.6-8.6); Nucleated Red Blood Cells % 0.2 %
[2022-06-12 10:44] LABS: Basophils % (auto) 0.6 % (0.0-2.0); Eosinophils % (auto) 0.8 % (0.0-7.0); Lymphocytes % (auto) 21.1 % (10.0-50.0); Mean Corpuscular Hemoglobin 23.6 pg (28.0-32.0); Mean Corpuscular Hgb Conc. 30.6 g/dL (32.0-36.0); Monocytes % (auto) 13.3 % (0.0-12.0); Neutrophils % (auto) 64.2 % (37.0-80.0); Red Cell Distribution Width 18.2 % (11.8-14.3); White Blood Cell 4.8 10^3/uL (4.4-10.8)
[2022-06-12 11:02] LABS: Albumin 3.1 g/dL (3.4-5.0); Calcium 8.3 mg/dL (8.5-10.1)
[2022-06-12 11:05] LABS: Bilirubin, Total 0.6 mg/dL (0.2-1.0)
[2022-06-12] MEDS ORDERED: FUROSEMIDE 40 MG/4 ML VIAL IV ONE (12:00)
[2022-06-12] MEDS ORDERED: TRAM50TA2 PO (12:06)
[2022-06-12 13:09] VITALS: BP 147/88
== END 2022-06-12 16:10 | disposition home or self-care (01) ==
LOC: ER 10:00 → EDBD 10:00 → ER 16:05
DX: S79.911A Unspecified injury of right hip, initial encounter (principal); S89.91XA Unspecified injury of right lower leg, initial encounter; S09.90XA Unspecified injury of head, initial encounter; R60.0 Localized edema; D64.9 Anemia, unspecified; E78.5 Hyperlipidemia, unspecified; I13.0 Hypertensive heart and chronic kidney disease with heart failure and stage 1 through stage 4 chronic kidney disease, or unspecified chronic kidney disease; E11.22 Type 2 diabetes mellitus with diabetic chronic kidney disease; N18.9 Chronic kidney disease, unspecified; I50.89 Other heart failure; J44.9 Chronic obstructive pulmonary disease, unspecified; Z79.4 Long term (current) use of insulin; Z86.73 Personal history of transient ischemic attack (TIA), and cerebral infarction without residual deficits; Z88.5 Allergy status to narcotic agent; Z79.899 Other long term (current) drug therapy; Z98.890 Other specified postprocedural states; Z90.710 Acquired absence of both cervix and uterus; W18.39XA Other fall on same level, initial encounter; Y93.89 Activity, other specified; Y92.89 Other specified places as the place of occurrence of the external cause; Y99.8 Other external cause status
CPT/HCPCS: 36415; 70450; 71045; 72100; 73502; 73590; 80053; 83880; 84484; 85025; 93005; 96374; 96375; 99285; J1940; J2405; J3010

== ENCOUNTER 2022-06-13 17:13 | Emergency (ER) | payer OTHER ==
[~2022-06-13] VITALS: Ht 170.2 cm; Wt 113.0 kg
[~2022-06-13 17:13] MED LIST changes: +TRAM50TA2 PO
[2022-06-13] MEDS ORDERED: ONDANSETRON ODT 4 MG TAB PO ONE (17:30)
[2022-06-13] MEDS ORDERED: MORPHINE SULFATE 4 MG/ML SYR/VIAL IM ONE (17:30)
[2022-06-13] MEDS ORDERED: HYDROmorphone HCL 2 MG/ML VL/or syr IM ONE (17:45)
[2022-06-13 18:56] VITALS: BP 109/67
== END 2022-06-13 21:44 | disposition home or self-care (01) ==
LOC: EDBD 17:13 → ER 17:13
DX: M54.59 Other low back pain (principal); I13.0 Hypertensive heart and chronic kidney disease with heart failure and stage 1 through stage 4 chronic kidney disease, or unspecified chronic kidney disease; E11.22 Type 2 diabetes mellitus with diabetic chronic kidney disease; N18.9 Chronic kidney disease, unspecified; I50.89 Other heart failure; J44.9 Chronic obstructive pulmonary disease, unspecified; E78.5 Hyperlipidemia, unspecified; Z90.710 Acquired absence of both cervix and uterus; Z98.890 Other specified postprocedural states; Z88.5 Allergy status to narcotic agent; Z79.899 Other long term (current) drug therapy
CPT/HCPCS: 72131; 96372; 99285; J1170; Q0162

== ENCOUNTER 2022-07-21 14:32 | Inpatient (IN) | payer OTHER ==
[~2022-07-21] VITALS: Ht 170.2 cm; Wt 130.0 kg
[~2022-07-21 14:32] MED LIST changes: +MECL1TAB32 PO; -MECL25TA18 PO
[2022-07-22] MEDS ORDERED: NITROGLYCERIN 0.4 MG SL TAB SL PRN (01:15)
[2022-07-22] MEDS ORDERED: MORPHINE SULFATE INJ 2 MG/ml SYRG IV PRN (01:15)
[2022-07-22] MEDS ORDERED: DEXTROSE (50%) 50ML SYRG IV PRN (01:15)
[2022-07-22 01:46] LABS: Basophils # (auto) 0.1 10 ^3/uL (0-0.2); Eosinophils # (auto) 0.1 10 ^3/uL (0-0.8); Eosinophils % (auto) 2.3 % (0.0-7.0); Hemoglobin 9.2 g/dL (12.2-16.2); Nucleated Red Blood Cells % 0.1 %
[2022-07-22 01:48] LABS: Basophils % (auto) 1.3 % (0.0-2.0); Lymphocytes # (auto) 0.5 10 ^3/uL (0.4-5.4); Lymphocytes % (auto) 10.2 % (10.0-50.0); Mean Corpuscular Hemoglobin 26.7 pg (28.0-32.0); Mean Corpuscular Hgb Conc. 31.7 g/dL (32.0-36.0); Mean Corpuscular Volume 84.3 fL (80.0-100.0); Monocytes # (auto) 0.5 10 ^3/uL (0-1.3); Neutrophils # (auto) 4.1 10 ^3/uL (1.6-8.6); Neutrophils % (auto) 76.2 % (37.0-80.0); Red Blood Cells 3.44 10^6/uL (4.0-5.20); White Blood Cell 5.4 10^3/uL (4.4-10.8)
[2022-07-22 02:00] LABS: Albumin 2.3 g/dL (3.4-5.0); BUN/Creatinine Ratio 20.9 (10.0-20.0); Calcium 8.3 mg/dL (8.5-10.1); Potassium 3.8 mmol/L (3.5-5.1)
[2022-07-22 02:03] LABS: Bilirubin, Total 0.4 mg/dL (0.2-1.0); Total Protein 6.8 g/dL (6.4-8.2)
[2022-07-22 02:05] LABS: Red Cell Distribution Width 26.8 % (11.8-14.3)
[2022-07-22 05:47] VITALS: BP 168/83
[2022-07-22] MEDS: HYDROcodone-ACET 5/325MG TAB PO PRN ×3 (05:59→23:29)
[2022-07-22] MEDS: GABAPENTIN 400 MG CAP PO SCH ×3 (06:01→21:22)
[2022-07-22] MEDS: ACCU-CHEK COMFORT CURVE STRIP VI SCH ×4 (06:01→21:25)
[2022-07-22] MEDS: InsuLIN REG 1unit/0.01ml Soln (100units/ml) SC SCH ×4 (06:11→21:27)
[2022-07-22] MEDS ORDERED: TRAM50TA2 PO (07:15)
[2022-07-22] MEDS ORDERED: ATO40T PO (07:15)
[2022-07-22] MEDS ORDERED: METF-370 PO (07:16)
[2022-07-22 08:00] VITALS: BP 138/70
[2022-07-22 09:00] VITALS: BP 139/57
[2022-07-22] MEDS ORDERED: FUROSEMIDE 20 MG TAB PO SCH (10:00)
[2022-07-22] MEDS: SACUBITRIL-VALSARTAN 24mg/26mg TAB PO SCH ×2 (11:29→21:19)
[2022-07-22] MEDS: HCTZ 25 MG TAB PO SCH (11:29)
[2022-07-22] MEDS: CLOPIDOGREL BISULFATE 75 MG TAB PO SCH (11:30)
[2022-07-22] MEDS: ENOXAPARIN SOD 40 MG/0.4 ML SYRINGE SC SCH (11:30)
[2022-07-22] MEDS: METOPROLOL SUCCINATE XL 50 MG TAB PO SCH (11:30)
[2022-07-22] MEDS: ASPirin 81 mg TAB PO SCH (11:31)
[2022-07-22 14:44] LABS: Urine Bacteria NONE SEEN /hpf (None Seen); Urine Blood Negative /uL (Negative); Urine Specific Gravity 1.016 (1.001-1.035); Urine WBC <1 /hpf (0 - 5)
[2022-07-22 17:00] VITALS: BP 119/73
[2022-07-22 20:00] VITALS: BP 118/64
[2022-07-22] MEDS: ATORVASTATIN 20 MG TAB PO SCH (21:22)
[2022-07-22 22:00] VITALS: BP 118/64
[2022-07-23] VITALS (7 sets, daily range): BP systolic 114–146; BP diastolic 62–75
[2022-07-23] MEDS: GABAPENTIN 400 MG CAP PO SCH ×3 (06:17→21:02)
[2022-07-23] MEDS: InsuLIN REG 1unit/0.01ml Soln (100units/ml) SC SCH ×4 (06:21→21:14)
[2022-07-23] MEDS: ACCU-CHEK COMFORT CURVE STRIP VI SCH ×3 (06:21→21:09)
[2022-07-23 09:56] LABS: Calcium 8.3 mg/dL (8.5-10.1); Magnesium 2.3 mg/dL (1.6-2.6); Potassium 3.7 mmol/L (3.5-5.1)
[2022-07-23 09:58] LABS: BUN/Creatinine Ratio 21.7 (10.0-20.0)
[2022-07-23] MEDS: ENOXAPARIN SOD 40 MG/0.4 ML SYRINGE SC SCH (10:22)
[2022-07-23] MEDS: CLOPIDOGREL BISULFATE 75 MG TAB PO SCH (10:23)
[2022-07-23] MEDS: METOPROLOL SUCCINATE XL 50 MG TAB PO SCH (10:23)
[2022-07-23] MEDS: FUROSEMIDE 20 MG TAB PO SCH (10:24)
[2022-07-23] MEDS: ASPirin 81 mg TAB PO SCH (10:24)
[2022-07-23] MEDS: SACUBITRIL-VALSARTAN 24mg/26mg TAB PO SCH ×2 (10:24→21:01)
[2022-07-23] MEDS: HCTZ 25 MG TAB PO SCH (10:24)
[2022-07-23] MEDS: ATORVASTATIN 20 MG TAB PO SCH (21:02)
[2022-07-23] MEDS: ALBUTEROL SULF 2.5 MG/0.5ML(0.5%) NEB SOLN NEB PRN (21:44)
[2022-07-24 05:25] VITALS: BP 151/84
[2022-07-24] MEDS: GABAPENTIN 400 MG CAP PO SCH ×3 (06:20→22:29)
[2022-07-24] MEDS: InsuLIN REG 1unit/0.01ml Soln (100units/ml) SC SCH ×4 (06:24→22:36)
[2022-07-24] MEDS: ACCU-CHEK COMFORT CURVE STRIP VI SCH ×4 (06:24→22:30)
[2022-07-24 09:00] VITALS: BP 137/69
[2022-07-24] MEDS: SACUBITRIL-VALSARTAN 24mg/26mg TAB PO SCH ×2 (10:27→22:29)
[2022-07-24] MEDS: CLOPIDOGREL BISULFATE 75 MG TAB PO SCH (10:27)
[2022-07-24] MEDS: ASPirin 81 mg TAB PO SCH (10:27)
[2022-07-24] MEDS: FUROSEMIDE 20 MG TAB PO SCH (10:28)
[2022-07-24] MEDS: HCTZ 25 MG TAB PO SCH (10:29)
[2022-07-24] MEDS: ENOXAPARIN SOD 40 MG/0.4 ML SYRINGE SC SCH (10:29)
[2022-07-24] MEDS: METOPROLOL SUCCINATE XL 50 MG TAB PO SCH (10:35)
[2022-07-24 13:00] VITALS: BP 121/64
[2022-07-24 17:00] VITALS: BP 136/65
[2022-07-24 22:00] VITALS: BP 140/68
[2022-07-24] MEDS: ATORVASTATIN 20 MG TAB PO SCH (22:29)
[2022-07-24] MEDS: HYDROcodone-ACET 5/325MG TAB PO PRN (22:30)
[2022-07-25] VITALS (7 sets, daily range): BP systolic 111–140; BP diastolic 54–75
[2022-07-25] MEDS: GABAPENTIN 400 MG CAP PO SCH ×3 (05:53→22:35)
[2022-07-25] MEDS: InsuLIN REG 1unit/0.01ml Soln (100units/ml) SC SCH ×4 (05:54→22:39)
[2022-07-25] MEDS: ACCU-CHEK COMFORT CURVE STRIP VI SCH ×4 (05:54→22:36)
[2022-07-25 06:34] LABS: BUN/Creatinine Ratio 26.9 (10.0-20.0); Calcium 8.2 mg/dL (8.5-10.1)
[2022-07-25 08:07] LABS: Basophils # (auto) 0.1 10 ^3/uL (0-0.2); Hemoglobin 8.4 g/dL (12.2-16.2); Lymphocytes # (auto) 1.1 10 ^3/uL (0.4-5.4); Neutrophils # (auto) 2.7 10 ^3/uL (1.6-8.6)
[2022-07-25 08:10] LABS: Eosinophils # (auto) 0.1 10 ^3/uL (0-0.8); Eosinophils % (auto) 3.1 % (0.0-7.0); Hematocrit 26.5 % (36.0-46.0); Lymphocytes % (auto) 22.3 % (10.0-50.0); Mean Corpuscular Hemoglobin 26.9 pg (28.0-32.0); Mean Corpuscular Hgb Conc. 31.6 g/dL (32.0-36.0); Monocytes # (auto) 0.8 10 ^3/uL (0-1.3); Monocytes % (auto) 16.4 % (0.0-12.0); Neutrophils % (auto) 56.2 % (37.0-80.0); Nucleated Red Blood Cells % 0.2 %; Red Blood Cells 3.12 10^6/uL (4.0-5.20); White Blood Cell 4.7 10^3/uL (4.4-10.8)
[2022-07-25 08:30] LABS: Red Cell Distribution Width 25.9 % (11.8-14.3)
[2022-07-25] MEDS: ENOXAPARIN SOD 40 MG/0.4 ML SYRINGE SC SCH (10:04)
[2022-07-25] MEDS: ASPirin 81 mg TAB PO SCH (10:04)
[2022-07-25] MEDS: HCTZ 25 MG TAB PO SCH (10:05)
[2022-07-25] MEDS: SACUBITRIL-VALSARTAN 24mg/26mg TAB PO SCH ×2 (10:05→22:34)
[2022-07-25] MEDS: FUROSEMIDE 20 MG TAB PO SCH ×2 (10:05→22:35)
[2022-07-25] MEDS: METOPROLOL SUCCINATE XL 50 MG TAB PO SCH (10:06)
[2022-07-25] MEDS: CLOPIDOGREL BISULFATE 75 MG TAB PO SCH (10:06)
[2022-07-25] MEDS: ALBUTEROL SULF 2.5 MG/0.5ML(0.5%) NEB SOLN NEB PRN (10:17)
[2022-07-25] MEDS: HYDROcodone-ACET 5/325MG TAB PO PRN (11:28)
[2022-07-25] MEDS: ATORVASTATIN 20 MG TAB PO SCH (22:35)
[2022-07-26] VITALS (7 sets, daily range): BP systolic 108–130; BP diastolic 49–83
[2022-07-26] MEDS: HYDROcodone-ACET 5/325MG TAB PO PRN ×4 (00:40→22:05)
[2022-07-26] MEDS: GABAPENTIN 400 MG CAP PO SCH ×3 (05:55→22:05)
[2022-07-26] MEDS: ACCU-CHEK COMFORT CURVE STRIP VI SCH ×4 (05:57→22:06)
[2022-07-26] MEDS: InsuLIN REG 1unit/0.01ml Soln (100units/ml) SC SCH ×4 (05:57→22:13)
[2022-07-26] MEDS: ALBUTEROL SULF 2.5 MG/0.5ML(0.5%) NEB SOLN NEB PRN (08:32)
[2022-07-26] MEDS: SACUBITRIL-VALSARTAN 24mg/26mg TAB PO SCH ×2 (09:35→22:05)
[2022-07-26] MEDS: ASPirin 81 mg TAB PO SCH (09:37)
[2022-07-26] MEDS: FUROSEMIDE 20 MG TAB PO SCH (09:38)
[2022-07-26] MEDS: CLOPIDOGREL BISULFATE 75 MG TAB PO SCH (09:38)
[2022-07-26] MEDS: HCTZ 25 MG TAB PO SCH (09:38)
[2022-07-26] MEDS: METOPROLOL SUCCINATE XL 50 MG TAB PO SCH (09:39)
[2022-07-26] MEDS: ENOXAPARIN SOD 40 MG/0.4 ML SYRINGE SC SCH (09:39)
[2022-07-26] MEDS: ACETAMINOPHEN 325 MG TAB PO PRN (09:40)
[2022-07-26] MEDS ORDERED: FUROSEMIDE 100 MG/10ML VIAL IV ONE (11:45)
[2022-07-26] MEDS: FUROSEMIDE 100 MG/10ML VIAL IV SCH (17:37)
[2022-07-26] MEDS: ATORVASTATIN 20 MG TAB PO SCH (22:05)
[2022-07-26] MEDS: ONDANSETRON HCL 4 MG/2 ML VIAL IV PRN (22:06)
[2022-07-27 05:00] VITALS: BP 130/61
[2022-07-27] MEDS: GABAPENTIN 400 MG CAP PO SCH ×3 (05:38→20:44)
[2022-07-27] MEDS: FUROSEMIDE 100 MG/10ML VIAL IV SCH ×2 (05:42→18:41)
[2022-07-27] MEDS: ACCU-CHEK COMFORT CURVE STRIP VI SCH ×4 (05:48→20:46)
[2022-07-27] MEDS: InsuLIN REG 1unit/0.01ml Soln (100units/ml) SC SCH ×4 (05:48→20:46)
[2022-07-27 06:58] LABS: Basophils # (auto) 0 10 ^3/uL (0-0.2); Basophils % (auto) 0.9 % (0.0-2.0); Eosinophils # (auto) 0.2 10 ^3/uL (0-0.8); Eosinophils % (auto) 4.5 % (0.0-7.0); Hematocrit 23.4 % (36.0-46.0); Hemoglobin 7.4 g/dL (12.2-16.2); Lymphocytes # (auto) 1.1 10 ^3/uL (0.4-5.4); Lymphocytes % (auto) 22.9 % (10.0-50.0); Mean Corpuscular Hemoglobin 26.7 pg (28.0-32.0); Mean Corpuscular Hgb Conc. 31.5 g/dL (32.0-36.0); Mean Corpuscular Volume 84.9 fL (80.0-100.0); Monocytes # (auto) 0.8 10 ^3/uL (0-1.3); Monocytes % (auto) 15.9 % (0.0-12.0); Neutrophils # (auto) 2.8 10 ^3/uL (1.6-8.6); Neutrophils % (auto) 55.8 % (37.0-80.0); Nucleated Red Blood Cells % 0.1 %; Red Blood Cells 2.76 10^6/uL (4.0-5.20)
[2022-07-27 07:01] LABS: Red Cell Distribution Width 25.2 % (11.8-14.3)
[2022-07-27 07:04] LABS: BUN/Creatinine Ratio 31.9 (10.0-20.0); Potassium 4.3 mmol/L (3.5-5.1)
[2022-07-27 08:00] VITALS: BP 126/59
[2022-07-27] MEDS: SACUBITRIL-VALSARTAN 24mg/26mg TAB PO SCH ×2 (08:28→20:44)
[2022-07-27] MEDS: ASPirin 81 mg TAB PO SCH (08:28)
[2022-07-27] MEDS: CLOPIDOGREL BISULFATE 75 MG TAB PO SCH (08:29)
[2022-07-27] MEDS: HYDROcodone-ACET 5/325MG TAB PO PRN ×3 (08:29→20:45)
[2022-07-27] MEDS: HCTZ 25 MG TAB PO SCH (08:29)
[2022-07-27] MEDS: ENOXAPARIN SOD 40 MG/0.4 ML SYRINGE SC SCH (08:29)
[2022-07-27] MEDS: METOPROLOL SUCCINATE XL 50 MG TAB PO SCH (08:29)
[2022-07-27 09:00] VITALS: BP 126/59
[2022-07-27 12:30] VITALS: BP 111/50
[2022-07-27 16:50] VITALS: BP 109/53
[2022-07-27] MEDS: ATORVASTATIN 20 MG TAB PO SCH (20:45)
[2022-07-27] MEDS: ONDANSETRON HCL 4 MG/2 ML VIAL IV PRN (23:42)
[2022-07-27 23:54] VITALS: BP 109/52
[2022-07-28] MEDS: HYDROcodone-ACET 5/325MG TAB PO PRN ×3 (03:33→21:21)
[2022-07-28] MEDS: GABAPENTIN 400 MG CAP PO SCH ×3 (05:45→21:04)
[2022-07-28] MEDS: ACCU-CHEK COMFORT CURVE STRIP VI SCH ×4 (05:50→22:47)
[2022-07-28] MEDS: FUROSEMIDE 100 MG/10ML VIAL IV SCH ×2 (05:50→18:41)
[2022-07-28] MEDS: InsuLIN REG 1unit/0.01ml Soln (100units/ml) SC SCH ×4 (05:56→22:47)
[2022-07-28 06:37] LABS: BUN/Creatinine Ratio 32.7 (10.0-20.0); Potassium 4.6 mmol/L (3.5-5.1)
[2022-07-28 06:44] LABS: Calcium 8.2 mg/dL (8.5-10.1)
[2022-07-28 09:00] VITALS: BP 115/36
[2022-07-28] MEDS: SACUBITRIL-VALSARTAN 24mg/26mg TAB PO SCH ×2 (10:00→21:04)
[2022-07-28] MEDS: ENOXAPARIN SOD 40 MG/0.4 ML SYRINGE SC SCH (10:44)
[2022-07-28] MEDS: ASPirin 81 mg TAB PO SCH (10:45)
[2022-07-28] MEDS: HCTZ 25 MG TAB PO SCH (10:45)
[2022-07-28] MEDS: CLOPIDOGREL BISULFATE 75 MG TAB PO SCH (10:45)
[2022-07-28] MEDS: METOPROLOL SUCCINATE XL 50 MG TAB PO SCH (10:48)
[2022-07-28 13:00] VITALS: BP 106/56
[2022-07-28 17:00] VITALS: BP 115/55
[2022-07-28] MEDS: ATORVASTATIN 20 MG TAB PO SCH (21:04)
[2022-07-28] MEDS: ONDANSETRON HCL 4 MG/2 ML VIAL IV PRN (21:21)
[2022-07-28 22:00] VITALS: BP 116/57
[2022-07-29] VITALS (7 sets, daily range): BP systolic 104–118; BP diastolic 35–72
[2022-07-29] MEDS: HYDROcodone-ACET 5/325MG TAB PO PRN ×2 (03:20→22:00)
[2022-07-29] MEDS: GABAPENTIN 400 MG CAP PO SCH ×3 (05:18→21:49)
[2022-07-29] MEDS: FUROSEMIDE 100 MG/10ML VIAL IV SCH (05:19)
[2022-07-29] MEDS: ACCU-CHEK COMFORT CURVE STRIP VI SCH ×4 (05:58→21:50)
[2022-07-29] MEDS: InsuLIN REG 1unit/0.01ml Soln (100units/ml) SC SCH ×4 (05:58→21:50)
[2022-07-29 06:35] LABS: Basophils # (auto) 0.1 10 ^3/uL (0-0.2); Eosinophils # (auto) 0.3 10 ^3/uL (0-0.8); Monocytes # (auto) 0.9 10 ^3/uL (0-1.3); White Blood Cell 5.8 10^3/uL (4.4-10.8)
[2022-07-29 06:37] LABS: Basophils % (auto) 1.4 % (0.0-2.0); Eosinophils % (auto) 4.6 % (0.0-7.0); Hematocrit 21.5 % (36.0-46.0); Lymphocytes # (auto) 1.2 10 ^3/uL (0.4-5.4); Lymphocytes % (auto) 20.7 % (10.0-50.0); Mean Corpuscular Hemoglobin 27.8 pg (28.0-32.0); Mean Corpuscular Hgb Conc. 32.5 g/dL (32.0-36.0); Mean Corpuscular Volume 85.6 fL (80.0-100.0); Neutrophils # (auto) 3.3 10 ^3/uL (1.6-8.6); Neutrophils % (auto) 57.3 % (37.0-80.0); Nucleated Red Blood Cells % 0.1 %; Red Blood Cells 2.52 10^6/uL (4.0-5.20)
[2022-07-29 06:43] LABS: Red Cell Distribution Width 25.1 % (11.8-14.3)
[2022-07-29 06:44] LABS: BUN/Creatinine Ratio 35.2 (10.0-20.0); Calcium 8.3 mg/dL (8.5-10.1); Potassium 4.4 mmol/L (3.5-5.1)
[2022-07-29] MEDS: METOPROLOL SUCCINATE XL 50 MG TAB PO SCH (10:00)
[2022-07-29] MEDS: SACUBITRIL-VALSARTAN 24mg/26mg TAB PO SCH ×2 (10:27→21:50)
[2022-07-29] MEDS: HCTZ 25 MG TAB PO SCH (10:27)
[2022-07-29] MEDS: CLOPIDOGREL BISULFATE 75 MG TAB PO SCH (10:27)
[2022-07-29] MEDS: ENOXAPARIN SOD 40 MG/0.4 ML SYRINGE SC SCH (10:28)
[2022-07-29] MEDS: ASPirin 81 mg TAB PO SCH (10:28)
[2022-07-29 15:29] LABS: Basophils # (auto) 0.1 10 ^3/uL (0-0.2); Eosinophils # (auto) 0.2 10 ^3/uL (0-0.8); Mean Corpuscular Hgb Conc. 31.3 g/dL (32.0-36.0); White Blood Cell 5.3 10^3/uL (4.4-10.8)
[2022-07-29 15:30] LABS: Basophils % (auto) 1.5 % (0.0-2.0); Eosinophils % (auto) 4.1 % (0.0-7.0); Hematocrit 20.8 % (36.0-46.0); Lymphocytes % (auto) 18.8 % (10.0-50.0); Mean Corpuscular Hemoglobin 26.5 pg (28.0-32.0); Mean Corpuscular Volume 84.8 fL (80.0-100.0); Monocytes # (auto) 0.7 10 ^3/uL (0-1.3); Monocytes % (auto) 12.6 % (0.0-12.0); Neutrophils # (auto) 3.3 10 ^3/uL (1.6-8.6); Nucleated Red Blood Cells % 0.1 %; Red Blood Cells 2.45 10^6/uL (4.0-5.20)
[2022-07-29 15:34] LABS: Red Cell Distribution Width 25.4 % (11.8-14.3)
[2022-07-29 15:37] LABS: Hemoglobin 6.5 g/dL (12.2-16.2)
[2022-07-29 15:47] LABS: % Iron Saturation 12.4 % (15-50)
[2022-07-29 15:49] LABS: INR 1.32 (0.9-1.15); Partial Thromboplastin Time 33.2 sec (24.6-33.4)
[2022-07-29 15:57] LABS: Ferritin 174.6 ng/mL (10-322); Folate (Folic Acid) 6.76 ng/mL (5.38-24)
[2022-07-29] MEDS: ATORVASTATIN 20 MG TAB PO SCH (21:49)
[2022-07-30] MEDS: HYDROcodone-ACET 5/325MG TAB PO PRN (03:34)
[2022-07-30 05:00] VITALS: BP 104/67
[2022-07-30] MEDS: GABAPENTIN 400 MG CAP PO SCH ×3 (06:21→23:10)
[2022-07-30] MEDS: InsuLIN REG 1unit/0.01ml Soln (100units/ml) SC SCH ×4 (06:22→22:00)
[2022-07-30] MEDS: ACCU-CHEK COMFORT CURVE STRIP VI SCH ×4 (06:34→23:11)
[2022-07-30 06:42] LABS: Lymphocytes # (auto) 1.2 10 ^3/uL (0.4-5.4); Monocytes # (auto) 0.9 10 ^3/uL (0-1.3); Monocytes % (auto) 13.3 % (0.0-12.0); White Blood Cell 6.5 10^3/uL (4.4-10.8)
[2022-07-30 06:45] LABS: Basophils # (auto) 0.1 10 ^3/uL (0-0.2); Basophils % (auto) 0.8 % (0.0-2.0); Eosinophils # (auto) 0.2 10 ^3/uL (0-0.8); Eosinophils % (auto) 3.3 % (0.0-7.0); Hematocrit 19.9 % (36.0-46.0); Lymphocytes % (auto) 17.8 % (10.0-50.0); Mean Corpuscular Hemoglobin 28.2 pg (28.0-32.0); Mean Corpuscular Hgb Conc. 32.7 g/dL (32.0-36.0); Mean Corpuscular Volume 86.2 fL (80.0-100.0); Neutrophils # (auto) 4.2 10 ^3/uL (1.6-8.6); Neutrophils % (auto) 64.8 % (37.0-80.0); Red Blood Cells 2.31 10^6/uL (4.0-5.20)
[2022-07-30 06:46] LABS: Calcium 7.9 mg/dL (8.5-10.1); Magnesium 1.7 mg/dL (1.6-2.6); Potassium 4.5 mmol/L (3.5-5.1)
[2022-07-30 06:48] LABS: BUN/Creatinine Ratio 41.1 (10.0-20.0)
[2022-07-30 06:53] LABS: Red Cell Distribution Width 23.7 % (11.8-14.3)
[2022-07-30 06:54] LABS: Hemoglobin 6.5 g/dL (12.2-16.2)
[2022-07-30] MEDS: METOPROLOL SUCCINATE XL 50 MG TAB PO SCH (09:41)
[2022-07-30] MEDS: HCTZ 25 MG TAB PO SCH (09:41)
[2022-07-30] MEDS: SACUBITRIL-VALSARTAN 24mg/26mg TAB PO SCH ×2 (09:42→23:10)
[2022-07-30] MEDS: ASPirin 81 mg TAB PO SCH (09:42)
[2022-07-30] MEDS: ENOXAPARIN SOD 40 MG/0.4 ML SYRINGE SC SCH (10:00)
[2022-07-30] MEDS: CLOPIDOGREL BISULFATE 75 MG TAB PO SCH (10:00)
[2022-07-30] MEDS ORDERED: BISACODYL 5 MG EC TAB PO ONE (12:00)
[2022-07-30] MEDS ORDERED: LACTULOSE 20Gm/30ML SOLN PO ONE (12:00)
[2022-07-30 12:10] LABS: Hematocrit 18.6 % (36.0-46.0)
[2022-07-30 12:48] VITALS: BP 100/54
[2022-07-30 13:00] VITALS: BP 78/37
[2022-07-30 13:08] VITALS: BP 96/59
[2022-07-30] MEDS ORDERED: PANTOPRAZOLE 40 MG/10 ML VIAL INJ IV ONE (13:45)
[2022-07-30] MEDS ORDERED: MAGNESIUM OXIDE 400 MG TAB PO ONE (13:45)
[2022-07-30 15:49] VITALS: BP 115/76
[2022-07-30] MEDS ORDERED: FUROSEMIDE 40 MG/4 ML VIAL IV ONE (17:00)
[2022-07-30 17:23] LABS: Hematocrit 22.8 % (36.0-46.0); Hemoglobin 7.5 g/dL (12.2-16.2)
[2022-07-30 18:33] LABS: Urine Bacteria NONE SEEN /hpf (None Seen); Urine Blood Negative /uL (Negative); Urine Budding Yeast MODERATE /hpf (None Seen); Urine Specific Gravity 1.012 (1.001-1.035); Urine WBC 21 /hpf (0 - 5)
[2022-07-30] MEDS: SUCRALFATE 1 GM TAB PO SCH ×2 (19:55→23:10)
[2022-07-30 22:00] VITALS: BP 123/66
[2022-07-30] MEDS: PANTOPRAZOLE 40 MG/10 ML VIAL INJ IV SCH (23:10)
[2022-07-30] MEDS: ATORVASTATIN 20 MG TAB PO SCH (23:11)
[2022-07-31 05:00] VITALS: BP 122/88
[2022-07-31 06:14] LABS: Basophils # (auto) 0.1 10 ^3/uL (0-0.2); Eosinophils # (auto) 0.2 10 ^3/uL (0-0.8); Eosinophils % (auto) 3.8 % (0.0-7.0); Lymphocytes # (auto) 1.1 10 ^3/uL (0.4-5.4); Monocytes # (auto) 0.8 10 ^3/uL (0-1.3); Red Blood Cells 2.54 10^6/uL (4.0-5.20)
[2022-07-31 06:16] LABS: Basophils % (auto) 1.2 % (0.0-2.0); Hematocrit 21.9 % (36.0-46.0); Hemoglobin 7.3 g/dL (12.2-16.2); Lymphocytes % (auto) 17.7 % (10.0-50.0); Mean Corpuscular Hemoglobin 28.6 pg (28.0-32.0); Mean Corpuscular Hgb Conc. 33.1 g/dL (32.0-36.0); Mean Corpuscular Volume 86.4 fL (80.0-100.0); Monocytes % (auto) 13.9 % (0.0-12.0); Neutrophils # (auto) 3.8 10 ^3/uL (1.6-8.6); Neutrophils % (auto) 63.4 % (37.0-80.0); Nucleated Red Blood Cells % 0.1 %
[2022-07-31 06:22] LABS: Anion Gap 7 (5-15); BUN/Creatinine Ratio 46.6 (10.0-20.0); Blood Urea Nitrogen 68 mg/dL (7-18); Calcium 7.8 mg/dL (8.5-10.1); Carbon Dioxide 29 mmol/L (21-32); Chloride 101 mmol/L (98-107); GFR African American 44 mL/min; GFR Non-African American 37 mL/min; Glucose 112 mg/dL (74-106); Magnesium 2.2 mg/dL (1.6-2.6); Sodium 137 mmol/L (136-145)
[2022-07-31 06:29] LABS: Red Cell Distribution Width 22.5 % (11.8-14.3)
[2022-07-31] MEDS: SUCRALFATE 1 GM TAB PO SCH ×4 (07:00→22:31)
[2022-07-31] MEDS: InsuLIN REG 1unit/0.01ml Soln (100units/ml) SC SCH ×4 (07:00→22:30)
[2022-07-31] MEDS: GABAPENTIN 400 MG CAP PO SCH ×3 (07:01→22:33)
[2022-07-31] MEDS: ACCU-CHEK COMFORT CURVE STRIP VI SCH ×4 (07:04→22:16)
[2022-07-31 09:00] VITALS: BP 93/42
[2022-07-31] MEDS: SACUBITRIL-VALSARTAN 24mg/26mg TAB PO SCH ×2 (09:52→22:31)
[2022-07-31] MEDS: METOPROLOL SUCCINATE XL 50 MG TAB PO SCH (09:52)
[2022-07-31] MEDS: cefTRIAXone 1GM/50ML D5W 50 ML IV SCH (09:58)
[2022-07-31] MEDS: PANTOPRAZOLE 40 MG/10 ML VIAL INJ IV SCH ×2 (09:58→22:32)
[2022-07-31] MEDS: HCTZ 25 MG TAB PO SCH (10:00)
[2022-07-31] MEDS: HYDROcodone-ACET 5/325MG TAB PO PRN ×2 (10:50→16:35)
[2022-07-31 13:00] VITALS: BP 94/54
[2022-07-31] MEDS ORDERED: LACTULOSE 20Gm/30ML SOLN PO ONE (13:45)
[2022-07-31] MEDS ORDERED: BISACODYL 5 MG EC TAB PO ONE (13:45)
[2022-07-31 17:00] VITALS: BP 118/73
[2022-07-31 17:31] LABS: Hematocrit 23.3 % (36.0-46.0); Hemoglobin 7.2 g/dL (12.2-16.2)
[2022-07-31 20:45] VITALS: BP 127/78
[2022-07-31 22:00] VITALS: BP 127/78
[2022-07-31] MEDS: ATORVASTATIN 20 MG TAB PO SCH (22:31)
[2022-08-01] VITALS (10 sets, daily range): BP systolic 93–148; BP diastolic 51–115
[2022-08-01] MEDS: HYDROcodone-ACET 5/325MG TAB PO PRN ×4 (02:47→22:41)
[2022-08-01 07:53] LABS: Basophils # (auto) 0.1 10 ^3/uL (0-0.2); Basophils % (auto) 1.1 % (0.0-2.0); Eosinophils # (auto) 0.2 10 ^3/uL (0-0.8); Monocytes # (auto) 0.8 10 ^3/uL (0-1.3); White Blood Cell 5.5 10^3/uL (4.4-10.8)
[2022-08-01 07:57] LABS: Eosinophils % (auto) 4.3 % (0.0-7.0); Hematocrit 19.9 % (36.0-46.0); Lymphocytes # (auto) 1.1 10 ^3/uL (0.4-5.4); Lymphocytes % (auto) 19.4 % (10.0-50.0); Mean Corpuscular Hemoglobin 28.7 pg (28.0-32.0); Monocytes % (auto) 14.3 % (0.0-12.0); Neutrophils # (auto) 3.3 10 ^3/uL (1.6-8.6); Neutrophils % (auto) 60.9 % (37.0-80.0); Red Blood Cells 2.28 10^6/uL (4.0-5.20)
[2022-08-01 08:20] LABS: Calcium 8.1 mg/dL (8.5-10.1); Potassium 3.7 mmol/L (3.5-5.1)
[2022-08-01 08:23] LABS: BUN/Creatinine Ratio 47.3 (10.0-20.0); Magnesium 2.3 mg/dL (1.6-2.6)
[2022-08-01] MEDS: GABAPENTIN 400 MG CAP PO SCH ×3 (08:23→21:12)
[2022-08-01] MEDS: SUCRALFATE 1 GM TAB PO SCH ×4 (08:23→21:12)
[2022-08-01 08:29] LABS: Hemoglobin 6.5 g/dL (12.2-16.2); Red Cell Distribution Width 22.8 % (11.8-14.3)
[2022-08-01] MEDS: ACCU-CHEK COMFORT CURVE STRIP VI SCH ×4 (08:31→21:38)
[2022-08-01] MEDS: InsuLIN REG 1unit/0.01ml Soln (100units/ml) SC SCH ×4 (08:34→21:38)
[2022-08-01] MEDS ORDERED: LACTULOSE 20Gm/30ML SOLN PO ONE (09:30)
[2022-08-01] MEDS ORDERED: FUROSEMIDE 40 MG/4 ML VIAL IV ONE (09:30)
[2022-08-01] MEDS: SACUBITRIL-VALSARTAN 24mg/26mg TAB PO SCH (09:47)
[2022-08-01] MEDS: METOPROLOL SUCCINATE XL 50 MG TAB PO SCH (09:48)
[2022-08-01] MEDS: HCTZ 25 MG TAB PO SCH (09:48)
[2022-08-01] MEDS: cefTRIAXone 1GM/50ML D5W 50 ML IV SCH (09:50)
[2022-08-01] MEDS: PANTOPRAZOLE 40 MG/10 ML VIAL INJ IV SCH ×2 (09:50→21:12)
[2022-08-01] MEDS ORDERED: BISACODYL 5 MG EC TAB PO ONE ×2 (15:30)
[2022-08-01] MEDS: BUMETANIDE 2.5mg/10ml (0.25 mg/ml) INJ IV SCH (17:51)
[2022-08-01] MEDS: ACETAMINOPHEN 325 MG TAB PO PRN (21:12)
[2022-08-01] MEDS: ATORVASTATIN 20 MG TAB PO SCH (21:12)
[2022-08-02] VITALS (12 sets, daily range): BP systolic 109–135; BP diastolic 54–78
[2022-08-02] MEDS ORDERED: DOCUSATE SOD 100 MG CAP PO ONE (02:00)
[2022-08-02] MEDS: HYDROcodone-ACET 5/325MG TAB PO PRN ×2 (02:51→22:36)
[2022-08-02 05:57] LABS: Potassium 3.8 mmol/L (3.5-5.1)
[2022-08-02 06:01] LABS: Basophils # (auto) 0 10 ^3/uL (0-0.2); Basophils % (auto) 0.7 % (0.0-2.0); Eosinophils # (auto) 0.1 10 ^3/uL (0-0.8); Eosinophils % (auto) 1.1 % (0.0-7.0); Hematocrit 25.7 % (36.0-46.0); Hemoglobin 8.5 g/dL (12.2-16.2); Lymphocytes # (auto) 0.9 10 ^3/uL (0.4-5.4); Lymphocytes % (auto) 13.4 % (10.0-50.0); Mean Corpuscular Hemoglobin 28.8 pg (28.0-32.0); Mean Corpuscular Hgb Conc. 33.2 g/dL (32.0-36.0); Mean Corpuscular Volume 86.5 fL (80.0-100.0); Monocytes # (auto) 0.7 10 ^3/uL (0-1.3); Monocytes % (auto) 10.8 % (0.0-12.0); Nucleated Red Blood Cells % 0.2 %; Red Blood Cells 2.97 10^6/uL (4.0-5.20); White Blood Cell 6.7 10^3/uL (4.4-10.8)
[2022-08-02 06:07] LABS: Albumin 2.4 g/dL (3.4-5.0); BUN/Creatinine Ratio 48.7 (10.0-20.0); Bilirubin, Total 0.6 mg/dL (0.2-1.0); Calcium 8.2 mg/dL (8.5-10.1)
[2022-08-02 06:27] LABS: Red Cell Distribution Width 20.3 % (11.8-14.3)
[2022-08-02] MEDS: GABAPENTIN 400 MG CAP PO SCH ×3 (06:49→21:24)
[2022-08-02] MEDS: ACCU-CHEK COMFORT CURVE STRIP VI SCH ×4 (06:49→21:24)
[2022-08-02] MEDS: SUCRALFATE 1 GM TAB PO SCH ×4 (06:49→21:23)
[2022-08-02] MEDS: BUMETANIDE 2.5mg/10ml (0.25 mg/ml) INJ IV SCH ×2 (06:49→17:17)
[2022-08-02] MEDS: InsuLIN REG 1unit/0.01ml Soln (100units/ml) SC SCH ×4 (06:58→21:24)
[2022-08-02] MEDS: PANTOPRAZOLE 40 MG/10 ML VIAL INJ IV SCH ×2 (08:55→21:24)
[2022-08-02] MEDS: cefTRIAXone 1GM/50ML D5W 50 ML IV SCH (08:55)
[2022-08-02] MEDS: ATORVASTATIN 20 MG TAB PO SCH (21:24)
[2022-08-03 05:00] VITALS: BP 128/61
[2022-08-03] MEDS: DOCUSATE SOD 100 MG CAP PO PRN ×2 (05:50→11:17)
[2022-08-03] MEDS: GABAPENTIN 400 MG CAP PO SCH ×3 (05:50→22:09)
[2022-08-03] MEDS: BUMETANIDE 2.5mg/10ml (0.25 mg/ml) INJ IV SCH ×2 (05:50→18:40)
[2022-08-03] MEDS: SUCRALFATE 1 GM TAB PO SCH ×4 (05:50→22:08)
[2022-08-03] MEDS: ACCU-CHEK COMFORT CURVE STRIP VI SCH ×4 (05:56→22:14)
[2022-08-03] MEDS: HYDROcodone-ACET 5/325MG TAB PO PRN ×2 (05:56→22:13)
[2022-08-03] MEDS: InsuLIN REG 1unit/0.01ml Soln (100units/ml) SC SCH ×4 (05:56→22:00)
[2022-08-03 06:54] LABS: Basophils # (auto) 0.1 10 ^3/uL (0-0.2); Basophils % (auto) 1.1 % (0.0-2.0); Eosinophils # (auto) 0.3 10 ^3/uL (0-0.8); Eosinophils % (auto) 5.4 % (0.0-7.0); Hematocrit 27.6 % (36.0-46.0); Hemoglobin 9.1 g/dL (12.2-16.2); Lymphocytes % (auto) 19.2 % (10.0-50.0); Mean Corpuscular Hemoglobin 28.6 pg (28.0-32.0); Mean Corpuscular Hgb Conc. 32.8 g/dL (32.0-36.0); Mean Corpuscular Volume 87.1 fL (80.0-100.0); Monocytes # (auto) 0.7 10 ^3/uL (0-1.3); Monocytes % (auto) 12.5 % (0.0-12.0); Neutrophils # (auto) 3.3 10 ^3/uL (1.6-8.6); Neutrophils % (auto) 61.8 % (37.0-80.0); Nucleated Red Blood Cells % 0.1 %; Red Blood Cells 3.17 10^6/uL (4.0-5.20); White Blood Cell 5.3 10^3/uL (4.4-10.8)
[2022-08-03 06:55] LABS: Red Cell Distribution Width 21.7 % (11.8-14.3)
[2022-08-03 07:02] LABS: Albumin 2.4 g/dL (3.4-5.0); Calcium 8.2 mg/dL (8.5-10.1); Potassium 3.7 mmol/L (3.5-5.1)
[2022-08-03 07:06] LABS: BUN/Creatinine Ratio 41.1 (10.0-20.0); Bilirubin, Total 0.6 mg/dL (0.2-1.0); Total Protein 6.1 g/dL (6.4-8.2)
[2022-08-03 09:00] VITALS: BP_SYST 145; BP_SYST 165; BP_DIAS 123; BP_DIAS 70
[2022-08-03] MEDS: cefTRIAXone 1GM/50ML D5W 50 ML IV SCH (10:12)
[2022-08-03] MEDS: PANTOPRAZOLE 40 MG/10 ML VIAL INJ IV SCH ×2 (10:12→22:10)
[2022-08-03 13:00] VITALS: BP_SYST 101; BP_SYST 105; BP_DIAS 68; BP_DIAS 70
[2022-08-03 17:00] VITALS: BP_SYST 109; BP_SYST 144; BP_DIAS 79; BP_DIAS 86
[2022-08-03 19:00] VITALS: BP 130/68
[2022-08-03] MEDS: ATORVASTATIN 20 MG TAB PO SCH (22:08)
[2022-08-04 05:00] VITALS: BP 119/67
[2022-08-04 05:52] LABS: Basophils # (auto) 0.1 10 ^3/uL (0-0.2); Eosinophils # (auto) 0.3 10 ^3/uL (0-0.8); Eosinophils % (auto) 5.6 % (0.0-7.0); Hemoglobin 8.8 g/dL (12.2-16.2); Lymphocytes # (auto) 1.1 10 ^3/uL (0.4-5.4); Lymphocytes % (auto) 22.1 % (10.0-50.0); Mean Corpuscular Hemoglobin 28.4 pg (28.0-32.0); Mean Corpuscular Hgb Conc. 32.5 g/dL (32.0-36.0); Mean Corpuscular Volume 87.4 fL (80.0-100.0); Monocytes # (auto) 0.7 10 ^3/uL (0-1.3); Monocytes % (auto) 14.1 % (0.0-12.0); Neutrophils % (auto) 57.2 % (37.0-80.0); Nucleated Red Blood Cells % 0.1 %; Red Blood Cells 3.09 10^6/uL (4.0-5.20); White Blood Cell 5.2 10^3/uL (4.4-10.8)
[2022-08-04 06:05] LABS: Red Cell Distribution Width 21.3 % (11.8-14.3)
[2022-08-04] MEDS: GABAPENTIN 400 MG CAP PO SCH (06:23)
[2022-08-04] MEDS: SUCRALFATE 1 GM TAB PO SCH ×4 (06:23→22:13)
[2022-08-04] MEDS: BUMETANIDE 2.5mg/10ml (0.25 mg/ml) INJ IV SCH ×2 (06:25→17:48)
[2022-08-04] MEDS: InsuLIN REG 1unit/0.01ml Soln (100units/ml) SC SCH ×4 (06:28→22:21)
[2022-08-04] MEDS: ACCU-CHEK COMFORT CURVE STRIP VI SCH ×4 (06:28→22:16)
[2022-08-04 08:50] VITALS: BP 132/69
[2022-08-04] MEDS: PANTOPRAZOLE 40 MG/10 ML VIAL INJ IV SCH ×2 (09:26→22:13)
[2022-08-04] MEDS: cefTRIAXone 1GM/50ML D5W 50 ML IV SCH (09:26)
[2022-08-04 12:33] VITALS: BP 124/79
[2022-08-04] MEDS: GABAPENTIN 300 MG CAP PO SCH ×2 (14:00→22:13)
[2022-08-04 15:54] VITALS: BP 153/63
[2022-08-04] MEDS: HYDROcodone-ACET 5/325MG TAB PO PRN (20:21)
[2022-08-04 22:00] VITALS: BP 154/90
[2022-08-04] MEDS: ATORVASTATIN 20 MG TAB PO SCH (22:12)
[2022-08-04] MEDS: DOCUSATE SOD 100 MG CAP PO PRN (22:15)
[2022-08-05] VITALS (9 sets, daily range): BP systolic 127–175; BP diastolic 77–103
[2022-08-05] MEDS: GABAPENTIN 300 MG CAP PO SCH ×3 (06:00→22:04)
[2022-08-05] MEDS: SUCRALFATE 1 GM TAB PO SCH ×4 (06:17→22:05)
[2022-08-05] MEDS: InsuLIN REG 1unit/0.01ml Soln (100units/ml) SC SCH ×4 (06:27→22:11)
[2022-08-05] MEDS: ACCU-CHEK COMFORT CURVE STRIP VI SCH ×4 (06:29→22:10)
[2022-08-05] MEDS: BUMETANIDE 2.5mg/10ml (0.25 mg/ml) INJ IV SCH ×2 (06:29→18:09)
[2022-08-05] MEDS ORDERED: LIDOCAINE 2%HCL (LOCAL ANESTH.) INJ 20ML MDV ONE (07:42)
[2022-08-05] MEDS ORDERED: IOHEXOL 350 MG/ML 100ML IJ ONE (07:43)
[2022-08-05] MEDS ORDERED: fentaNYL CITRATE 100 MCG/2 ML VL ONE (08:07)
[2022-08-05] MEDS ORDERED: MIDAZOLAM HCL 2MG/2ML 2ml VIAL (1mg/ml) ONE (08:07)
[2022-08-05] MEDS: cefTRIAXone 1GM/50ML D5W 50 ML IV SCH (09:00)
[2022-08-05] MEDS: HYDROcodone-ACET 5/325MG TAB PO PRN ×2 (09:58→22:05)
[2022-08-05] MEDS: PANTOPRAZOLE 40 MG/10 ML VIAL INJ IV SCH ×2 (10:00→22:05)
[2022-08-05 10:46] LABS: Basophils # (auto) 0.1 10 ^3/uL (0-0.2); Eosinophils # (auto) 0.2 10 ^3/uL (0-0.8); Eosinophils % (auto) 3.7 % (0.0-7.0); Hematocrit 32.1 % (36.0-46.0); Lymphocytes # (auto) 1.3 10 ^3/uL (0.4-5.4); Lymphocytes % (auto) 20.5 % (10.0-50.0); Mean Corpuscular Hgb Conc. 31.1 g/dL (32.0-36.0); Monocytes # (auto) 0.9 10 ^3/uL (0-1.3); Monocytes % (auto) 14.8 % (0.0-12.0); Neutrophils # (auto) 3.7 10 ^3/uL (1.6-8.6); Nucleated Red Blood Cells % 0.1 %; Red Blood Cells 3.56 10^6/uL (4.0-5.20); Red Cell Distribution Width 20.6 % (11.8-14.3); White Blood Cell 6.2 10^3/uL (4.4-10.8)
[2022-08-05 11:07] LABS: INR 1.27 (0.9-1.15); Partial Thromboplastin Time 31.3 SEC (24.5-34.5)
[2022-08-05 11:35] LABS: BUN/Creatinine Ratio 26.4 (10.0-20.0); Calcium 8.3 mg/dL (8.5-10.1); Potassium 3.5 mmol/L (3.5-5.1)
[2022-08-05 19:56] LABS: Magnesium 2.1 mg/dL (1.6-2.6); Phosphorus 3.3 mg/dL (2.5-4.90); Potassium 3.5 mmol/L (3.5-5.1)
[2022-08-05] MEDS: ATORVASTATIN 20 MG TAB PO SCH (22:04)
[2022-08-06] MEDS: HYDROcodone-ACET 5/325MG TAB PO PRN (02:17)
[2022-08-06 05:00] VITALS: BP 141/82
[2022-08-06] MEDS: SUCRALFATE 1 GM TAB PO SCH ×2 (06:56→11:25)
[2022-08-06] MEDS: GABAPENTIN 300 MG CAP PO SCH ×2 (06:56→13:55)
[2022-08-06] MEDS: ACCU-CHEK COMFORT CURVE STRIP VI SCH ×2 (06:57→11:25)
[2022-08-06] MEDS: InsuLIN REG 1unit/0.01ml Soln (100units/ml) SC SCH ×2 (06:57→11:26)
[2022-08-06] MEDS: BUMETANIDE 2.5mg/10ml (0.25 mg/ml) INJ IV SCH (06:58)
[2022-08-06 08:00] VITALS: BP 108/55
[2022-08-06 09:44] LABS: Basophils # (auto) 0.1 10 ^3/uL (0-0.2); Basophils % (auto) 1.2 % (0.0-2.0); Eosinophils # (auto) 0.3 10 ^3/uL (0-0.8); Eosinophils % (auto) 6.5 % (0.0-7.0); Hemoglobin 9.3 g/dL (12.2-16.2); Lymphocytes # (auto) 1.2 10 ^3/uL (0.4-5.4); Lymphocytes % (auto) 23.8 % (10.0-50.0); Mean Corpuscular Hemoglobin 28.1 pg (28.0-32.0); Mean Corpuscular Hgb Conc. 32.1 g/dL (32.0-36.0); Mean Corpuscular Volume 87.5 fL (80.0-100.0); Monocytes # (auto) 0.6 10 ^3/uL (0-1.3); Monocytes % (auto) 11.6 % (0.0-12.0); Neutrophils # (auto) 2.8 10 ^3/uL (1.6-8.6); Neutrophils % (auto) 56.9 % (37.0-80.0); Red Blood Cells 3.32 10^6/uL (4.0-5.20); Red Cell Distribution Width 19.8 % (11.8-14.3)
[2022-08-06] MEDS: PANTOPRAZOLE 40 MG/10 ML VIAL INJ IV SCH (09:44)
[2022-08-06] MEDS: cefTRIAXone 1GM/50ML D5W 50 ML IV SCH (09:45)
[2022-08-06 09:58] LABS: BUN/Creatinine Ratio 21.6 (10.0-20.0); Calcium 8.2 mg/dL (8.5-10.1); Potassium 3.3 mmol/L (3.5-5.1)
[2022-08-06] MEDS ORDERED: POTASSIUM CHL 20 Meq TABLET PO ONE (12:45)
[2022-08-06 13:10] VITALS: BP 145/75
== END 2022-08-06 14:07 | DRG 291 ==
LOC: TELE-EAST 22:14 → EAST 07-22 14:14 → TELE-EAST 08-01 15:27
PROVIDERS: ADMIT Nurse Practitioner Family; ATTEND Internal Medicine
PROC: 30233N1 Transfusion of Nonautologous Red Blood Cells into Peripheral Vein, Percutaneous Approach (ICD-10-PCS; 2022-07-29)
PROC: 30233K1 Transfusion of Nonautologous Frozen Plasma into Peripheral Vein, Percutaneous Approach (ICD-10-PCS; 2022-08-02)
PROC: 06H03DZ Insertion of Intraluminal Device into Inferior Vena Cava, Percutaneous Approach (ICD-10-PCS; principal; 2022-08-05)
DX: I13.0 Hypertensive heart and chronic kidney disease with heart failure and stage 1 through stage 4 chronic kidney disease, or unspecified chronic kidney disease (principal); E43 Unspecified severe protein-calorie malnutrition; I50.43 Acute on chronic combined systolic (congestive) and diastolic (congestive) heart failure; Z68.42 Body mass index [BMI] 45.0-49.9, adult; E11.22 Type 2 diabetes mellitus with diabetic chronic kidney disease; J44.9 Chronic obstructive pulmonary disease, unspecified; R62.7 Adult failure to thrive; E11.51 Type 2 diabetes mellitus with diabetic peripheral angiopathy without gangrene; D63.1 Anemia in chronic kidney disease; E78.5 Hyperlipidemia, unspecified; I25.10 Atherosclerotic heart disease of native coronary artery without angina pectoris; N18.9 Chronic kidney disease, unspecified; E66.01 Morbid (severe) obesity due to excess calories; F41.9 Anxiety disorder, unspecified; Z74.01 Bed confinement status; Z79.02 Long term (current) use of antithrombotics/antiplatelets; Z79.899 Other long term (current) drug therapy; Z80.0 Family history of malignant neoplasm of digestive organs; Z80.41 Family history of malignant neoplasm of ovary; Z82.49 Family history of ischemic heart disease and other diseases of the circulatory system; Z83.3 Family history of diabetes mellitus; Z87.19 Personal history of other diseases of the digestive system; Z95.828 Presence of other vascular implants and grafts; Z86.73 Personal history of transient ischemic attack (TIA), and cerebral infarction without residual deficits; Z90.710 Acquired absence of both cervix and uterus; Z88.6 Allergy status to analgesic agent; I08.3 Combined rheumatic disorders of mitral, aortic and tricuspid valves
CPT/HCPCS: 36415; 36600; 37619; 71045; 74176; 76000; 76937; 80048; 80053; 81001; 82270; 82607; 82728; 82746; 82805; 82962; 83036; 83540; 83550; 83615; 83735; 83880; 84100; 84132; 84484; 85014; 85018; 85025; 85045; 85610; 85730; 86850; 86900; 86901; 86920; 87081; 93306; 93970; 94640; 97110; 97116; 97163; 97530; 99152; C1894; C9113; G0378; J0696; J1815; J2250; J2405